=== PATIENT | female | born 1955 | race Caucasian/White ===

== ENCOUNTER → 2017-11-09 16:27 | Outpatient (CLI) | payer OTHER, SELFPAY ==
--- NOTE | 2017-11-09 16:27 | HPBI_ITS ---
MAMMOGRAPHY - BILATERAL SCREENING REASON FOR EXAM: Female, 62 years old. Routine annual screening examination. PERTINENT HISTORY: Mother with breast cancer. TECHNIQUE: Digital bilateral breast gina (3D mammographic acquisition) in the CC and MLO projections. 2-D mediolateral oblique (MLO) and craniocaudad (CC) views of both breasts were obtained. CAD: Full Field Digital Mammography with Computer Added Detection was performed. COMPARISON: Comparison is made with prior study dated October 21, 2016 and October 05, 2015. FINDINGS: Breast Composition: There are scattered areas of fibroglandular density. There are no dominant masses or suspicious calcifications. Once again, there are subcentimeters benign-appearing nodular densities in the retroareolar region of both breasts. Prior ultrasound of the breasts demonstrated them to be cysts and small calcified fibroadenomas. No other significant abnormalities are identified. There has been no significant change since the prior study. HPBI/SCREENING MAMM (CAD), BILAT IMPRESSION: Stable bilateral screening mammogram. Yearly follow-up mammogram recommended. (A) ASSESSMENT CATEGORY: BIRADS Category 2: Benign. A letter regarding these results will be sent to the patient by the facility within 30 days. Approximately 10% of breast cancers are not detected by mammography. A normal mammogram should not delay biopsy of a clinically suspicious abnormality. [id number] Electronically Signed: Fili Stone MD at 8:26 EST Tel [phone], Service support ,
== END ==
PROVIDERS: Family Provider Family Medicine; PCP Family Medicine
DX: Z12.31 Encounter for screening mammogram for malignant neoplasm of breast (principal)
CPT/HCPCS: 77063; 77067

== ENCOUNTER → 2018-03-23 15:31 | Outpatient (CLI) | payer OTHER, SELFPAY ==
--- NOTE | 2018-03-23 08:00 | COLBX_PTH ---
PATIENT: JONO GARCIA LOC: [facility] U#:[id number] AGE/SX: 70/F ROOM: RE03/23/[address]: Dr. Gera Sal MD : 1955 BED: DIS: SPEC #: [id number] RECD: 03/23/18 15:28 STATUS: ALE REBEKAH #: [id number] LEVON: 03/23/18 08:[address]: Gera Sal DEPT: SURGICAL PATHOLOGY RECD BY: Osmin Miller ENTERED: 03/26/18 07:46 SP TYPE: COLON BX MEJIA DR: Dr. Demarco Epstein, [facility] Tissues: COLON BIOPSY Procedures: Surgery Specimen Level IV HEADER OPERATION: Colonoscopy PRE-OP DIAGNOSIS: Screening / colitis TISSUE SUBMITTED: Right and left colon; rule out microscopic colitis MICROSCOPIC DIAGNOSIS Right and left colon, biopsy: Fragments of colonic mucosa, no pathologic diagnosis. DANILO:tay 03/27/18 MICROSCOPIC DESCRIPTION Slides are reviewed. GROSS DESCRIPTION Received in fixative is one container labeled with the patient's name and designated right and left colon. The specimen consists of multiple irregular fragments of light harrington soft tissue that in aggregate measure 1.5 x 0.5 x 0.1 cm. The specimen is totally submitted in one cassette. / SJ:rg 03/26/18 TC:4 CPT: 69004
== END ==
PROVIDERS: Visit Provider Internal Medicine Gastroenterology
DX: Z12.11 Encounter for screening for malignant neoplasm of colon (principal); K52.9 Noninfective gastroenteritis and colitis, unspecified
CPT/HCPCS: 88305

== ENCOUNTER → 2018-12-06 15:18 | Outpatient (CLI) | payer OTHER, SELFPAY ==
[2018-10-16 15:32] VITALS: BMI 21.8
--- NOTE | 2018-12-06 15:23 | BI_ITS ---
MAMMOGRAPHY - BILATERAL SCREENING REASON FOR EXAM: Female, 63 years old. Routine annual screening examination. PERTINENT HISTORY: Mother with breast cancer. TECHNIQUE: Digital bilateral breast gina (3D mammographic acquisition) in the CC and MLO projections. 2-D mediolateral oblique (MLO) and craniocaudad (CC) views of both breasts were obtained. CAD: Full Field Digital Mammography with Computer Added Detection was performed. COMPARISON: Comparison is made with prior examination dated November 09, 2017 and October 21, 2016. FINDINGS: Breast Composition: There are scattered areas of fibroglandular density. There are no dominant masses or suspicious calcifications. Once again, there are several small subcentimeter benign-appearing nodular densities in the retroareolar region of both breasts. Prior ultrasound of the breasts demonstrated these to be cysts and small calcified fibroadenomas. There has been no change. No other significant abnormalities are identified. There has been no significant change since the prior study. BI/SCREENING MAMM (CAD), BILAT IMPRESSION: Stable bilateral screening mammogram. Yearly follow-up mammogram recommended. (A) ASSESSMENT CATEGORY: BIRADS Category 2: Benign. A letter regarding these results will be sent to the patient by the facility within 30 days. Approximately 10% of breast cancers are not detected by mammography. A normal mammogram should not delay biopsy of a clinically suspicious abnormality. [id number] Electronically Signed: Fili Stone, at 9:40 EST , Service support ,
--- NOTE | 2018-12-06 15:27 | BD_ITS ---
STUDY: DUAL ENERGY X-RAY ABSORPTIOMETRY / DXA REASON FOR EXAM: Female, 63 years old. The patient is postmenopausal. Loss of height. TECHNIQUE: Bone Mineral Density (BMD) measurements of lumbar spine and bilateral hips were obtained. COMPARISON: None. FINDINGS: Lumbar Spine (L1-L4): g/cm2 (0.863) / T-score (-2.5) / Z-score (-1.0) Findings are suggestive of osteopenia with a high fracture risk. Left Femur Total: g/cm2 (0.774) / T-score (-1.9) / Z-score (-0.7) Left Femoral Neck: g/cm2 (0.729) / T-score (-2.2) / Z-score (-0.8) Right Femur Total: g/cm2 (0.724) / T-score (-2.3) / Z-score (-1.1) Right Femoral Neck: g/cm2 (0.700) / T-score (-2.4) / Z-score (-1.0) BD/Dexa Bone Density Study IMPRESSION: The patient is considered osteopenic as outlined below according to World Alexander Organization (WHO) criteria with a high fracture risk. Reference Information: The T-score is the number of standard deviations above or below the standard which is normal for young adults at their peak bone mineral density. The World Health Organization (WHO) interprets the T-scores as follows: Above -1 Normal bone density Between -1 and -2.5 Osteopenia Equal to / or below -2.5 Osteoporosis As a practical clinical guideline, osteopenia may be graded as follows: Mild -1 through -1.5 Moderate -1.6 through -2.0 Severe -2.1 through -2.4 The Z-score is the number of standard deviations above or below age-matched controls. A Z-score of less than -1.5 would be considered abnormal. References: 1. NIH Osteoporosis and Related Bone Diseases http://www.osteo.org 2. International Society for Clinical Densitometry http://www.iscd.org 3. National Osteoporosis Foundation http://www.nof.org Electronically Signed: Fili Stone, at 16:02 EST , Service support ,
[2018-12-06 17:14] LABS: Anion Gap 9 (5-15); BUN 12 mg/dL (7-18); BUN/Creat Ratio 17.8 RATIO (10-20); Calcium,Total 9.3 mg/dL (8.5-10.1); Chloride 105 mmol/L (98-107); Creatinine, Serum 0.68 mg/dL (0.55-1.02); EST Glomerular Filtration Rate 94 mL/min (>60); Est Glom Filt Rate - Afr Amer 113 mL/min (>60); Glucose 88 mg/dL (74-106); Potassium 4.3 mmol/L (3.5-5.1); Sodium Level 142 mmol/L (136-145)
== END ==
PROVIDERS: Family Provider Family Medicine; PCP Family Medicine; Referring Provider Family Medicine; Visit Provider Family Medicine
DX: Z12.31 Encounter for screening mammogram for malignant neoplasm of breast (principal); Z80.3 Family history of malignant neoplasm of breast; Z78.0 Asymptomatic menopausal state; K58.9 Irritable bowel syndrome, unspecified
CPT/HCPCS: 36415; 77067; 77080; 80048

== ENCOUNTER → 2019-12-09 07:29 | Outpatient (CLI) | payer OTHER, SELFPAY ==
[2019-10-16 15:33] VITALS: BMI 21.8
--- NOTE | 2019-12-09 07:30 | BI_ITS ---
MAMMOGRAPHY - BILATERAL SCREENING REASON FOR EXAM: Female, 64 years old. Routine annual screening examination. PERTINENT HISTORY: Mother with breast cancer. TECHNIQUE: Digital bilateral breast lisa (3D mammographic acquisition) in the CC and MLO projections. 2-D mediolateral oblique (MLO) and craniocaudad (CC) views of both breasts were obtained. CAD: Full Field Digital Mammography with Computer Added Detection was performed. COMPARISON: Comparison is made with prior study dated December 06, 2018 and November 09, 2017. FINDINGS: Breast Composition: There are scattered areas of fibroglandular density. There are no dominant masses or suspicious calcifications. Stable small well-defined bilateral breast nodules. Prior ultrasound demonstrated to be multiple small cysts as well as a calcified fibroadenoma in the retroareolar region of the right breast. No other significant abnormalities are identified. There has been no significant change since the prior study. BI/SCREEN MAMM (CAD) W/LISA BILAT IMPRESSION: Stable bilateral screening mammogram. Yearly follow-up mammogram recommended. (A) ASSESSMENT CATEGORY: BIRADS Category 2: Benign. A letter regarding these results will be sent to the patient by the facility within 30 days. Approximately 10% of breast cancers are not detected by mammography. A normal mammogram should not delay biopsy of a clinically suspicious abnormality. [id number] Electronically Signed: Fili Stone, at 9:30 EST , Service support ,
== END ==
PROVIDERS: Family Provider Family Medicine; PCP Family Medicine; Referring Provider Family Medicine; Visit Provider Family Medicine
DX: Z12.31 Encounter for screening mammogram for malignant neoplasm of breast (principal)
CPT/HCPCS: 77063; 77067

== ENCOUNTER → 2020-10-20 13:35 | Outpatient (CLI) | payer MEDICARE, SELFPAY ==
[2020-10-20 13:11] VITALS: BMI 20.4
[2020-10-20 15:39] LABS: Absolute Lymphocyte Count 2.46 X10^3/uL (0.83-4.51); Absolute Neutrophil Count 3.5 X10^3/uL (2.0-7.7); Basophil# 0.05 X10^3/uL; Basophil% 0.7 % (0-1); Eosinophils% 1.5 % (0-5); Hematocrit 44.7 % (37-47); Hemoglobin 14.2 g/dL (12.0-15.0); Lymphocyte # 2.46 X10^3/ul (4.0); Lymphocyte % 36.7 % (19-41); Mean Corp Hgb Conc 31.8 g/dL (32-36); Mean Corpuscular Hgb 30.3 pg (27.0-32.0); Mean Corpuscular Volume 95.3 fL (81-99); Mean Platelet Vol. 9.7 fl (6.2-12.0); Monocyte# 0.59 X10^3/uL; Monocyte% 8.8 % (0-10); NRBC Flagged by Analyzer 0 % (0-5); Neutrophil # 3.47 X10^3/uL (2.7-7.7); Neutrophil % 51.9 % (47-70); Platelet Count 222 K/mm3 (150-450); RBC Distribution Width CV 13.6 % (11.6-14.6); RBC Distribution Width SD 48.2 fl (35.1-43.9); Red Blood Count 4.69 M/mm3 (4.2-5.4); White Blood Count 6.7 K/mm3 (4.4-11.0)
[2020-10-20 16:46] LABS: Anion Gap 5 (5-15); BUN 12 mg/dL (7-18); BUN/Creat Ratio 17.1 RATIO (10-20); Calcium,Total 9.3 mg/dL (8.5-10.1); Chloride 105 mmol/L (98-107); EST Glomerular Filtration Rate 89 mL/min (>60); Est Glom Filt Rate - Afr Amer 107 mL/min (>60); Glucose 127 mg/dL (74-106); Potassium 3.8 mmol/L (3.5-5.1); Sodium Level 139 mmol/L (136-145)
== END ==
PROVIDERS: PCP Family Medicine; Referring Provider Family Medicine; Visit Provider Family Medicine
DX: R63.4 Abnormal weight loss (principal); E73.9 Lactose intolerance, unspecified
CPT/HCPCS: 36415; 80048; 85025

== ENCOUNTER → 2020-12-09 07:46 | Outpatient (CLI) | payer MEDICARE, SELFPAY ==
[2020-10-20 13:11] VITALS: BMI 20.4
--- NOTE | 2020-12-09 07:48 | BI_ITS ---
MAMMOGRAPHY - BILATERAL SCREENING REASON FOR EXAM: Female, 65 years old. Routine annual screening examination. PERTINENT HISTORY: Non-contributory. TECHNIQUE: Digital bilateral breast lisa (3D mammographic acquisition) in the CC and MLO projections. 2-D mediolateral oblique (MLO) and craniocaudad (CC) views of both breasts were obtained. CAD: Full Field Digital Mammography with Computer Added Detection was performed. COMPARISON: Comparison is made with prior study dated 12/09/2019 and 07/06/2019. FINDINGS: Breast Composition: There are scattered areas of fibroglandular density. There are no dominant masses or suspicious calcifications. Stable small well-defined lateral rest nodules. Prior sonograms demonstrated these to be small cysts. Stable calcified fibroadenoma in the retroareolar region of the right breast. No other significant abnormalities are identified. There has been no significant change since the prior study. BI/SCRN MAMM (CAD)W/LISA BILAT IMPRESSION: Stable bilateral screening mammogram. Yearly follow-up mammogram recommended. (A) ASSESSMENT CATEGORY: BIRADS Category 2: Benign. A letter regarding these results will be sent to the patient by the facility within 30 days. Approximately 10% of breast cancers are not detected by mammography. A normal mammogram should not delay biopsy of a clinically suspicious abnormality. [id number] Electronically Signed: Fili Stone MD at 8:48 EST , Service support ,
== END ==
PROVIDERS: PCP Family Medicine; Referring Provider Family Medicine; Visit Provider Family Medicine
DX: Z12.31 Encounter for screening mammogram for malignant neoplasm of breast (principal)
CPT/HCPCS: 77063; 77067

== ENCOUNTER 2020-12-17 07:29 | Outpatient (RCR) | payer MEDICARE, SELFPAY ==
[2020-10-20 13:11] VITALS: BMI 20.4
[2020-12-17] MEDS: COVID-19 VACC, MRNA(PFIZER)/PF 30 MCG/0.3 ML SYRINGE IM (12:41)
[2021-01-07] MEDS: COVID-19 VACC, MRNA(PFIZER)/PF 30 MCG/0.3 ML SYRINGE IM (12:38)
== END 2021-03-16 23:59 ==
LOC: IMMUN 07:29
PROVIDERS: PCP Family Medicine; Referring Provider Family Medicine; Visit Provider Family Medicine
DX: Z23 Encounter for immunization (principal)
CPT/HCPCS: 0001A; 0002A; 91300

== ENCOUNTER → 2021-04-20 14:30 | Outpatient (CLI) | payer MEDICARE, SELFPAY ==
[2021-04-20 14:07] VITALS: BMI 20.4
[2021-04-20 15:48] LABS: Amylase 61 U/L (25-115); Anion Gap 3 (5-15); BUN 14 mg/dL (7-18); BUN/Creat Ratio 19.6 RATIO (10-20); Calcium,Total 9.2 mg/dL (8.5-10.1); Chloride 104 mmol/L (98-107); Creatinine, Serum 0.71 mg/dL (0.55-1.02); EST Glomerular Filtration Rate 87 mL/min (>60); Est Glom Filt Rate - Afr Amer 105 mL/min (>60); Glucose 87 mg/dL (74-106); Lipase 216 U/L (73-393); Sodium Level 140 mmol/L (136-145)
== END ==
PROVIDERS: PCP Family Medicine; Referring Provider Family Medicine; Visit Provider Family Medicine
DX: R63.4 Abnormal weight loss (principal)
CPT/HCPCS: 36415; 80048; 82150; 83690

== ENCOUNTER 2021-04-21 14:55 | Inpatient (IN) | payer MEDICARE, SELFPAY ==
[2021-04-20 14:07] VITALS: BMI 20.4
[2021-04-21] VITALS (12 sets, daily range): BP systolic 155–213; BP diastolic 86–110; PULSE 74–94; RESP 14–18; TEMP 36.5–37.2; O2SAT 92–100; BMI 19.2; BMI 19.1
--- NOTE | 2021-04-21 | IMM_PTH ---
PATIENT: JONO GACRIA LOC: [facility] U#:[id number] AGE/SX: 66/F ROOM: [facility] RE04/22/[address]: Dr. Aidan Parr DO : 1955 BED: 1 DIS: 04/24/2021 SPEC #: [id number] RECD: 04/27/21 07:35 STATUS: ALE REQ #: [id number] LEVON: 04/21/21 00:[address]: Gilberto Matt DEPT: IMMUNOHISTOCHEMISTRY RECD BY: Sydney Cm ENTERED: 04/27/21 07:36 SP TYPE: IMMUNO OTHR DR: DO Dr. Aidan Lozano DO Dr. Nana Yaa Koram, MD Tissues: C - Small intestine biopsy Procedures: Synapto (add) CD56 (add) CHROMO (add) CK20 (add) CK7 (add) CK8 (add) KI-67 (add) Pankeratin (initial) PHYSICIAN & [address] [address] SPECIMEN INFORMATION: Tissue Source: C ? Small bowel segment Clinical Info: Abnormal right colon Specimen Number: [id number] C2 CPT code: 43881, 11382 x7 METHODOLOGY: Deparaffinized sections of prefer/formalin-fixed tissue or PAP/DQ stained slides are incubated with monoclonal/polyclonal antibodies/oligonucleotide probes. Localization is made via biotin free immunoperoxidase method. Appropriate controls are performed and reacted as expected. Results on target cell population are indicated in the following table: RESULTS: ANTIBODY / CLONE RESULT Block C2 AE1-3 (AE1/AE3/PCK26) positive CK7 (OV-TL12/30) negative CK8 (67ctgvR96) positive CK20 (KS20.8) negative CD56 (123C3.D5) positive, weak and focal Chromo (LK2H10) positive Synapto (polyclonal) positive Ki-67 (30-9) <1% These tests were developed and their performance characteristics determined by [facility]. They may not have been cleared or approved by the U.S. Food and Drug Administration. The FDA has determined that such clearance or approval is not necessary. The above immunohistochemical/dualISH markers are ordered and reviewed by the Pathologist. INTERPRETATION: C. Small bowel, segmental resection: Well-differentiated neuroendocrine tumor, G1 (carcinoid tumor). DANILO:tay 04/27/2021 Case has been reviewed in consultation with Dr. Barrett who concurs with the above diagnosis. IDC:AM
--- NOTE | 2021-04-21 15:37 | EDS_ITS ---
HPI <Dr. Nato Arroyo MD - Last Filed: 04/21/21 17:05> HPI - GI History of Present Illness Chief Complaint: Abd Pain Informant: patient and spouse/S.O. Abdominal Pain/Flank Pain Onset: Yesterday Context: Gradual Onset Timing: Continuous Quality: Aching Location: Diffuse Current Severity: Severe Maximum Severity: Severe Worsened by: Nothing Relieved by: Nothing (Tried Tylenol) Nausea/Vomiting/Emesis GI Symptom: Positive for Nausea and Vomiting Quality: Positive for Nonbilious; Negative for Blood streaks, Coffee ground and Hematemesis Severity: Mild Diarrhea/Melena/Hematochezia GI Symptom: Positive for - (No bowel movement today or yesterday. Normal prior to that.); Negative for Diarrhea, Melena and Hematochezia Associated Symptoms Associated Symptoms: Negative for Dysuria, Frequency, Hematuria and Urgency Narrative Narrative: Patient states she has been having intermittent episodes of this abdominal pain for over 2 years. She states episodes typically last about 5 hours. She started getting it yesterday and happened to have a routine appointment scheduled with her PCP, and had it while she was there. He ordered some blood work and the patient states he was ordering a CT scan. The pain has been persistent and unrelenting which is unusual, and the severity has increased. Given that she presents to the emergency department under her doctor's advice prior to approval of the outpatient CT. [facility] <Dr. Nato Arroyo MD - Last Filed: 04/21/21 17:05> [facility] Medical History (Updated 04/21/21 @ 19:[address] Junito Rajput, DO) Anxiety Arthritis Depression IBS (irritable bowel syndrome) Osteopenia Home Medications alprazolam 0.25 mg tablet 0.25 mg PO TID PRN #90 tab 01/19/21 [Rx Last Taken 04/21/21] acetaminophen [Tylenol Extra Strength] 1,000 mg PO Q6H PRN 04/21/21 [History Last Taken 04/21/21 11:00] hydrocodone 10 mg-acetaminophen 325 mg tablet 1 tab PO Q6H PRN 4 Days #20 tab 04/21/21 [Rx Last Taken Unknown] paroxetine HCl [Paxil] 20 mg PO DAILY 04/21/21 [History Last Taken 04/21/21] Allergy/AdvReac Type Severity Reaction Status Date / Time ibuprofen [From Advil] Allergy Intermediate stomach Verified 04/21/21 14:56 problems Family History Mother Breast cancer Father Cancer Surgical History History of colonoscopy History of partial hysterectomy Social History Smoking Status: Current every day smoker tobacco type: cigarettes alcohol intake: current alcohol intake frequency: holidays/special occasions only Alcohol type: wine substance use type: does not use what type of physical activity do you participate in: walking and bicycling ROS <Dr. Nato Arroyo MD - Last Filed: 04/21/21 17:05> ROS ED Constitutional Constitutional ED: Reports weight loss and other Details: Has unintentionally lost about 20 pounds in the past 6-12 months ; Denies chills or fever(s) Eyes Eyes: Denies change in vision or diplopia ENT ENT ED: Denies rhinorrhea or sore throat Cardiovascular Cardiovascular: Denies chest pain or palpitations Respiratory/Chest Respiratory/Chest: Denies cough or dyspnea Gastrointestinal Gastrointestinal: Reports abdominal pain, nausea and vomiting; Denies diarrhea Genitourinary Genitourinary ED: Denies dysuria or hematuria Musculoskeletal Musculoskeletal: Denies back pain or neck pain Integumentary Denies abscess or rash Neurologic Neurologic: Denies headache(s), paresthesias or weakness Psychiatric Psychiatric: Denies anxiety or suicidal thoughts EXAM <Dr. Nato Arroyo MD - Last Filed: 04/21/21 17:05> Physical Exam Const Vital Signs: 04/21/21 14:56 04/21/21 17:18 04/21/21 17:42 Temperature 97.8 F Temperature Source Temporal Pulse Rate 94 74 77 Respiratory Rate 17 18 18 Blood Pressure 155/101 H 190/110 H 207/102 H Blood Pressure Mean 119 136 137 Blood Pressure Source Blood Pressure Position Blood Pressure Location Pulse Ox 96 98 95 Oxygen Delivery Method Room Air Room Air Room Air 04/21/21 18:11 04/21/21 18:46 04/21/21 19:01 Temperature 98.9 F 98.9 F Temperature Source Temporal Temporal Pulse Rate 77 77 77 Respiratory Rate 16 16 16 Blood Pressure 213/103 H 187/99 H 187/99 H Blood Pressure Mean 139 128 128 Blood Pressure Source Monitor Blood Pressure Position Semi-Fowlers Blood Pressure Location Right Arm Pulse Ox 93 96 96 Oxygen Delivery Method Room Air Room Air Room Air Positive well nourished and well developed Constitutional Narrative: Thin General Appearance ED: well developed and NAD HEENT Reports moist mucous membranes normocephalic and atraumatic Eyes PERRL and EOMs intact bilaterally Neck full ROM and supple Resp normal respiratory effort and clear to auscultation bilaterally Cardio regular rate, regular rhythm and no murmurs GI GI Narrative: Distended, soft, diffusely tender but mostly in the epigastrium and left upper quadrant, and even more so in the right lower quadrant with voluntary guarding, no rebound tenderness Auscultation: normoactive bowel sounds Palpation: soft Back/Spine no CVA tenderness General Back: other FROM Extremity normal to inspection General Extremety ED: Negative for edema, pulses abnormal or tenderness General Extremity: Negative for edema or pulses abnormal Neuro oriented x3, CN's II-XII intact bilaterally and no sensory deficits noted Sensorium / Orientation: awake and alert Motor Exam: strength 5/5 throughout Skin no rashes or lesions noted and no wounds <Dr. Junito Rajput DO - Last Filed: 04/21/21 19:11> Physical Exam Const Vital Signs: 04/21/21 14:56 04/21/21 17:18 04/21/21 17:42 Temperature 97.8 F Temperature Source Temporal Pulse Rate 94 74 77 Respiratory Rate 17 18 18 Blood Pressure 155/101 H 190/110 H 207/102 H Blood Pressure Mean 119 136 137 Blood Pressure Source Blood Pressure Position Blood Pressure Location Pulse Ox 96 98 95 Oxygen Delivery Method Room Air Room Air Room Air 04/21/21 18:11 04/21/21 18:46 04/21/21 19:01 Temperature 98.9 F 98.9 F Temperature Source Temporal Temporal Pulse Rate 77 77 77 Respiratory Rate 16 16 16 Blood Pressure 213/103 H 187/99 H 187/99 H Blood Pressure Mean 139 128 128 Blood Pressure Source Monitor Blood Pressure Position Semi-Fowlers Blood Pressure Location Right Arm Pulse Ox 93 96 96 Oxygen Delivery Method Room Air Room Air Room Air MDM <Dr. Nato Arroyo MD - Last Filed: 04/21/21 17:05> [facility] MDM Narrative Medical decision making narrative: Labs were obtained and noted. She does have a leukocytosis that is relatively mild. CT ordered. Patient treated with IV fluids, Zofran, morphine. Checked out to oncoming emergency physician at shift change. Lab Data Attestation: I reviewed the patient's lab results. Labs: Laboratory Results - last 24 hr 04/21/21 04/21/21 04/21/21 16:20 16:20 17:12 WBC 13.9 H RBC 5.46 H Hgb 16.8 H Hct 50.6 H MCV 92.7 MCH 30.8 MCHC 33.2 RDW Std Deviation 44.9 H RDW Coeff of Reece 13.2 Plt Count 228 MPV 9.2 Immature Gran % (Auto) 0.300 Neut % (Auto) 76.9 H Lymph % (Auto) 15.0 L [place] % (Auto) 7.2 Eos % (Auto) 0.2 Baso % (Auto) 0.4 Absolute Neuts (auto) 10.7 H Absolute Lymphs (auto) 2.09 Nucleated RBC % 0 Sodium 134 L Potassium 3.8 Chloride 101 Carbon Dioxide 25.0 Anion Gap 8 BUN 13 Creatinine 0.69 Estim Creat Clear Calc 43.07 Est GFR (MDRD) Af Amer 109 Est GFR (MDRD) Non-Af 90 BUN/Creatinine Ratio 18.7 Glucose 135 H Calcium 9.3 Total Bilirubin 0.60 AST 16 ALT 26 Alkaline Phosphatase 104 Total Protein 8.1 Albumin 4.2 Globulin 3.9 Albumin/Globulin Ratio 1.1 Urine Color Yellow Urine Clarity Clear Urine pH 6.0 Ur Specific Spray 1.020 Urine Protein 100 H Urine Glucose (UA) Normal Urine Ketones 50 H Urine Occult Blood 150 H Urine Nitrite Negative Urine Bilirubin Negative Urine Urobilinogen Normal Ur Leukocyte Esterase Negative Urine RBC 10-25 SEEN Urine WBC 0 SEEN Ur Squamous Epith Cells 0 SEEN Urine Bacteria 1+ Urine Mucus 1+ Radiography Diagnostic Testing: Radiology Impression Abdomen/Pelvis CT 04/21/21 17:20 IMPRESSION: 1. 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 2. Secondary mild to moderate free fluid. Electronically Signed: Nicholas Cardenas MD at 17:48 EDT , Service support , <Dr. Junito Rajput, DO - Last Filed: 04/21/21 19:11> [facility] Narrative Medical decision making narrative: Patient signed out to me due to end of shift. I did follow-up on the patient's CT scan. This was read as a mesenteric volvulus with at least a partial bowel obstruction. I did speak with the on- call general surgeon, Dr. Matt who came to bedside to evaluate the patient. He is planning on taking patient to the operating room now. Patient otherwise has remained stable throughout ED stay. She is in no acute distress on my reexamination. Patient explained all findings and she is agreeable with this plan. Lab Data Labs: Laboratory Results - last 24 hr 04/21/21 04/21/21 04/21/21 16:20 16:20 17:12 WBC 13.9 H RBC 5.46 H Hgb 16.8 H Hct 50.6 H MCV 92.7 MCH 30.8 MCHC 33.2 RDW Std Deviation 44.9 H RDW Coeff of Reece 13.2 Plt Count 228 MPV 9.2 Immature Gran % (Auto) 0.300 Neut % (Auto) 76.9 H Lymph % (Auto) 15.0 L [place] % (Auto) 7.2 Eos % (Auto) 0.2 Baso % (Auto) 0.4 Absolute Neuts (auto) 10.7 H Absolute Lymphs (auto) 2.09 Nucleated RBC % 0 Sodium 134 L Potassium 3.8 Chloride 101 Carbon Dioxide 25.0 Anion Gap 8 BUN 13 Creatinine 0.69 Estim Creat Clear Calc 43.07 Est GFR (MDRD) Af Amer 109 Est GFR (MDRD) Non-Af 90 BUN/Creatinine Ratio 18.7 Glucose 135 H Calcium 9.3 Total Bilirubin 0.60 AST 16 ALT 26 Alkaline Phosphatase 104 Total Protein 8.1 Albumin 4.2 Globulin 3.9 Albumin/Globulin Ratio 1.1 Urine Color Yellow Urine Clarity Clear Urine pH 6.0 Ur Specific Spray 1.020 Urine Protein 100 H Urine Glucose (UA) Normal Urine Ketones 50 H Urine Occult Blood 150 H Urine Nitrite Negative Urine Bilirubin Negative Urine Urobilinogen Normal Ur Leukocyte Esterase Negative Urine RBC 10-25 SEEN Urine WBC 0 SEEN Ur Squamous Epith Cells 0 SEEN Urine Bacteria 1+ Urine Mucus 1+ Radiography Diagnostic Testing: Radiology Impression Abdomen/Pelvis CT 04/21/21 17:20 IMPRESSION: 1. 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 2. Secondary mild to moderate free fluid. Electronically Signed: Nicholas Cardenas MD at 17:48 EDT , Service support , Discharge Plan Dx/Rx/DC Orders Clinical Impression: Volvulus, Bowel obstruction, Abdominal pain Disposition Disposition: Acute Care Hospital [facility] Discharge Date/Time: 04/21/21 19:10
[2021-04-21] MEDS: 0.9% Normal Saline 1,000 ML 1000 ML IV (16:12)
[2021-04-21] MEDS: Ondansetron 4 MG/2 ML Vial IV ×2 (16:12→17:36)
[2021-04-21] MEDS: Morphine 4 MG/ML Syringe IV (16:12)
[2021-04-21 16:36] LABS: Absolute Lymphocyte Count 2.09 X10^3/uL (0.83-4.51); Absolute Neutrophil Count 10.7 X10^3/uL (2.0-7.7); Basophil# 0.05 X10^3/uL; Basophil% 0.4 % (0-1); Eosinophil# 0.03 X10^3/uL; Eosinophils% 0.2 % (0-5); Hematocrit 50.6 % (37-47); Hemoglobin 16.8 g/dL (12.0-15.0); Lymphocyte # 2.09 X10^3/ul (0.83-4.51); Mean Corp Hgb Conc 33.2 g/dL (32-36); Mean Corpuscular Hgb 30.8 pg (27.0-32.0); Mean Corpuscular Volume 92.7 fL (81-99); Mean Platelet Vol. 9.2 fl (6.2-12.0); Monocyte% 7.2 % (0-10); NRBC Flagged by Analyzer 0 % (0-5); Neutrophil % 76.9 % (47-70); Platelet Count 228 K/mm3 (150-450); RBC Distribution Width CV 13.2 % (11.6-14.6); RBC Distribution Width SD 44.9 fl (35.1-43.9); Red Blood Count 5.46 M/mm3 (4.2-5.4); White Blood Count 13.9 K/mm3 (4.4-11.0)
[2021-04-21 17:01] LABS: ALB/GLOB Ratio 1.1 RATIO (0.9-2.4); AST(SGOT) 16 U/L (15-37); Alanine Aminotransfer ALT/SGPT 26 U/L (13-56); Albumin, Serum 4.2 g/dL (3.2-5.0); Alkaline Phosphatase 104 U/L (45-117); Anion Gap 8 (5-15); BUN 13 mg/dL (7-18); BUN/Creat Ratio 18.7 RATIO (10-20); Calcium,Total 9.3 mg/dL (8.5-10.1); Chloride 101 mmol/L (98-107); Creatinine, Serum 0.69 mg/dL (0.55-1.02); EST Glomerular Filtration Rate 90 mL/min (>60); Est Glom Filt Rate - Afr Amer 109 mL/min (>60); Estimated Creatinine Clearance 43.07 ml/min; Globulin 3.9 g/dL (2.2-4.2); Glucose 135 mg/dL (74-106); Potassium 3.8 mmol/L (3.5-5.1); Protein, Total 8.1 g/dL (6.4-8.2); Sodium Level 134 mmol/L (136-145)
--- NOTE | 2021-04-21 17:20 | CT_ITS ---
EXAM: CT ABDOMEN AND PELVIS WITH INTRAVENOUS CONTRAST CLINICAL INDICATION: diffuse abd pain, n/v TECHNIQUE: Helically acquired images were obtained of the abdomen and pelvis with intravenous contrast. This CT exam was performed using one or more of the following dose reduction techniques: automated exposure control, adjustment of the mA and/or kV according to patient size, and/or use of iterative reconstruction technique. [employer] report generation technology utilized. CONTRAST: IV 75mL [id number] COMPARISON: None. FINDINGS: LOWER THORAX: Unremarkable. Lung bases are clear. No cardiomegaly. No significant pericardial effusion. ABDOMEN: LIVER: Unremarkable. Homogeneous. No focal mass. GALLBLADDER AND BILE DUCTS: Unremarkable. No calcified gallstones. Distended gallbladder. No intra- or extrahepatic biliary ductal dilation. PANCREAS: Unremarkable. No focal cystic or solid mass. SPLEEN: Unremarkable. Normal size without focal cystic or solid mass. ADRENALS: Unremarkable. No nodules. KIDNEYS AND URETERS: Unremarkable. Normal renal size and position. No hydronephrosis. STOMACH AND BOWEL: Evaluation of the GI tract is limited by absence of oral contrast. Grossly normal appearance of the stomach and small bowel. Markedly distended right colon with a thickened wall and prominent adjacent edema. Findings appear to be related to cecal volvulus which can be seen on axial images 58-68 and coronal images 29-47. PELVIS: APPENDIX: No evidence of acute appendicitis. BLADDER: Unremarkable. REPRODUCTIVE: Absent uterus. ABDOMEN and PELVIS: INTRAPERITONEAL SPACE: Small to moderate free fluid especially in the pelvis. No free air. BONES/JOINTS: Degenerative changes of the skeletal structures. No suspicious lytic or blastic abnormality. SOFT TISSUES: Unremarkable. No discrete abdominal or pelvic wall hernia. VASCULATURE: Prominently calcified plaque of the aorta. Abdominal aorta is non-dilated. LYMPH NODES: Unremarkable. No enlarged lymph nodes. CT/Abdomen/Pelvis W IV Cont ONLY IMPRESSION: 1. 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 2. Secondary mild to moderate free fluid. Electronically Signed: Nicholas Cardenas MD at 17:48 EDT , Service support ,
[2021-04-21 17:21] LABS: Color, Urine Yellow (Yellow); Glucose, Dipstick Normal (Normal); Ketone-Dipstick 50 mg/dl (Negative); Leukocyte Esterase-Dipstick Negative /ul (Negative); Nitrite-Dipstick Negative (Negative); Occult Blood-Urine 150 /ul (Negative); Protein-Dipstick 100 mg/dl (Negative); Squamous Epithelial Cells - UA 0 SEEN /hpf (5-10); Urine Bilirubin Dipstick Negative (Negative); Urine Clarity Clear (Clear); Urine Urobilinogen Normal (Normal); White Blood Cells 0 SEEN /hpf (0-5)
[2021-04-21] MEDS: HYDROmorphone 0.5 MG/0.5 ML SYRINGE IV (17:37)
[2021-04-21 17:53] LABS: Bacteria 1+ /hpf (None Seen); Mucous, Urine 1+ /hpf (<or=2+); Red Blood Cells-Urine 10-25 SEEN /hpf (0-5)
--- NOTE | 2021-04-21 18:23 | EKG12_ITS ---
Test Reason : PRE-OP Blood Pressure : / mmHG Vent. Rate : 073 BPM Atrial Rate : 073 BPM P-R Int : 172 ms QRS Dur : 074 ms QT Int : 420 ms P-R-T Axes : 060 -44 056 degrees QTc Int : 462 ms Normal sinus rhythm Left axis deviation Low voltage QRS Abnormal ECG Confirmed by LESLIE CORNELL, BLANE ([id number]), brands editor ZACHERY RODRIGUEZ ([id number]) on 04/23/2021 9:24:44 AM Referred By: Gilberto Matt Confirmed By:KYLAH NELSON MD
--- NOTE | 2021-04-21 18:53 | HP.PCM.SX_ITS ---
HPI - General HPI Narrative JEFFERY GARCIA, is a 66 F who presents with abdominal pain. Patient been having on and off abdominal pain for last few months but yesterday she started having pain that did not go away. She does not have any nausea vomiting. Pain is in the right side of her abdomen. Patient denies any fevers or chills. [facility] Medical History (Updated 04/21/21 @ 18:[address] Gilberto Matt MD) Anxiety Arthritis Depression IBS (irritable bowel syndrome) Osteopenia Home Medications alprazolam 0.25 mg tablet 0.25 mg PO TID PRN #90 tab 01/19/21 [Rx Last Taken 04/21/21] acetaminophen [Tylenol Extra Strength] 1,000 mg PO Q6H PRN 04/21/21 [History Last Taken 04/21/21 11:00] hydrocodone 10 mg-acetaminophen 325 mg tablet 1 tab PO Q6H PRN 4 Days #20 tab 04/21/21 [Rx Last Taken Unknown] paroxetine HCl [Paxil] 20 mg PO DAILY 04/21/21 [History Last Taken 04/21/21] Allergy/AdvReac Type Severity Reaction Status Date / Time ibuprofen [From Advil] Allergy Intermediate stomach Verified 04/21/21 14:56 problems Family History Mother Breast cancer Father Cancer Surgical History History of colonoscopy History of partial hysterectomy Social History Smoking Status: Current every day smoker tobacco type: cigarettes alcohol intake: current alcohol intake frequency: holidays/special occasions only Alcohol type: wine substance use type: does not use what type of physical activity do you participate in: walking and bicycling ROS Constitutional Constitutional: Denies anorexia or fatigue ENT HEENT: Denies abnormal hearing Cardiovascular Cardiovascular: Denies chest pain Respiratory/Chest Respiratory/Chest: Denies cough Gastrointestinal Gastrointestinal: Reports abdominal pain and nausea; Denies diarrhea, dysphagia, hematemesis or vomiting Genitourinary Genitourinary: Denies difficulty urinating Musculoskeletal Musculoskeletal: Denies abnormal gait Integumentary Integumentary: Denies jaundice Neurologic Neurologic: Denies dizziness Psychiatric Psychiatric: Denies anxiety Endocrine Endocrinology: Denies flushing Hematologic/Lymphatic Hematologic/Lymphatic: Denies easy bleeding Vital Signs Vital Signs Vital Signs: 04/21/21 14:56 04/21/21 17:18 04/21/21 17:42 Temperature 97.8 F Temperature Source Temporal Pulse Rate 94 74 77 Respiratory Rate 17 18 18 Blood Pressure 155/101 H 190/110 H 207/102 H Blood Pressure Mean 119 136 137 Pulse Ox 96 98 95 Oxygen Delivery Method Room Air Room Air Room Air 04/21/21 18:11 Temperature Temperature Source Pulse Rate 77 Respiratory Rate 16 Blood Pressure 213/103 H Blood Pressure Mean 139 Pulse Ox 93 Oxygen Delivery Method Room Air Weight Weight: 108 lb 11.006 oz Body Mass Index (BMI) 19.2 Physical Exam Const oriented x3 and no apparent distress Resp normal respiratory effort Cardio regular rate and regular rhythm GI soft to palpation Palpation: tender RLQ and RUQ Extremity full ROM Results Lab / Micro Data Result Diagrams: 04/21/21 16:20 04/21/21 16:20 Labs: Laboratory Results - last 24 hr 04/21/21 16:20: WBC 13.9 H, RBC 5.46 H, Hgb 16.8 H, Hct 50.6 H, MCV 92.7, MCH 30.8, MCHC 33.2, RDW Std Deviation 44.9 H, RDW Coeff of Reece 13.2, Plt Count 228, MPV 9.2, Immature Gran % (Auto) 0.300, Neut % (Auto) 76.9 H, Lymph % (Auto) 15.0 L, [place] % (Auto) 7.2, Eos % (Auto) 0.2, Baso % (Auto) 0.4, Absolute Neuts (auto) 10.7 H, Absolute Lymphs (auto) 2.09, Nucleated RBC % 0 04/21/21 16:20: Sodium 134 L, Potassium 3.8, Chloride 101, Carbon Dioxide 25.0, Anion Gap 8, BUN 13, Creatinine 0.69, Estim Creat Clear Calc 43.07, Est GFR (MD LOMELI) Af Amer 109, Est GFR (MDRD) Non-Af 90, BUN/Creatinine Ratio 18.7, Glucose 135 H, Calcium 9.3, Total Bilirubin 0.60, AST 16, ALT 26, Alkaline Phosphatase 104, Total Protein 8.1, Albumin 4.2, Globulin 3.9, Albumin/Globulin Ratio 1.1 04/21/21 17:12: Urine Color Yellow, Urine Clarity Clear, Urine pH 6.0, Ur Specific [place] 1.020, Urine Protein 100 H, Urine Glucose (UA) Normal, Urine Ketones 50 H, Urine Occult Blood 150 H, Urine Nitrite Negative, Urine Bilirubin Negative, Urine Urobilinogen Normal, Ur Leukocyte Esterase Negative, Urine RBC 10-25 SEEN, Urine WBC 0 SEEN, Ur Squamous Epith Cells 0 SEEN, Urine Bacteria 1+, Urine Mucus 1+ Radiology Impression Abdomen/Pelvis CT 04/21/21 17:20 IMPRESSION: 1. 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 2. Secondary mild to moderate free fluid. Electronically Signed: Nicholas Cardenas MD at 17:48 EDT , Service support , Assessment & Plan Assessment/Plan (1) Cecal volvulus: PLAN: The patient has significant abdominal pain. I reviewed her CT scan which shows a significant amount of free fluid as well as enlarged cecum and mesenteric swirling suggestive of cecal volvulus. Patient also has elevated white count. I discussed all these findings with the patient and her . I recommended exploratory laparotomy with right hemicolectomy. I discussed the procedure in detail including the risks including but not limited to bleeding, infection, injury to underlying organs such as the small bowel bladder or kidney, anastomotic leak. Patient understands risks and is willing proceed with surgery. Gilberto Matt MD Pager: [facility] [address] [place] [address], [address] [place] [address] Office:
--- NOTE | 2021-04-21 19:00 | COL_PTH ---
PATIENT: JONO GARCIA LOC: [facility] U#:[id number] AGE/SX: 66/F ROOM: [facility] RE04/22/[address]: Dr. Aidan Parr DO : 1955 BED: 1 DIS: 04/24/2021 SPEC #: [id number] RECD: 04/22/21 06:33 STATUS: ALE REMaximilian #: [id number] LEVON: 04/21/21 19:[address]: Gilberto Matt DEPT: SURGICAL PATHOLOGY RECD BY: Jane Kim ENTERED: 04/22/21 08:31 SP TYPE: COLON OTHR DR: MD Dr. Demarco Rios DO Dr. Mark Tereletsky, DO Dr. 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 Right colon, B ? Mesenteric lymph node, C ? Small bowel segment MICROSCOPIC DIAGNOSIS A. Right colon, hemicolectomy: Transmural hemorrhage involving large bowel, small bowel and ileocecal valve, consistent with volvulus. Appendix, focal endometriosis involving the tip of the appendix. One pericolonic lymph node positive for metastatic well-differentiated neuroendocrine tumor (carcinoid tumor). Small bowel donuts x2, no pathologic diagnosis. See comment. B. Mesenteric lymph node, biopsy: One lymph node positive for metastatic well-differentiated neuroendocrine tumor (carcinoid tumor). See comment. C. Small bowel, segmental resection: Well-differentiated neuroendocrine tumor, G1 (carcinoid tumor) x2 foci. Small tumor deposits x3. Please see cancer summary in the comment section. SJ:tay 04/27/2021 COMMENT A. The metastatic focus measures 0.5 cm in greatest dimension. Extranodal extension is not seen. B. The metastatic focus measures 0.9 cm in greatest dimension. The metastatic tumor almost completely involves the lymph node. Evaluation of extranodal extension is not possible as complete capsule is not seen around the lymph node. C. The largest tumor deposits measures 0.5 cm in greatest dimension. Immunohistochemistry ([id number]) supports the diagnosis of well differentiated neuroendocrine tumor (carcinoid tumor). NEUROENDOCRINE TUMOR CANCER SUMMARY Procedure ? segmental resection, small intestine Tumor site ? ileum Histologic type ? G1, well-differentiated neuroendocrine tumor (carcinoid tumor) Histologic grade determination: Mitotic rate ? less than 1 mitosis per high power field. Ki-67 labeling index ? less than 1% Tumor size ? larger tumor - 2 x 1.5 x 1 cm Smaller tumor ? 0.5 cm in diameter Tumor focality ? multifocal Number of tumors ? 2 Tumor extent ? tumor invades through muscularis propria into the subserosal tissue without penetration of overlying serosa. Lymphovascular invasion - present Perineural invasion ? not identified Large mesenteric masses (greater than 2 cm) ? not identified Margins ? the tumor is present at the one axial resection margin. Regional lymph nodes: Number of lymph nodes with tumor ? 2 Number of lymph nodes examined ? 2 The metastatic focus measures 0.9 cm in greatest dimension (specimen B) and 0.5 cm in greatest dimension (specimen A). Distant metastasis ? not applicable Additional pathologic findings ? focal tumor calcifications. - Mesenteric tumor deposit ? x3 (largest measures 0.5 cm in greatest dimension) PATHOLOGIC STAGE ? pT3(m) pN1 pMx The above summary is in compliance with [employer] [place] [employer] (CAP) Cancer Protocols Checklist and [place] [employer] Committee on Cancer (AJCC), Staging Manual, 8th Ed. The results are reported to Dr. Matt?s office on 04/27/21. Case has been reviewed in consultation with Dr. Barrett who concurs with the above diagnosis. IDC:AM MICROSCOPIC DESCRIPTION Slides are reviewed. GROSS DESCRIPTION A - Received in fixative is one container labeled with the patient's name and designated right colon. The specimen consists of a right hemicolectomy specimen consisting of cecum with ascending colon, segment of small bowel with attached pericolonic adipose tissue and appendix. The portion of ascending colon is markedly dilated. The cecum with ascending colon measures 39 cm in length and 3-10 cm in diameter. Segment of small bowel measures 15 cm in length and appendix measures 3.5 cm in length and 0.2-0.7 cm in diameter. The appendix is at the tip measures 0.7 cm in diameter. Both resection margins are stapled. The lumen is filled with liquefied fecal material. Most of the large intestine mucosa is congested and dusky. No mucosal lesion is noted in the small and large bowel. Sections of the appendix reveal an ill-defined harrington, solid area at the tip of the appendix. The pericolonic adipose tissue is fixed in lymph node-revealing solution. Also present in container are two donut-shaped pieces of bowel tissue measuring 3.5 x 3 x 1 cm and 3.5 x 2 x 1 cm. More sections will be submitted after fixation. / : 04/22/21 Sections of pericolonic adipose tissue reveal one lymph node measuring 1 cm in greatest dimension. Paintings Conservator sections are submitted as follows: 1 & 2 - donut shape pieces of bowel 3 - proximal and distal resection margins, 4 - appendix, entirely submitted, 5 & 6 large bowel, congested and dusky mucosa, 7 - small bowel, 8 - ileocecal valve, 9 - large bowel, 10??one serially sectioned lymph node, 11?& 12 - multiple possible lymph nodes. / : 04/23/21 More sections are submitted in one more cassette, 13 - possible lymph node tissue. / : 04/26/21 B - Received in fixative is one container labeled with the patient's name and designated mesenteric lymph node. The specimen consists of a piece of harrington nodule measuring 1 x 1 x 0.5 cm. The specimen is bisected and submitted entirely in one cassette. / : 04/22/21 C - Received in fixative is one container labeled with the patient's name and designated small bowel segment. The specimen consists of a segment of small bowel measuring 5.5 cm in length and up to 2.5 cm in diameter. Mesenteric tissue measures up to 1.5 cm in width. Both resection margins are stapled. Focal serosal adhesions are noted in the central portion of the bowel. A harrington-yellow solid nodular mass is noted underneath the serosal adhesion area measuring 2 x 1.5 x 1 cm. This lesion is 1 cm away from one resection margin and 3 cm away from the opposite resection margin The serosal surface at the area of adhesion is inked black. More dictation will follow after fixation. / SJ:tay 04/22/21 The tumor is completely obstructing the lumen. No obviously enlarged lymph nodes are identified in the mesenteric tissue. Paintings Conserv[employer] sections are submitted in ten cassettes as follows: 1 - resection margins, 2-7 - entire tumor, 8 - uninvolved portion of the bowel wall, 9?& 10 - mesenteric tissue. / SJ:tay 04/23/21 More sections are submitted in two more cassettes, 11 & 12 - mesenteric tissue. / SJ:tay 04/26/21 TC:0 CPT: 25450 x2, [id number]
--- NOTE | 2021-04-21 21:22 | OP.PCM_ITS ---
Problems Associated Problem List Diagnoses (1) Cecal volvulus: Report of Operation Date of Procedure: 04/21/21 Pre-Operative Diagnosis: Cecal volvulus Post-Operative Diagnosis: Volvulus with mass of the mesentery and small bowel mass Surgery/Procedure Performed:: 1. Exploratory laparotomy with right hemicolectomy and primary anastomosis 2. Small bowel resection with anastomosis 3. Biopsy of mesenteric lymph node Specimen's removed: 1. Right hemicolon 2. Small bowel segment 3. Small bowel mesenteric lymph node Description of Procedure: Patient was brought to the operating room and general anesthesia was induced. The abdomen was prepped and draped in usual sterile fashion. A midline incision was made and deepened to the fascia which was kurt vated and incised into the peritoneum was reached. The fluid was suctioned from the abdomen and a finger was placed into the abdomen and following this finger the fascia was opened inferiorly and superiorly the length of the incision. Wound protector was placed in the abdomen. There was a necrotic colon on the right side which was delivered through the incision. The terminal ileum proximal to this was divided using a KYLE stapler. The impact LigaSure was used to take down the mesentery until the twist in the mesentery was reached. A clamp was placed across this and then the bowel was untwisted and LigaSure was used to take this down. Once the transverse colon was reached a 75 KYLE stapler was used to divide the transverse colon. The specimen was then sent and the pedicle for the right colon was suture-ligated using 0 silk suture. There is good hemostasis. There appeared to be a mass in the mesentery of the distal small bowel that extended along the SMA to the aorta. This was firm and appeared malignant. It was also noted that there was a small bowel segment with a mass that was nearly obstructed. The small bowel segment was resected using KYLE staplers and impact LigaSure. This was also sent for pathology. There was enlarged lymph nodes in the small bowel mesentery and 1 of these was selected and removed using electrocautery and sent for pathology. I was unable to remove the large mass as it had pulsatile flow to the small bowel running through it and it extended all the way to the SMA. This would not be able to be resected and keep the small bowel. The small bowel was anastomosed to itself at the area of the small bowel resection. KYLE staplers were used to make the small bowel anastomosis and a TX 60 was used to close the enterostomy after checking the staple line. A crotch suture was placed. Hemostasis was good. The mesenteric defect was closed with 3-0 Vicryl suture. Next the ileal colic anastomosis was fashioned in the same way. A KYLE stapler was used to anastomose the distal ileum to the transverse colon at the tenia located inferiorly. The staple line was inspected and then a TX 60 was used to close the enterostomy. 3-0 Vicryl was used to close this mesenteric defect. The abdomen was inspected for metastatic disease. The liver appeared normal and was palpated and felt normal. There was no peritoneal studding or signs of metastatic disease in the other parts of the abdomen. The bowel was returned to the abdomen and the omentum was draped over the small bowel and it was left in anatomic position. The abdomen was irrigated and suctioned dry. Gown and gloves were changed and the wound protector was removed. The fascia was closed from superiorly and inferiorly meeting in the middle using #1 PDS suture in a running fashion. The subcutaneous tissue was irrigated and suctioned dry and local anesthetic was used of the incision. The skin was closed with interrupted 4-0 Monocryl sutures and Steri-Strips. A bandage was applied the patient was awoken and taken to PACU in stable condition. Admit VTE Documentation VTE Mechan Device Prophylaxis: SCD's
--- NOTE | 2021-04-21 21:40 | CON.PCM.HO_ITS ---
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 * management as per general surgery * pain management as per general surgery * #Hypertensive urgency * BP was up in the 200s systolic, and was down to 193/110 at time of review * has no history of high blood pressure and says her BP is usually normal * elevation in BP may also be due to patient's significant pain from volvulus * will give PO clonidine 0.3mg x1 * start patient on amlodipine 10mg daily. * order 2D echo * trend BP and adjust meds as needed * IV hydralazine 10mg every 6 hours as needed for BP>160/110 * #History of anxiety: on xanax 0.25mg tid prn DVT prophylaxis: as per primary Thank you for the courtesy of the consult. Please do not hesitate to contact the hospitalist team with any questions or concerns. HPI Consult Data Date of Consult: 04/21/21 HPI Narrative HPI Narrative: JEFFERY GARCIA, is a 66 F with a PMH as outlined who was admitted via the ED on 04/21/2021 with a complaint of abdominal pain which have been on and off for the last few months. However abdominal pain became more persistent the day before admission and was not getting any better. It was mainly in the right side of her abdomen. Review of systems otherwise negative. 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 General surgery was consulted and patient had emergent surgery on 04/21/2021. Hospitalist service was consulted for medical management on account of markedly elevated blo od pressure. Patient blood pressure had been in the 200s systolic at the time that were consulted and at the time of my review, blood pressure was 193/103. Patient denied any headache, blurred vision, chest pain, shortness of breath or any swelling in her lower extremities. He does complain of abdominal pain due to the surgery but review of systems otherwise negative. She denies any history of high blood pressure and denies any family history of high blood pressure. She denies ever taking medication for high blood pressure and states that her blood pressure is usually normal. She could however not give me any figures to clarify what she meant by normal. EKG done on admission showed no acute ST changes and showed no evidence of LVH. She was given a dose of p.o. clonidine 0.3x1 and hospitalist service will monitor for poorly controlled hypertension. [facility] Medical History (Updated 04/21/21 @ 21:[address] Annette Shaffer MD) Anxiety Arthritis Depression IBS (irritable bowel syndrome) Osteopenia Home Medications alprazolam 0.25 mg tablet 0.25 mg PO TID PRN #90 tab 01/19/21 [Rx Last Taken 04/21/21] acetaminophen [Tylenol Extra Strength] 1,000 mg PO Q6H PRN 04/21/21 [History Last Taken 04/21/21 11:00] hydrocodone 10 mg-acetaminophen 325 mg tablet 1 tab PO Q6H PRN 4 Days #20 tab 04/21/21 [Rx Last Taken Unknown] paroxetine HCl [Paxil] 20 mg PO DAILY 04/21/21 [History Last Taken 04/21/21] Allergy/AdvReac Type Severity Reaction Status Date / Time ibuprofen [From Advil] Allergy Intermediate stomach Verified 04/21/21 14:56 problems Family History Mother Breast cancer Father Cancer Surgical History History of colonoscopy History of partial hysterectomy Social History Smoking Status: Current every day smoker tobacco type: cigarettes alcohol intake: current alcohol intake frequency: holidays/special occasions only Alcohol type: wine substance use type: does not use what type of physical activity do you participate in: walking and bicycling ROS Constitutional Constitutional: Reports malaise and weakness; Denies anorexia, chills, fatigue, fever(s) or night sweats Eyes Eyes: Denies blurry vision or double vision ENT HEENT: Denies dysphagia, headache(s) or nasal congestion Cardiovascular Cardiovascular: Denies chest pain, dyspnea on exertion, edema, lightheadedness, palpitations, paroxysmal nocturnal dyspnea or rapid heart rate Respiratory/Chest Respiratory/Chest: Reports hemoptysis; Denies cough, shortness of breath at rest or shortness of breath with exertion Gastrointestinal Gastrointestinal: Reports abdominal pain; Denies constipation, diarrhea, hemat emesis, hematochezia, nausea or vomiting Genitourinary Genitourinary: Denies burning urination or dysuria Musculoskeletal Musculoskeletal: Denies arthralgias or back pain Neurologic Neurologic: Denies confusion, dizziness, focal weakness, seizures or syncope Psychiatric Psychiatric: Denies anxiety Endocrine Endocrinology: Denies change in body appearance Hematologic/Lymphatic Hematologic/Lymphatic: Denies anemia Physical Exam Const alert and oriented x3 Constitutional Narrative: restless HEENT normocephalic, head/scalp atraumatic and hearing grossly normal bilaterally Mouth: dry mucous membranes Eyes PERRL, EOMs intact bilaterally and conjunctivae normal Neck no lymphadenopathy Resp normal respiratory effort, no retractions, no use of accessory muscles and clear to auscultation bilaterally Cardio regular rate, regular rhythm, S1 normal heart sound, S2 normal heart sound and no murmurs GI normal to inspection, nondistended, normoactive bowel sounds, soft to palpation, non-tender and non-distended GI Narrative: has intact surgical dressing in place Extremity normal to inspection, full ROM and no clubbing, cyanosis or edema Skin no rashes or lesions noted and no wounds Neuro oriented x3 Sensorium / Orientation: awake and alert Psych Psych Narrative: anxious Lab / Micro Data Result Diagrams: 04/21/21 16:20 04/21/21 16:20 Labs: Laboratory Results - last 24 hr 04/21/21 16:20: WBC 13.9 H, RBC 5.46 H, Hgb 16.8 H, Hct 50.6 H, MCV 92.7, MCH 30.8, MCHC 33.2, RDW Std Deviation 44.9 H, RDW Coeff of [place]ece 13.2, Plt Count 228, MPV 9.2, Immature Gran % (Auto) 0.300, Neut % (Auto) 76.9 H, Lymph % (Auto) 15.0 L, [place] % (Auto) 7.2, Eos % (Auto) 0.2, Baso % (Auto) 0.4, Absolute Neuts (auto) 10.7 H, Absolute Lymphs (auto) 2.09, Nucleated RBC % 0 04/21/21 16:20: Sodium 134 L, Potassium 3.8, Chloride 101, Carbon Dioxide 25.0, Anion Gap 8, BUN 13, Creatinine 0.69, Estim Creat Clear Calc 43.07, Est GFR (MDRD) Af Amer 109, Est GFR (MDRD) Non-Af 90, BUN/Creatinine Ratio 18.7, Glucose 135 H, Calcium 9.3, Total Bilirubin 0.60, AST 16, ALT 26, Alkaline Phosphatase 104, Total Protein 8.1, Albumin 4.2, Globulin 3.9, Albumin/Globulin Ratio 1.1 04/21/21 17:12: Urine Color Yellow, Urine Clarity Clear, Urine pH 6.0, Ur Specific [place] 1.020, Urine Protein 100 H, Urine Glucose (UA) Normal, Urine Ketones 50 H, Urine Occult Blood 150 H, Urine Nitrite Negative, Urine Bilirubin Negative, Urine Urobilinogen Normal, Ur Leukocyte Esterase Negative, Urine RBC 10-25 SEEN, Urine WBC 0 SEEN, Ur Squamous Epith Cells 0 SEEN, Urine Bacteria 1+, Urine Mucus 1+ Micro: Microbiology 04/21/21 18:30 Interface Orders SARS-CoV-2 Antigen (Rapid) - Final Radiology Impression Abdomen/Pelvis CT 04/21/21 17:20 IMPRESSION: 1. 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 2. Secondary mild to moderate free fluid. Electronically Signed: Nicholas Cardenas MD at 17:48 EDT , Service support , Charges/Coding Visit Charges Office Visits / Consults: [id number] IP Consult L5
[2021-04-21] MEDS: 0.9% Normal Saline 1,000 ML 100 ML IV (22:51)
[2021-04-21] MEDS: Clonidine HCl 0.1 MG, Clonidine HCl 0.2 MG 0.3 MG PO (22:52)
[2021-04-21] MEDS: 0.9% Saline Lock 10 ML Syringe IV ×2 (22:52→23:11)
[2021-04-21] MEDS: amLODIPine 10 MG Tablet PO (22:52)
[2021-04-21] MEDS: Ketorolac 15 MG/ML Vial IV (23:11)
[2021-04-22] VITALS (16 sets, daily range): BP systolic 85–149; BP diastolic 57–90; PULSE 57–82; RESP 16–18; TEMP 36.5–37.3; O2SAT 92–97
[2021-04-22 05:34] LABS: Absolute Lymphocyte Count 1.91 X10^3/uL (0.83-4.51); Absolute Neutrophil Count 6.1 X10^3/uL (2.0-7.7); Basophil# 0.03 X10^3/uL; Basophil% 0.3 % (0-1); Eosinophil# 0.02 X10^3/uL; Eosinophils% 0.2 % (0-5); Hematocrit 41.1 % (37-47); Hemoglobin 13.2 g/dL (12.0-15.0); Lymphocyte # 1.91 X10^3/ul (0.83-4.51); Lymphocyte % 21.3 % (19-41); Mean Corp Hgb Conc 32.1 g/dL (32-36); Mean Corpuscular Hgb 30.6 pg (27.0-32.0); Mean Corpuscular Volume 95.4 fL (81-99); Mean Platelet Vol. 8.9 fl (6.2-12.0); Monocyte# 0.88 X10^3/uL; Monocyte% 9.8 % (0-10); NRBC Flagged by Analyzer 0 % (0-5); Neutrophil # 6.07 X10^3/uL (2.7-7.7); Platelet Count 164 K/mm3 (150-450); RBC Distribution Width CV 13.3 % (11.6-14.6); RBC Distribution Width SD 47.3 fl (35.1-43.9); Red Blood Count 4.31 M/mm3 (4.2-5.4)
[2021-04-22 06:30] LABS: Anion Gap 4 (5-15); BUN 13 mg/dL (7-18); BUN/Creat Ratio 20.3 RATIO (10-20); Calcium,Total 7.9 mg/dL (8.5-10.1); Chloride 107 mmol/L (98-107); Creatinine, Serum 0.64 mg/dL (0.55-1.02); EST Glomerular Filtration Rate 99 mL/min (>60); Est Glom Filt Rate - Afr Amer 120 mL/min (>60); Estimated Creatinine Clearance 42.89 ml/min; Glucose 92 mg/dL (74-106); Sodium Level 138 mmol/L (136-145)
--- NOTE | 2021-04-22 08:01 | PCM.PN.SRG ---
Subjective Subjective The patient is not passing any flatus yet. No nausea or vomiting. Abdominal pain is well controlled. Objective Data Objective Data Vital Signs: Vital Signs Temp Pulse Resp BP Pulse Ox 98.2 F 82 16 119/75 97 04/22/21 05:31 04/22/21 07:28 04/22/21 05:31 04/22/21 05:31 04/22/21 05:31 Oxygen Flow Rate (L/min) 2 Oxygen Delivery Method Room Air Weight: 108 lb 3.951 oz Body Mass Index (BMI) 19.1 Intake & Output: Intake and Output for Last 24 Hours 04/20/21 04/21/21 04/22/21 23:59 23:59 23:59 Intake Total 1200 / 1200 100 / 100 Output Total 100 / 100 Balance 1200 / 1200 0 / 0 Lab / Micro Data Result Diagrams: 04/22/21 05:12 04/22/21 05:12 Labs: Laboratory Results - last 24 hr 04/21/21 16:20: WBC 13.9 H, RBC 5.46 H, Hgb 16.8 H, Hct 50.6 H, MCV 92.7, MCH 30.8, MCHC 33.2, RDW Std Deviation 44.9 H, RDW Coeff of [place] 13.2, Plt Count 228, MPV 9.2, Immature Gran % (Auto) 0.300, Neut % (Auto) 76.9 H, Lymph % (Auto) 15.0 L, [place] % (Auto) 7.2, Eos % (Auto) 0.2, Baso % (Auto) 0.4, Absolute Neuts (auto) 10.7 H, Absolute Lymphs (auto) 2.09, Nucleated RBC % 0 04/21/21 16:20: Sodium 134 L, Potassium 3.8, Chloride 101, Carbon Dioxide 25.0, Anion Gap 8, BUN 13, Creatinine 0.69, Estim Creat Clear Calc 43.07, Est GFR (MDRD) Af Amer 109, Est GFR (MDRD) Non-Af 90, BUN/Creatinine Ratio 18.7, Glucose 135 H, Calcium 9.3, Total Bilirubin 0.60, AST 16, ALT 26, Alkaline Phosphatase 104, Total Protein 8.1, Albumin 4.2, Globulin 3.9, Albumin/Globulin Ratio 1.1 04/21/21 17:12: Urine Color Yellow, Urine Clarity Clear, Urine pH 6.0, Ur Specific [place] 1.020, Urine Protein 100 H, Urine Glucose (UA) Normal, Urine Ketones 50 H, Urine Occult Blood 150 H, Urine Nitrite Negative, Urine Bilirubin Negative, Urine Urobilinogen Normal, Ur Leukocyte Esterase Negative, Urine RBC 10-25 SEEN, Urine WBC 0 SEEN, Ur Squamous Epith Cells 0 SEEN, Urine Bacteria 1+, Urine Mucus 1+ 04/22/21 05:12: WBC 9.0, RBC 4.31, Hgb 13.2, Hct 41.1, MCV 95.4, MCH 30.6, MCHC 32.1, RDW Std Deviation 47.3 H, RDW Coeff of [place]ece 13.3, Plt Count 164, MPV 8.9, Immature Gran % (Auto) 0.400, Neut % (Auto) 68.0, Lymph % (Auto) 21.3, [place] % (Auto) 9.8, Eos % (Auto) 0.2, Baso % (Auto) 0.3, Absolute Neuts (auto) 6.1, Absolute Lymphs (auto) 1.91, Nucleated RBC % 0 04/22/21 05:12: Sodium 138, Potassium 4.0, Chloride 107, Carbon Dioxide 27.0, Anion Gap 4 L, BUN 13, Creatinine 0.64, Estim Creat Clear Calc 42.89, Est GFR (MDRD) Af Amer 120, Est GFR (MDRD) Non-Af 99, BUN/Creatinine Ratio 20.3 H, Glucose 92, Calcium 7.9 L Micro: Microbiology 04/21/21 18:30 Interface Orders SARS-CoV-2 Antigen (Rapid) - Final Radiography Diagnostic Testing: Radiology Impression Abdomen/Pelvis CT 04/21/21 17:20 IMPRESSION: 1. 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 2. Secondary mild to moderate free fluid. Electronically Signed: Nicholas Cardenas MD at 17:48 EDT , Service support , Physical Exam Const oriented x3 and no apparent distress Resp normal respiratory effort Cardio regular rate GI soft to palpation Palpation: tender Extremity normal to inspection Assessment & Plan Assessment/Plan (1) Bowel obstruction: QUALIFIERS: Intestinal obstruction type: volvulus Qualified Code(s): K56.2 - Volvulus (2) Cecal volvulus: PLAN: The patient had a mass in the proximal mesentery and this was the point of torsion for the cecal volvulus. The right colon was resected but the mass was unresectable as it did extend all the way to the aorta. There was another small bowel segment that was resected that had a mass and a mesenteric lymph node biopsy was performed. Currently the patient has not passed any flatus yet. I will reassess this afternoon or possibly start clear liquid diet. I have ordered a PPI and Lovenox. Hospitalist group is on board for medical management especially of her hypertension. Gilberto Matt MD Pager: [facility] [address] [place] [address], [address] [place] [address] Office:
[2021-04-22] MEDS: Enoxaparin 40 MG/0.4 ML Syringe SC (09:04)
[2021-04-22] MEDS: Ketorolac 15 MG/ML Vial IV ×2 (09:04→19:56)
[2021-04-22] MEDS: Pantoprazole Sodium 40 MG Tablet PO (09:04)
[2021-04-22] MEDS: 0.9% Normal Saline 1,000 ML 100 ML IV ×2 (09:10→18:08)
[2021-04-22] MEDS: Paroxetine 20 MG Tablet PO (09:17)
[2021-04-22] MEDS: ALPRAZolam 0.25 MG Tablet PO (10:33)
[2021-04-22] MEDS: BENZOCAINE/MENTHOL 1 LOZENGE MUCOUS MEM ×2 (10:33→16:50)
--- NOTE | 2021-04-22 11:20 | CASEMGMT ---
RN CM Face to Face with patient for initial transition planning/care coordination assessment. RN CM introduced self and role at [facility]. Patient lying in bed, alert and oriented. Patient willing to participate in assessment and is able to answer all questions appropriately. Care providers, pharmacy, and demographics verified. Patient wishes to discharge home, denies need for home health at this time. Patient states she has no further needs or concerns at this time. CM to follow for discharge planning needs that may arise. PCP: Demarco Epstein Specialists: none Preferred Pharmacy: [facility] Insurance: [facility] Prescription Benefit: yes, Express Living Will/HPOA: none LNOK: , daughter Living Arrangements: Patient lives with in a single story home with no steps to enter the home. Patient states she is independent at home. Transportation: self/ DME/HHC: Patient denies DME or previous HHC. Patient smokes 1/2 PPD of cigarettes and has information regarding Tobacco Cessation Program at [facility] Disposition Plan: Patient to discharge home with family support and follow-up plans in place. Qian WYNN, RN, CM
--- NOTE | 2021-04-22 13:02 | PN.HOSP_ITS ---
Documented by User: Fe Oliva LICENSED VOCATIONAL NURSE, LICENSED VOCATIONAL NURSE-C 04/22/21 13:19 Subjective Subjective Patient seen and examined. Reports increased abdominal discomfort following ambulation this morning. No bowel movement, not passing flatus. Denies nausea, vomiting. Complains of scratchy/sore throat following surgery. Objective Data Objective Data Vital Signs: Vital Signs Temp Pulse Resp BP Pulse Ox 98.4 F 82 18 149/90 H 94 04/22/21 09:15 04/22/21 07:28 04/22/21 09:15 04/22/21 09:15 04/22/21 09:15 Oxygen Flow Rate (L/min) 2 Oxygen Delivery Method Room Air Weight: 108 lb 3.951 oz Body Mass Index (BMI) 19.1 Intake & Output: Intake and Output for Last 24 Hours 04/20/21 04/21/21 04/22/21 23:59 23:59 23:59 Intake Total 1200 / 1200 1300 / 1300 Output Total 400 / 400 Balance 1200 / 1200 900 / 900 Lab / Micro Data Result Diagrams: 04/22/21 05:12 04/22/21 05:12 Labs: Laboratory Results - last 24 hr 04/21/21 16:20: WBC 13.9 H, RBC 5.46 H, Hgb 16.8 H, Hct 50.6 H, MCV 92.7, MCH 30.8, MCHC 33.2, RDW Std Deviation 44.9 H, RDW Coeff of Reece 13.2, Plt Count 228, MPV 9.2, Immature Gran % (Auto) 0.300, Neut % (Auto) 76.9 H, Lymph % (Auto) 15.0 L, [place] % (Auto) 7.2, Eos % (Auto) 0.2, Baso % (Auto) 0.4, Absolute Neuts (auto) 10.7 H, Absolute Lymphs (auto) 2.09, Nucleated RBC % 0 04/21/21 16:20: Sodium 134 L, Potassium 3.8, Chloride 101, Carbon Dioxide 25.0, Anion Gap 8, BUN 13, Creatinine 0.69, Estim Creat Clear Calc 43.07, Est GFR (MDRD) Af Amer 109, Est GFR (MDRD) Non-Af 90, BUN/Creatinine Ratio 18.7, Glucose 135 H, Calcium 9.3, Total Bilirubin 0.60, AST 16, ALT 26, Alkaline Phosphatase 104, Total Protein 8.1, Albumin 4.2, Globulin 3.9, Albumin/Globulin Ratio 1.1 04/21/21 17:12: Urine Color Yellow, Urine Clarity Clear, Urine pH 6.0, Ur Specific [place] 1.020, Urine Protein 100 H, Urine Glucose (UA) Normal, Urine Ketones 50 H, Urine Occult Blood 150 H, Urine Nitrite Negative, Urine Bilirubin Negative, Urine Urobilinogen Normal, Ur Leukocyte Esterase Negative, Urine RBC 10-25 SEEN, Urine WBC 0 SEEN, Ur Squamous Epith Cells 0 SEEN, Urine Bacteria 1+, Urine Mucus 1+ 04/22/21 05:12: WBC 9.0, RBC 4.31, Hgb 13.2, Hct 41.1, MCV 95.4, MCH 30.6, MCHC 32.1, RDW Std Deviation 47.3 H, RDW Coeff of Reece 13.3, Plt Count 164, MPV 8.9, Immature Gran % (Auto) 0.400, Neut % (Auto) 68.0, Lymph % (Auto) 21.3, [place] % (Auto) 9.8, Eos % (Auto) 0.2, Baso % (Auto) 0.3, Absolute Neuts (auto) 6.1, Absolute Lymphs (auto) 1.91, Nucleated RBC % 0 04/22/21 05:12: Sodium 138, Potassium 4.0, Chloride 107, Carbon Dioxide 27.0, Anion Gap 4 L, BUN 13, Creatinine 0.64, Estim Creat Clear Calc 42.89, Est GFR (MDRD) Af Amer 120, Est GFR (MDRD) Non-Af 99, BUN/Creatinine Ratio 20.3 H, Glucose 92, Calcium 7.9 L Micro: Microbiology 04/21/21 18:30 Interface Orders SARS-CoV-2 Antigen (Rapid) - Final Radiography Diagnostic Testing: Radiology Impression Abdomen/Pelvis CT 04/21/21 17:20 IMPRESSION: 1. 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 2. Secondary mild to moderate free fluid. Electronically Signed: Nicholas Cardenas MD at 17:48 EDT , Service support , Physical Exam Const alert, oriented x3 and no apparent distress Orientation / Consciousness: awake, oriented to person, oriented to place and oriented to time HEENT normocephalic and moist oral mucous membranes Eyes PERRL, EOMs intact bilaterally and conjunctivae normal Neck no lymphadenopathy Resp normal respiratory effort and clear to auscultation bilaterally Cardio regular rate, regular rhythm and no murmurs Peripheral Pulses: pulses 2+ throughout GI normal to inspection, nondistended, normoactive bowel sounds and non-distended Auscultation: hypoactive bowel sounds Palpation: tender Extremity normal to inspection Skin no rashes or lesions noted Lesions: no lesions Rashes: no rashes Trauma: no lacerations or abrasions Neuro CN's II-XII intact bilaterally, no focal motor deficits, no sensory deficits noted and deep tendon reflexes 2+ bilaterally Psych mental status grossly normal and affect normal Assessment & Plan Assessment/Plan (1) Bowel obstruction: QUALIFIERS: Intestinal obstruction type: volvulus Qualified Code(s): K56.2 - Volvulus PLAN: 1. Cecal volvulus/bowel obstruction- general surgery primary. Patient found to have mass in the proximal mesentery. Underwent exploratory laparotomy with right hemicolectomy and primary anastomosis with small bowel resection and biopsy of mesenteric lymph node. Mass was not able to be resected and it extended all the way to the aorta. Management per surgery. Remains n.p.o. pending return of bowel function. On PPI. 2. Hypertensive urgency-now stable. Continue amlodipine 10 mg daily. As needed hydralazine. Echo ordered. Suspect acutely elevated blood pressure secondary to #1. 3. Anxiety/Depression-continue as needed Xanax regimen. On paroxetine. DVT prophylaxis- Lovenox ma This patient was seen by ALIN Mccarty under the supervision of Dr. Parr. Documented by User: Dr. Aidan Parr DO 04/22/21 19:38 Objective Data Lab / Micro Data Result Diagrams: 04/22/21 05:12 04/22/21 05:12 Charges/Coding Addendum Addendum: Patient was seen and examined today independently of Fe Oliva, she has no complaints of any shortness of breath, fevers, or chills. She is not nauseated, abdomen does not appear distended. On examination she appeared older than her stated age, she does not appear to be in any distress. Vital signs as documented. Skin warm and dry and without overt rashes. Neck without JVD, thyroid appears normal, trachea is midline, neck is supple. Lungs clear, normal air movement was noted. Heart exam notable for regular rhythm, normal sounds and absence of murmurs, rubs or gallops. Abdomen unremarkable and without evidence of organomegaly, masses, or abdominal aortic enlargement, bowel sounds are decreased in all 4 quadrants, no abdominal tenderness was noted. Extremities nonedematous, no cyanosis was noted, no clubbing was noted. Neuro: Cranial nerves II through XII are grossly intact, no focal motor deficits were noted, sensation to light touch and pinprick is intact, motor exam 5/5 throughout. Psych: Patient is alert and oriented x3, she does not appear anxious or depressed, she does not appear agitated. I have reviewed Fe Oliva's progress note including her medical assessment and plan of care and endorse it. Visit Charges Inpatient E&M: 15553 Subs Hosp L2
--- NOTE | 2021-04-22 13:18 | ECHOD_ITS ---
Version 2 Reason For Study: HTN Procedure This was a 2D Doppler, Color Flow transthoracic echocardiogram. Exam performed portable in patient room. Left Ventricle Normal LV size. Left ventricular systolic function is normal. The estimated ejection fraction is 70 %. No regional wall motion abnormalities noted. Right Ventricle Normal RV size. Normal systolic function. Atria Normal left atrium. Normal right atrium. Mitral Valve Mild mitral valve prolapse. Mild (1+) eccentric mitral valve insufficiency. Tricuspid Valve Normal tricuspid valve. Mild (1+) tricuspid valve insufficiency. Pulmonary artery systolic pressure is 30 mmHg. Aortic Valve Normal aortic valve. Trisinus/trileaflet aortic valve. Pulmonic Valve Normal pulmonic valve. Great Vessels Normal aortic root. The pulmonary artery is normal size. Normal inferior vena cava. Pericardium/Pleural No pericardial effusion. MMode/2D Measurements & Calculations LVIDd: 3.7 cm IVSd: 0.84 cm Ao root diam: 3.4 cm LVIDs: 2.4 cm LVPWd: 0.81 cm RVDd: 3.4 cm FS: 33.8 % LAV(MOD-bp): 57.5 ml LA A4 area: 18.5 cm2 LA dimension(2D): 3.2 cm LAV(MOD-bp) Indexed: 38.7 ml/m2 LAV(MOD-sp2): 56.8 ml LAV(MOD-sp4): 50.8 ml RA A4 area: 13.2 cm2 Time Measurements MV dec time: 0.22 sec Doppler Measurements & Calculations MV E max reginald: 88.8 cm/sec Lat Peak E' Reginald: 9.9 cm/sec Med Peak E' Reginald: 6.5 cm/sec MV A max reginald: 55.9 cm/sec E/E' lat: 9.0 E/E' med: 13.6 MV E/A: 1.6 Ao V2 max: 210.3 cm/sec LV V1 max: 173.9 cm/sec PA V2 max: 84.3 cm/sec Ao max P.7 mmHg LV V1 max P.1 mmHg Ao V2 mean: 146.8 cm/sec LV V1 mean P.4 mmHg Ao mean P.5 mmHg LV V1 mean: 120.5 cm/sec Ao V2 VTI: 48.4 cm LV V1 VTI: 37.0 cm TR max reginald: 258.9 cm/sec TR max P.8 mmHg ECHO/Echo Complete Interpretation Summary Normal LV size. Left ventricular systolic function is normal. The estimated ejection fraction is 70 %. Mild mitral valve prolapse. Mild (1+) eccentric mitral valve insufficiency. Mild (1+) tricuspid valve insufficiency. The global longitudinal strain is normal. The global longitudinal strain = -23. 7 % (normal). Ordering Physician: Fe Oliva Referring Physician: JAYJAY BAE Performed By: Saige Collado, YANICS, RVT
[2021-04-23] VITALS (7 sets, daily range): BP systolic 135–157; BP diastolic 74–84; PULSE 64–87; RESP 16–18; TEMP 36.8–37.1; O2SAT 93–98
[2021-04-23] MEDS: 0.9% Normal Saline 1,000 ML 100 ML IV (04:07)
[2021-04-23] MEDS: Ketorolac 15 MG/ML Vial IV ×2 (05:27→21:36)
--- NOTE | 2021-04-23 07:55 | PN.SURG_ITS ---
Subjective Subjective Patient reports that she has passed flatus. She is not having any nausea or vomiting and her abdominal pain feels more crampy like she has flatus moving along. Objective Data Objective Data Vital Signs: Vital Signs Temp Pulse Resp BP Pulse Ox 98.3 F 64 18 135/74 H 93 04/23/21 02:20 04/23/21 03:00 04/23/21 02:20 04/23/21 02:20 04/23/21 02:20 Oxygen Flow Rate (L/min) 2 Oxygen Delivery Method Room Air Weight: 108 lb 3.951 oz Body Mass Index (BMI) 19.1 Intake & Output: Intake and Output for Last 24 Hours 04/21/21 04/22/21 04/23/21 23:59 23:59 23:59 Intake Total 1200 / 1200 2346.67 / 2346.67 1048.33 / 1048.33 Output Total 925 / 925 600 / 600 Balance 1200 / 1200 1421.67 / 1421.67 448.33 / 448.33 Lab / Micro Data Result Diagrams: 04/22/21 05:12 04/22/21 05:12 Micro: Microbiology 04/21/21 18:30 Interface Orders SARS-CoV-2 Antigen (Rapid) - Final Physical Exam Const oriented x3 and no apparent distress Resp normal respiratory effort Cardio regular rate and regular rhythm GI soft to palpation and non-tender Assessment & Plan Assessment/Plan (1) Cecal volvulus: (2) Small bowel mass: PLAN: Patient is passing some flatus this morning. Her abdominal pain is only crampy like she has gas moving along. Her incision is clean dry and intact and her pain is well controlled. I will start her on a clear liquid diet. The patient had a mass in the small bowel necessitating a small bowel resection and she had a mass in the base of the mesentery causing the cecal volvulus. 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 Her diet may be advanced tomorrow if she tolerates clears today and she may be ready for discharge by tomorrow. Gilberto Matt MD Pager: [facility] [address] [place] [address], [address] [place] [address] Office:
[2021-04-23] MEDS: Paroxetine 20 MG Tablet PO (09:24)
[2021-04-23] MEDS: Pantoprazole Sodium 40 MG Tablet PO (09:24)
[2021-04-23] MEDS: Enoxaparin 40 MG/0.4 ML Syringe SC (09:24)
--- NOTE | 2021-04-23 11:32 | PN.HOSP_ITS ---
Documented by User: Fe Oliva NP, OPERATIONS SYSTEMS SPECIALIST-C 04/23/21 11:41 Subjective Subjective Patient seen and examined. Abdominal pain improved, passing flatus. Tolerating clear liquids thus far. Denies other symptoms or complaints. Objective Data Objective Data Vital Signs: Vital Signs Temp Pulse Resp BP Pulse Ox 98.7 F 70 18 152/80 H 97 04/23/21 08:50 04/23/21 08:50 04/23/21 08:50 04/23/21 08:50 04/23/21 08:50 Oxygen Flow Rate (L/min) 2 Oxygen Delivery Method Room Air Weight: 108 lb 3.951 oz Body Mass Index (BMI) 19.1 Intake & Output: Intake and Output for Last 24 Hours 04/21/21 04/22/21 04/23/21 23:59 23:59 23:59 Intake Total 1200 / 1200 2346.67 / 2346.67 1048.33 / 1048.33 Output Total 925 / 925 600 / 600 Balance 1200 / 1200 1421.67 / 1421.67 448.33 / 448.33 Lab / Micro Data Result Diagrams: 04/22/21 05:12 04/22/21 05:12 Micro: Microbiology 04/21/21 18:30 Interface Orders SARS-CoV-2 Antigen (Rapid) - Final Physical Exam Const alert, oriented x3 and no apparent distress Orientation / Consciousness: awake, oriented to person, oriented to place and oriented to time HEENT normocephalic and moist oral mucous membranes Eyes PERRL, EOMs intact bilaterally and conjunctivae normal Neck no lymphadenopathy Resp normal respiratory effort and clear to auscultation bilaterally Cardio regular rate, regular rhythm and no murmurs Peripheral Pulses: pulses 2+ throughout GI normal to inspection, nondistended, normoactive bowel sounds and non-distended Palpation: tender other (Generalized postoperative tenderness) Extremity normal to inspection Skin no rashes or lesions noted Lesions: no lesions Rashes: no rashes Trauma: no lacerations or abrasions Neuro CN's II-XII intact bilaterally, no focal motor deficits, no sensory deficits noted and deep tendon reflexes 2+ bilaterally Psych mental status grossly normal and affect normal Assessment & Plan Assessment/Plan (1) Bowel obstruction: QUALIFIERS: Intestinal obstruction type: volvulus Qualified Code(s): K56.2 - Volvulus PLAN: 1. Cecal volvulus/bowel obstruction- general surgery primary. Patient found to have mass in the proximal mesentery. Underwent exploratory laparotomy with right hemicolectomy and primary anastomosis with small bowel resection and biopsy of mesenteric lymph node. Mass was not able to be resected and it extended all the way to the aorta. Management per surgery. On PPI. Initi ated on clear liquid diet which she is currently tolerating. Possible discharge 04/24/2021 if continued improvement. 2. Hypertensive urgency-now stable. Initially placed on scheduled amlodipine however subsequent blood pressures had been borderline low. Blood pressure continues to fluctuate mildly. As needed hydralazine. Suspect elevated blood pressure readings secondary to #1, pain and anxiety. Patient is hesitant to begin antihypertensive regimen. Echocardiogram demonstrates an EF of 70%, otherwise unremarkable. 3. Anxiety/Depression-continue as needed Xanax regimen. On paroxetine. DVT prophylaxis- Lovenox sc This patient was seen by ALIN Mccarty under the supervision of Dr. Parr. Documented by User: Dr. Aidan Parr DO 04/23/21 18:54 Objective Data Lab / Micro Data Result Diagrams: 04/22/21 05:12 04/22/21 05:12 Charges/Coding Addendum Addendum: Patient was seen and examined today independently of Fe Oliva, she has no complaints of any abdominal pain, shortness of breath, or chest pain. On examination she appeared in good health and spirits, she does not appear to be in any distress. Vital signs as documented. Skin warm and dry and without overt rashes. Neck without JVD, thyroid appears normal, trachea is midline, neck is supple. Lungs clear, normal air movement was noted. Heart exam notable for regular rhythm, normal sounds and absence of murmurs, rubs or gallops. Abdomen unremarkable and without evidence of organomegaly, masses, or abdominal aortic enlargement, bowel sounds are present in all 4 quadrants, no abdominal tenderness was noted. Extremities nonedematous, no cyanosis was noted, no clubbing was noted. Neuro: Cranial nerves II through XII are grossly intact, no focal motor deficits were noted, sensation to light touch and pinprick is intact, motor exam 5/5 throughout. Psych: Patient is alert and oriented x3, she does not appear anxious or depressed, she does not appear agitated. I have reviewed Fe Oliva's progress note including her medical assessment and plan of care and endorse it. Visit Charges Inpatient E&M: 58173 Subs Hosp L2
[2021-04-23] MEDS: Acetaminophen 325 MG Tablet 650 MG PO (18:10)
[2021-04-23] MEDS: 0.9% Saline Lock 10 ML Syringe IV (21:36)
[2021-04-24 02:50] VITALS: BP 169/93; PULSE 73; RESP 14; TEMP 36.7; O2SAT 96
--- NOTE | 2021-04-24 02:58 | NURSING ---
Patient had a moderate amount of sanguineous in top part of attends. Patient had small amount of drainage on dayshift patient has been walking more since surgery 3 days ago. Patient does has a clot that has formed at the proximal end of the incision. Denies any discomfort or pain and no hematoma noted at this time. Steri strips still intact to surgical incision area. Cleaned area applied a new 4x4 gauze dressing on incision with tape. Gave patient a pillow to use when getting out of bed pt demonstrate how to get out of bed using pillow for stomach protection. Pt stated, I can tell the different and it felt a lot better. Vital are documented. Call light within each.
[2021-04-24 03:00] VITALS: O2SAT 96
[2021-04-24 09:24] VITALS: BP 146/92; PULSE 87; RESP 18; TEMP 36.8; O2SAT 97
[2021-04-24] MEDS: Paroxetine 20 MG Tablet PO (09:26)
[2021-04-24] MEDS: Pantoprazole Sodium 40 MG Tablet PO (09:27)
[2021-04-24] MEDS: Enoxaparin 40 MG/0.4 ML Syringe SC (09:27)
[2021-04-24] MEDS: Acetaminophen 325 MG Tablet 650 MG PO (09:27)
--- NOTE | 2021-04-24 11:02 | PN.HOSP_ITS ---
Documented by User: Fe Oliva PERFUME COMPOUNDER, PERFUME COMPOUNDER-C 04/24/21 11:04 Subjective Subjective Patient seen and examined. Plan for discharge home per surgery. Discussed blood pressure monitoring at home. Objective Data Objective Data Vital Signs: Vital Signs Temp Pulse Resp BP Pulse Ox 98.3 F 87 18 146/92 H 97 04/24/21 09:24 04/24/21 09:24 04/24/21 09:24 04/24/21 09:24 04/24/21 09:24 Oxygen Flow Rate (L/min) 2 Oxygen Delivery Method Room Air Weight: 108 lb 3.951 oz Body Mass Index (BMI) 19.1 Intake & Output: Intake and Output for Last 24 Hours 04/22/21 04/23/21 04/24/21 23:59 23:59 23:59 Intake Total 2346.67 / 2346.67 3128.33 / 3128.33 120 / 120 Output Total 925 / 925 600 / 600 Balance 1421.67 / 1421.67 2528.33 / 2528.33 120 / 120 Lab / Micro Data Result Diagrams: 04/22/21 05:12 04/22/21 05:12 Micro: Microbiology 04/21/21 18:30 Interface Orders SARS-CoV-2 Antigen (Rapid) - Final Radiography Diagnostic Testing: Radiology Impression Echocardiogram 04/22/21 13:18 Interpretation Summary Normal LV size. Left ventricular systolic function is normal. The estimated ejection fraction is 70 %. Mild mitral valve prolapse. Mild (1+) eccentric mitral valve insufficiency. Mild (1+) tricuspid valve insufficiency. The global longitudinal strain is normal. The global longitudinal strain = -23.7 % (normal). Ordering Physician: Fe Oliva Referring Physician: JAYJAY BAE Performed By: Saige Collado, SNOW, RVT Physical Exam Const alert, oriented x3 and no apparent distress Orientation / Consciousness: awake, oriented to person, oriented to place and oriented to time HEENT normocephalic and moist oral mucous membranes Eyes PERRL, EOMs intact bilaterally and conjunctivae normal Neck no lymphadenopathy Resp normal respiratory effort and clear to auscultation bilaterally Cardio regular rate, regular rhythm and no murmurs Peripheral Pulses: pulses 2+ throughout GI normal to inspection, nondistended, normoactive bowel sounds, non-tender and non-distended GI Narrative: Postop site intact. Extremity normal to inspection Skin no rashes or lesions noted Lesions: no lesions Rashes: no rashes Trauma: no lacerations or abrasions Neuro CN's II-XII intact bilaterally, no focal motor deficits, no sensory deficits noted and deep tendon reflexes 2+ bilaterally Psych mental status grossly normal and affect normal Assessment & Plan Assessment/Plan (1) Bowel obstruction: QUALIFIERS: Intestinal obstruction type: volvulus Qualified Code(s): K56.2 - Volvulus PLAN: 1. Cecal volvulus/bowel obstruction- general surgery primary. Patient found to have mass in the proximal mesentery. Underwent exploratory laparotomy with right hemicolectomy and primary anastomosis with small bowel resection and biopsy of mesenteric lymph node. Mass was not able to be resected and it extended all the way to the aorta. Management per surgery. On PPI. Plan for discharge per surgery with outpatient follow-up. 2. Hypertensive urgency-now stable. Initially placed on scheduled amlodipine however subsequent blood pressures had been borderline low. Blood pressure con tinues to fluctuate mildly. Suspect elevated blood pressure readings secondary to #1, pain and anxiety. Patient is hesitant to begin antihypertensive regimen. Echocardiogram demonstrates an EF of 70%, otherwise unremarkable. Recommend daily blood pressure monitoring at home and record findings for further follow- up with PCP. If blood pressure remains above goal, will need initiation of blood pressure regimen. 3. Anxiety/Depression-continue as needed Xanax regimen. On paroxetine. DVT prophylaxis- Lovenox sc This patient was seen by ALIN Mccarty under the supervision of Dr. Holguin. Documented by User: Dr. Aidan Parr DO 04/24/21 13:03 Objective Data Lab / Micro Data Result Diagrams: 04/22/21 05:12 04/22/21 05:12 Charges/Coding Addendum Addendum: Patient was seen and examined independently of Fe Oliva today, she was released by general surgery to go home. Patient would rather not take any blood pressure medications until she talks with her outpatient family physician. On examination she appeared in good health and spirits, she does not appear to be in any distress. Vital signs as documented. Skin warm and dry and without overt rashes. Neck without JVD, thyroid appears normal, trachea is midline, neck is supple. Lungs clear, normal air movement was noted. Heart exam notable for regular rhythm, normal sounds and absence of murmurs, rubs or gallops. Abdomen unremarkable and without evidence of organomegaly, masses, or abdominal aortic enlargement, bowel sounds are present in all 4 quadrants, no abdominal tenderness was noted. Extremities nonedematous, no cyanosis was noted, no clubbing was noted. Neuro: Cranial nerves II through XII are grossly intact, no focal motor deficits were noted, sensation to light touch and pinprick is intact, motor exam 5/5 throughout. Psych: Patient is alert and oriented x3, she does not appear anxious or depressed, she does not appear agitated. Patient appears stable for discharge at this time, I have reviewed Fe Oliva's progress note including her medical assessment and plan of care and endorse it. Visit Charges Inpatient E&M: 22866 Subs Hosp L2
--- NOTE | 2021-04-24 11:09 | PCM.PN.BLA ---
Progress Note Patient doing well after surgery Tolerating liquids Passing flatus. abdomen is soft and benign - inferior incision with slight oozing, dressing changed and patient instructed to change dressing once a day and as per needed. Discharge to home
--- NOTE | 2021-04-24 11:10 | DCINST_ITS ---
Discharge Instructions Follow Up Care Test Results: Test results from this visit will be discussed in further detail at your follow-up appointment, if applicable. Discharge Plan Admission Admit Date/Time: 04/22/21 06:19 Attending Provider: Aidan Parr Primary Care Provider: Demarco Epstein Consulting Providers: Annette Shaffer Instructions Additional Instructions / Restrictions: Recommended pain control regimen - May take 600 mg ibuprofen (Motrin) and then in 3-4 hours, may take 650 mg acetaminophen (Tylenol), then in 3-4 hours may take 600 mg ibuprofen, then in 3- 4 hours may take 650 mg acetaminophen and so on for 2-3 days May take narcotic pain medication for pain that is not controlled by above and at night for comfort through the night Leave steristrips in place - may change lower incision site dressing once a day and more often if needed May shower, cover area of incision with towel to prevent area from getting wet. Do not soak - no tub baths/swimming No lifting/pushing/pulling greater than 10 pounds for at least a month (follow up with your surgeon for additional time period as needed). Follow up with Dr. Matt. Discharge Orders/Prescriptions Prescriptions: No Action acetaminophen [Tylenol Extra Strength] 500 mg Tablet 1,000 mg PO Q6H PRN (Reason: Pain) RF: 0 paroxetine HCl [Paxil] 20 mg tablet 20 mg PO DAILY RF: 0 alprazolam [Xanax] 0.25 mg tablet 0.25 mg PO TID PRN (Reason: anxiety) Qty: 90 RF: 1 hydrocodone-acetaminophen 10-325 mg tablet 1 tab PO Q6H PRN (Reason: pain) 4 Days Qty: 20 RF: 0 Referrals / Follow Up: Demarco Epstein DO [Primary Care Provider] - Disposition Discharge Orders: Discharge Patient (Routine); Ordered 04/24/21 Ordered By: Dr. Zeny Diallo
--- NOTE | 2021-04-30 06:43 | DS.PCM_ITS ---
Providers Date of Admission: 04/22/21 Primary Care Physician: Dr. Demarco Epstein, Consultations 04/21/21 21:42 Consult: Hospitalist Routine Consulting Provider: Annette Shaffer Reason for Consult: Medical managment, HTN EMERGENT Consult: No MD Notified: Yes Date Notified: 04/21/21 Time Notified: 21:42 Method of Notification: Verbal Reason For Visit: RIGHT HEMICOLECTOMY Diagnosis Discharge Diagnosis (1) Bowel obstruction: Status: Acute Code(s): K56.609 - Unspecified intestinal obstruction, unspecified as to partial versus complete obstruction Qualifiers: Intestinal obstruction type: volvulus Qualified Code(s): K56.2 - Volvulus Medications at Discharge Home Medications alprazolam 0.25 mg tablet 0.25 mg PO TID PRN #90 tab 01/19/21 acetaminophen [Tylenol Extra Strength] 1,000 mg PO Q6H PRN 04/21/21 paroxetine HCl [Paxil] 20 mg PO DAILY 04/21/21 Hospital Course Operations colectomy Procedures None Summary of Care Provided Hospital Course: Pt was admitted with severe abdominal pain. CT suggested cecal volvulus. She was taken to surgery and found to have cecal volvulus but also a mass in the mesentery and a small bowel mass. Small bowel mass was resected and mesenteric mass was biopsied as it was unresectable due to proximity to SMA. Pt was taken to floor postoperatively and once tolerating a diet she was discharged home. Weight / BMI Weight Weight: 108 lb 3.951 oz Body Mass Index (BMI) 19.1 ABG / Lab / Microbiology Data Result Diagrams: 04/22/21 05:12 04/22/21 05:12 Microbiology: Microbiology 04/21/21 18:30 Interface Orders SARS-CoV-2 Antigen (Rapid) - Final Meaningful Use Info Meaningful Use Diagnoses (Choose all that apply): None applicable Discharge Plan Admission Admit Date/Time: 04/22/21 06:19 Attending Provider: Aidan Parr Primary Care Provider: Demarco Epstein Consulting Providers: Annette Shaffer Instructions Additional Instructions / Restrictions: Patient Problems: Altered Health Status related to Hospitalization Patient Goals: *Optimal Level of Health *Keep Appointments *Medication Compliance *Remain SafeRecommended pain control regimen - May take 600 mg ibuprofen (Motrin) and then in 3-4 hours, may take 650 mg acetaminophen (Tylenol), then in 3-4 hours may take 600 mg ibuprofen, then in 3- 4 hours may take 650 mg acetaminophen and so on for 2-3 days May take narcotic pain medication for pain that is not controlled by above and at night for comfort through the night Leave steristrips in place - may change lower incision site dressing once a day and more often if needed May shower, cover area of incision with towel to prevent area from getting wet. Do not soak - no tub baths/swimming No lifting/pushing/pulling greater than 10 pounds for at least a month (follow u p with your surgeon for additional time period as needed). Follow up with Dr. Matt. Discharge Orders/Prescriptions Prescriptions: No Action acetaminophen [Tylenol Extra Strength] 500 mg Tablet 1,000 mg PO Q6H PRN (Reason: Pain) RF: 0 paroxetine HCl [Paxil] 20 mg tablet 20 mg PO DAILY RF: 0 alprazolam [Xanax] 0.25 mg tablet 0.25 mg PO TID PRN (Reason: anxiety) Qty: 90 RF: 1 Referrals / Follow Up: Demarco Epstein DO [Primary Care Provider] - Disposition Disposition (needs filled in before D/C Order can be placed): Home, Self Care
== END 2021-04-24 11:42 | disposition home or self-care (01) | DRG 329 ==
LOC: ED 17:32 → SDC 18:38 → AC 18:38 → SDC 19:04 → PCU 04-22 01:00
PROVIDERS: Emergency Medicine; Admitting Provider Surgery; Emergency Provider Emergency Medicine; PCP Family Medicine; Referring Provider Surgery; Visit Provider Internal Medicine
PROC: 0DTF0ZZ Resection of Right Large Intestine, Open Approach (ICD-10-PCS; principal; 2021-04-21 19:00)
DX: K56.2 Volvulus (principal); K55.049 Acute infarction of large intestine, extent unspecified; Z68.1 Body mass index [BMI] 19.9 or less, adult; C7B.8 Other secondary neuroendocrine tumors; C18.6 Malignant neoplasm of descending colon; R63.4 Abnormal weight loss; F41.9 Anxiety disorder, unspecified; F32.9 Major depressive disorder, single episode, unspecified; M19.90 Unspecified osteoarthritis, unspecified site; K58.9 Irritable bowel syndrome, unspecified; F17.210 Nicotine dependence, cigarettes, uncomplicated; I16.0 Hypertensive urgency; Z79.899 Other long term (current) drug therapy
CPT/HCPCS: 36415; 74177; 80048; 80053; 81001; 82150; 83690; 85025; 87426; 88305; 88307; 88309; 88341; 88342; 93005; 93306; 97802; 99251; 99284; J7030; Q9967; A4216; G0463; J2405

== ENCOUNTER → 2021-05-04 08:20 | Outpatient (CLI) | payer MEDICARE, SELFPAY ==
[2021-04-29 11:55] VITALS: BMI 18.4
--- NOTE | 2021-05-04 08:20 | CT_ITS ---
STUDY: CT CHEST WITH CONTRAST REASON FOR EXAM: Female, 66 years old. CARCINOID TUMOR OF ILEUM RADIATION DOSAGE (If Supplied By Facility): CTDIvol = ( 8.75 ) mGy, DLP = ( 154.73 ) mGycm TECHNIQUE: Transaxial imaging was performed following intravenous administration of IV 100mL Isovue-300. Multiplanar coronal and sagittal images were reformatted. Individualized dose optimization techniques were used for this CT. COMPARISON: None. FINDINGS: There is a 1 cm x 1 cm well-defined nodule in the anterior aspect of the right upper lobe. A metastatic deposit should be ruled out. Mild scarring at both lung apices. There is no demonstrated pleural abnormality. There are calcifications of the coronary arteries. Normal mediastinum. Normal hilar regions. Normal enhanced pulmonary arteries. Normal aorta arch and descending thoracic aorta. There is demineralization of the thoracic spine. There is no demonstrated abnormality of the visualized upper abdomen. CT/Chest WITH Contrast IMPRESSION: 1 cm x 1 cm well-defined nodule in the anterior aspect of the right upper lobe. A metastatic deposit should be ruled out. Electronically Signed: Fili Stone MD at 11:13 EDT , Service support ,
== END ==
PROVIDERS: PCP Family Medicine; Referring Provider Internal Medicine Medical Oncology; Visit Provider Internal Medicine Medical Oncology
DX: D3A.019 Benign carcinoid tumor of the small intestine, unspecified portion (principal)
CPT/HCPCS: 71260; Q9967

== ENCOUNTER → 2021-05-17 08:53 | Outpatient (CLI) | payer MEDICARE, SELFPAY ==
[2021-05-06 13:10] VITALS: BMI 17.8
--- NOTE | 2021-05-17 09:00 | NM_ITS ---
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 OCTREOTIDE-SOMATOSTATIN RECEPTOR PLANAR, SPECT-CT SCINTIGRAPHY COMPARISON: CT of the abdomen-pelvis report 04/21/2021 FINDINGS: Following the intravenous administration of In 111 Octreotide, whole body projections obtained at 4, 24 and 48 hours and SPECT-CT reconstructions of the chest, abdomen and pelvis obtained at 48 hours post radiopharmaceutical administration reveal: 1. There is an increase in radiopharmaceutical concentration identified in the right paramedian mid-lower abdomen and left supraclavicular region on the 4, 24 and 48 hour image acquisitions. 2. Physiologic radiopharmaceutical concentration is demonstrated in the hepatic, splenic parenchyma, right and left renal units, intestinal tract and urinary bladder. There is subtle visualization of the right and left adrenal glands. Facilitated uptake noted in the midline cranial vault is most consistent with normal pituitary tracer distribution. NM/Tumor Localization Limited IMPRESSION: 1. 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 Histopathologic analysis may be indicated if not previously obtained. 2. No other definitive scintigraphic abnormalities are encountered. Electronically Signed: Osmin Serrano DO at 22:15 EDT Tel , Service support ,
== END ==
PROVIDERS: PCP Family Medicine; Referring Provider Internal Medicine Medical Oncology; Visit Provider Internal Medicine Medical Oncology
DX: D3A.019 Benign carcinoid tumor of the small intestine, unspecified portion (principal)
CPT/HCPCS: 78800; 78801; 78803; A9572

== ENCOUNTER 2021-09-01 16:11 | Observation (INO) | payer MEDICARE, SELFPAY ==
[2021-09-01 16:12] VITALS: BP 172/85; PULSE 73; RESP 16; TEMP 36; O2SAT 98; BMI 19.1
--- NOTE | 2021-09-01 16:20 | RAD_ITS ---
STUDY: X-RAY - LEFT KNEE REASON FOR EXAM: Female, 66 years old. Acute pain after fall TECHNIQUE: 3 view(s) of the knee. COMPARISON: None. FINDINGS: Normal visualized distal femur and patella There is an acute, impacted, multi fragmented and likely osteochondral fracture of the proximal tibia with diffuse soft tissue swelling and joint effusion. There is approximately 1.06 cm of impaction. And there also appears to be slight depression of the lateral aspect of the lateral tibial plateau. There is also an acute, slightly impacted and angulated proximal fibular fracture with soft tissue swelling. RAD/Knee 1 or 2 Views IMPRESSION: Acute tibia and fibular fractures as described above with soft tissue swelling and joint effusion. Orthopedic surgery consultation recommended. Tricompartmental arthrosis with chondrocalcinosis Electronically Signed: Denver Benito MD at 17:00 EST , Service support ,
--- NOTE | 2021-09-01 16:32 | RAD_ITS ---
STUDY: X-RAY - LEFT TIBIA AND FIBULA REASON FOR EXAM: Female, 66 years old. Acute pain and swelling TECHNIQUE: 4 view(s) of the tibia and fibula were obtained. COMPARISON: None. FINDINGS: Acute, impacted multifragmented fracture in the proximal tibia with suspected extension into the articular surface as well. There is an acute, slightly impacted and angulated fracture of the proximal fibula as well. There is no demonstrated fracture in the distal tibia or fibula. Ankle mortise is well preserved. Mild tricompartmental knee joint arthrosis with chondrocalcinosis. RAD/Tibia & Fibula 2 Views IMPRESSION: Acute slightly impacted multifragmented fracture of the proximal tibia, I suspect there is an osteochondral component as well. CT scan may be of benefit for further evaluation. There is associated soft tissue swelling Acute slightly impacted and angulated fracture in the proximal shaft of the fibula with soft tissue swelling Tricompartmental knee joint arthrosis with chondrocalcinosis No demonstrated fracture elsewhere in the tibia and fibula Electronically Signed: Denver Benito MD at 16:58 EST , Service support ,
--- NOTE | 2021-09-01 16:33 | EDS_ITS ---
HPI History of Present Illness Chief Complaint: Lower Extremity Injury Informant: patient and spouse/S.O. Occured/Mechanism Mechanism/Context: Yes injury and Yes blunt trauma Onset/Context/Timing Onset: Today and Hours Context: Sudden Onset Timing: Continuous Quality of Pain: Sharp Current Severity: Moderate Maximum Severity: Severe Associated Symptoms Associated Symptoms: Negative for Parasthesia and Weakness Narrative Narrative: 66-year-old female was playing with her large dog outside when the dog sideswiped her and when she went down she injured her left lower leg just below the knee. Unable to walk on that leg due to pain. Denies any hip or left ankle or foot pain. The other extremities are uninjured. She denies any other complaints. She is never had surgery to her left knee or lower leg. Prior similar symptoms: No Recent Illness/Hospitalization: No PFSH PFSH Medical History Anxiety Arthritis Cecal volvulus Depression IBS (irritable bowel syndrome) Osteopenia Home Medications acetaminophen [Tylenol Extra Strength] 1,000 mg PO Q6H PRN 04/21/21 [History Last Taken 04/21/21 11:00] multivitamin 1 tab PO DAILY 05/26/21 [History Last Taken Unknown] alprazolam 0.25 mg tablet 0.25 mg PO TID PRN #90 tab 06/29/21 [Rx Last Taken Unknown] paroxetine HCl 20 mg tablet 20 mg PO DAILY #90 tab 06/29/21 [Rx Last Taken Unknown] Allergy/AdvReac Type Severity Reaction Status Date / Time ibuprofen [From Advil] AdvReac Intermediate stomach Verified 09/01/21 16:14 problems Family History Mother Breast cancer Father Cancer Surgical History History of colonoscopy History of partial hysterectomy History of right hemicolectomy (~04/21/21) Social History Smoking Status: Current every day smoker tobacco type: cigarettes alcohol intake: current alcohol intake frequency: holidays/special occasions only Alcohol type: wine substance use type: does not use what type of physical activity do you participate in: walking and bicycling ROS ROS ED ROS Narrative Denies recent illness Review of Systems ROS Unobtainable: Denies due to encephalopathy Constitutional Constitutional ED: Denies fever(s) Eyes Eyes: Denies change in vision ENT ENT ED: Denies ear pain Cardiovascular Cardiovascular: Denies chest pain Respiratory/Chest Respiratory/Chest: Denies dyspnea Gastrointestinal Gastrointestinal: Denies abdominal pain Genitourinary Genitourinary ED: Denies dysuria Musculoskeletal Musculoskeletal: Denies myalgias Integumentary Denies rash Neurologic Neurologic: Denies headache(s) Psychiatric Psychiatric: Denies depression Endocrine Endocrinology: Denies polyuria Hematologic/Lymphatic Hematologic/Lymphatic: Denies easy bruising Allergic/Immunologic Allergic/Immunologic ED: Denies urticaria EXAM Physical Exam Narrative Exam Narrative: This is a 6-year-old female vital signs stable afebrile. H EENT exam unremarkable atraumatic. C-spine nontender. Trachea midline. Lungs clear to auscultation bilaterally. Heart regular rate and rhythm rate about 75 no murmur. Chest were nontender. Abdomen soft nontender. Back and spine nontender. Pelvic girdle intact. Both upper extremities and right lower extremity nontender full range of motion no deformity. Left hip and knee are nontender left proximal lower leg on the lateral side of the proximal fibula is tenderness and swollen. She is able to wiggle her toes has normal DP pulse in her left foot. The foot and ankle are nontender nonswollen. Normal sensation. Neurologically she is awake and alert. Const Vital Signs: 09/01/21 16:12 Temperature 96.8 F L Temperature Source Temporal Pulse Rate 73 Respiratory Rate 16 Blood Pressure 172/85 H Blood Pressure Mean 114 Pulse Ox 98 Oxygen Delivery Method Room Air Positive well nourished and well developed; Negative for obese, cachectic, contractures or unkempt General Appearance ED: well developed and NAD; Negative for unkempt, cachectic or contractures Nutritional Appearance: Negative for cachectic or obese HEENT Reports moist mucous membranes normocephalic and atraumatic; Negative for trauma or tenderness Eyes PERRL Neck full ROM and supple Thyroid: Negative for tender Chest Wall inspection of chest normal and palpation of chest normal Resp normal respiratory effort, no retractions and clear to auscultation bilaterally Auscultation: Negative for rales, rhonchi or wheezes Cardio regular rate, regular rhythm, S1 normal heart sound, S2 normal heart sound and no murmurs GI non-tender, non-distended and no masses Auscultation: normoactive bowel sounds Palpation: soft; Negative for tender, guarding or rebound tenderness present Back/Spine no CVA tenderness General Back: Negative for CVA tenderness Cervical Spine: Negative for cervical spine tenderness Thoracic Spine / Upper Back: Negative for thoracic spinal tenderness Lumbar Spine / Lower Back: Negative for lumbar spinal tenderness Extremity normal to inspection Extremity Narrative: Except tenderness mild swelling left lower leg just below the knee laterally. Neuro oriented x3 and moves all extremities Sensorium / Orientation: alert, oriented to person, oriented to place and oriented to time; Negative for orientation impaired, lethargic or stuporous Motor Exam: strength 5/5 throughout Psych mental status grossly normal Appearance: Negative for unkempt Skin no wounds Lesions: no lesions Rashes: no rashes Trauma: Negative for abrasion or laceration MDM MDM MDM Narrative Medical decision making narrative: 66-year-old female was playing with her dog when it accidentally knocked her over. She injured her left lower leg just below the knee. She will be given IM morphine for pain Zofran to prevent nausea. X-rays of the left knee and tib-fib are being obtained. I am concerned for fracture. On her plain films of the knee and left tib-fib shows a left tibial plateau fracture and proximal fibular fracture. On repeat exam she still having considerable pain IV will be placed she will receive IV morphine and I am obtaining a CAT scan. I have already discussed this with the orthopedic physician supervisor cap and hat production Dr. Mcgowan. He will evaluate the CAT scan and will discuss the plan after that. Patient will be admitted to the hospitalist with orthopedic surgeon planning on doing surgery on her in the morning. Radiography Diagnostic Testing: Clinical Impression(s) from Imaging Studies Knee X-Ray 09/01/21 16:20 IMPRESSION: Acute tibia and fibular fractures as described above with soft tissue swelling and joint effusion. Orthopedic surgery consultation recommended. Tricompartmental arthrosis with chondrocalcinosis Electronically Signed: Denver Benito MD at 17:00 EST , Service support , Tibia/Fibula X-Ray 09/01/21 16:32 IMPRESSION: Acute slightly impacted multifragmented fracture of the proximal tibia, I suspect there is an osteochondral component as well. CT scan may be of benefit for further evaluation. There is associated soft tissue swelling Acute slightly impacted and angulated fracture in the proximal shaft of the fibula with soft tissue swelling Tricompartmental knee joint arthrosis with chondrocalcinosis No demonstrated fracture elsewhere in the tibia and fibula Electronically Signed: Denver Benito MD at 16:58 EST , Service support , Left knee x-ray 4 views interpreted by myself and the radiologist shows a tibial plateau fracture and proximal fibula fracture. Left tib-fib x-rays 2 views interpreted by myself and the radiologist also shows the tibial plateau fracture and proximal fibula fracture. Discharge Plan Triage Chief Complaint: Lower Extremity Injury ED Provider: Ilia Nguyen Dx/Rx/DC Orders Clinical Impression: Closed fracture of tibial plateau, Fracture of fibula, proximal Prescriptions: No Action multivitamin Tablet 1 tab PO DAILY RF: 0 acetaminophen [Tylenol Extra Strength] 500 mg Tablet 1,000 mg PO Q6H PRN (Reason: Pain) RF: 0 paroxetine HCl [Paxil] 20 mg tablet 20 mg PO DAILY Qty: 90 RF: 1 alprazolam [Xanax] 0.25 mg tablet 0.25 mg PO TID PRN (Reason: anxiety) Qty: 90 RF: 1 Primary Care Provider: Demarco Epstein Referrals: Demarco Epstein, DO [Primary Care Provider] - Disposition Disposition: Acute Care Hospital [facility]
[2021-09-01] MEDS: Ondansetron 8 MG Tablet 4 MG PO (16:52)
[2021-09-01] MEDS: morphine 10 MG/ML Syringe IM (16:52)
--- NOTE | 2021-09-01 17:06 | CT_ITS ---
STUDY: CT LEFT KNEE WITHOUT CONTRAST REASON FOR EXAM: Female, 66 years old. Left knee tibial plateau fracture acute pain after a fall RADIATION DOSAGE (If Supplied By Facility): CTDIvol = ( 15.35 ) mGy, DLP = ( 411.33 ) mGycm TECHNIQUE: Transaxial CT imaging of the knee was performed, as well as coronal and sagittal reformations. Individualized dose optimization techniques were used for this CT. COMPARISON: Left knee x-ray dated September 01, 2021 FINDINGS: Acute comminuted fracture of the lateral tibial plateau with mild articular depression of 2 to 3 mm PD and mild displacement of the major fracture fragments is reidentified. A oblique component of the fracture extends across the central aspect of the proximal tibia and through the medial side of the proximal tibial metaphysis exiting through the cortex and there is mild cortical offset. A large lipohemarthrosis is present within the joint space. A mildly impacted and comminuted fracture of the fibular head neck junction is also present with mild displacement. No fractures are seen in the distal femur. The bony structures are demineralized. Mild soft tissue swelling is present. The patella is unremarkable. Chondrocalcinosis noted throughout the menisci. The muscles of the calf are unremarkable. Normal proximal tibiofibular articulation. The quadriceps tendon is grossly normal. The patellar tendon is grossly normal. Normal Hoffa''s fat pad. CT/Extremity Lower without Contra IMPRESSION: 1. Comminuted minimally depressed fracture of the lateral tibial plateau and proximal tibial metaphysis as described above Electronically Signed: Reece De La Garza MD at 19:08 EST , Service support ,
[2021-09-01] MEDS: morphine 8 MG/ML Syringe 6 MG IV (17:28)
--- NOTE | 2021-09-01 17:38 | NURSING ---
MED SURG WHITE LT TIB PLATEAU FX, SURGICAL REPAIR IN AM
--- NOTE | 2021-09-01 17:59 | HP.PCM.HOS_ITS ---
Documented by User: Rich ASHBY 09/01/21 18:24 HPI - General General Date of Admission: 09/01/21 Date of Service: 09/01/21 Chief Complaint: Fall with proximal tibula and fibular fracture. HPI Narrative JONO GARCIA is a [id number]-year-old female who presents to the ED [facility] on 09/01/2021 due knee injury secondary to fall. Patient reports that when she was playing outside with her large dog throwing the ball when the dog bumped her and she fell down and injured her left leg just below the knee. Patient reports that she is unable to move her left leg now due to excruciating pain. Patient denies any pain below the knee or at the ankle. Patient denies any hip pain. Patient denies hitting her head or upper extremities on the fall. Patient denies any other complaints or recent illness. Past medical history is significant for carcinoid tumor of the small intestine, for which he follows with Dr. Mata and who receives octreotide. Vital signs in the ED are temperature 98.6 ?F, BP of 132/85, HR of 73, RR 16 and patient is currently satting 98% on room air. CBC and BMP are unremarkable. X-ray of the left tibia and fibula demonstrate acute slightly impacted multifamily fracture of the proximal tibia with impacted and angulated fracture in the proximal shaft of the fibula with soft tissue swelling. Lower extremity CT is pending. Dr. Mcgowan was consulted and agreed to perform surgery on 09/01/2021. 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 Depression IBS (irritable bowel syndrome) Osteopenia Home Medications acetaminophen [Tylenol Extra Strength] 500 - 1,000 mg PO Q6H PRN 04/21/21 [History Last Taken 08/31/21] multivitamin 1 tab PO DAILY 05/26/21 [History Last Taken 08/31/21] alprazolam 0.25 mg tablet 0.25 mg PO TID PRN #90 tab 06/29/21 [Rx Last Taken 09/01/21] paroxetine HCl 20 mg tablet 20 mg PO DAILY #90 tab 06/29/21 [Rx Last Taken 09/01/21] Allergy/AdvReac Type Severity Reaction Status Date / Time ibuprofen [From Advil] AdvReac Intermediate stomach Verified 09/01/21 16:14 problems Family History Mother Breast cancer Father Cancer Surgical History History of colonoscopy History of partial hysterectomy History of right hemicolectomy (~04/21/21) Social History Smoking Status: Current every day smoker tobacco type: cigarettes alcohol intake: current alcohol intake frequency: holidays/special occasions only Alcohol type: wine substance use type: does not use what type of physical activity do you participate in: walking and bicycling ROS Review of Systems ROS Unobtainable: Denies due to encephalopathy, due to endotracheal tube, due to mental condition, due to mental status or other Constitutional Constitutional: Denies anorexia, change in weight, chills, fatigue, fever(s), malaise, night sweats, weakness or other Eyes Eyes: Denies blurry vision, change in eye color, change in vision, discharge from eye(s), double vision, erythema, eye pain, loss of vision or other ENT HEENT: Denies abnormal hearing, dysphagia, ear pain, epistaxis, headache(s), hearing loss, nasal congestion, nasal discharge, post nasal drip, sinus pressure, sore throat or other Cardiovascular Cardiovascular: Denies chest pain, claudication, dyspnea on exertion, edema, lightheadedness, orthopnea, palpitations, paroxysmal nocturnal dyspnea, rapid heart rate, syncope or other Respiratory/Chest Respiratory/Chest: Denies cough, dyspnea, excessive phlegm production, hemoptysis, productive cough, shortness of breath at rest, shortness of breath with exertion, wheezing or other Gastrointestinal Gastrointestinal: Denies abdominal pain, coffee ground emesis, constipation, diarrhea, dyspepsia, hematemesis, hematochezia, loose stools, melena, nausea, vomiting or other Genitourinary Genitourinary: Denies burning urination, difficulty urinating, dysuria, hematuria, nocturia, urinary frequency, urinary hesitancy, urinary incontinence, urinary urgency or other Musculoskeletal Musculoskeletal: Reports joint pain; Denies arthralgias, back pain, joint stiffness, joint swelling, myalgias, neck pain or other Neurologic Neurologic: Denies abnormal gait, abnormal speech, confusion, disequilibrium, dizziness, focal weakness, headache(s), numbness, paresthesias, seizure-like activity, seizures, syncope, tingling, tremor(s) or other Psychiatric Psychiatric: Denies anxiety, depression, homicidal ideation, suicidal ideation or other Endocrine Endocrinology: Denies change in body appearance, cold intolerance, excessive sweating, heat intolerance, polydipsia, polyuria or other Hematologic/Lymphatic Hematologic/Lymphatic: Denies anemia, easy bleeding, easy bruising, lymphadenopathy or other Allergic/Immunologic Allergic/Immunologic: Denies rhinitis, hives, eczemia, asthma or other Vital Signs Vital Signs Vital Signs: 09/01/21 16:12 Temperature 96.8 F L Temperature Source Temporal Pulse Rate 73 Respiratory Rate 16 Blood Pressure 172/85 H Blood Pressure Mean 114 Pulse Ox 98 Oxygen Delivery Method Room Air Weight Weight: 108 lb 2 oz Body Mass Index (BMI) 19.1 Physical Exam Const alert and oriented x3 General Appearance: cooperative HEENT normocephalic, head/scalp atraumatic, hearing grossly normal bilaterally and moist oral mucous membranes Eyes PERRL, EOMs intact bilaterally and conjunctivae normal Neck no lymphadenopathy, supple and no JVD Resp normal respiratory effort, no retractions, no use of accessory muscles and clear to auscultation bilaterally Cardio regular rate, regular rhythm, no murmurs and no JVD GI normal to inspection, nondistended, normoactive bowel sounds, soft to palpation, non-tender and non-distended Extremity Extremity Narrative: Significant effusion about the left knee with significant guarding and inability to move left knee. Right lower extremity unremarkable. Skin no rashes or lesions noted, no wounds, skin turgor normal and no jaundice Neuro CN's II-XII intact bilaterally Psych affect normal Results Radiology Impression Knee X-Ray 09/01/21 16:20 IMPRESSION: Acute tibia and fibular fractures as described above with soft tissue swelling and joint effusion. Orthopedic surgery consultation recommended. Tricompartmental arthrosis with chondrocalcinosis Electronically Signed: Denver Benito MD at 17:00 EST , Service support , Tibia/Fibula X-Ray 09/01/21 16:32 IMPRESSION: Acute slightly impacted multifragmented fracture of the proximal tibia, I suspect there is an osteochondral component as well. CT scan may be of benefit for further evaluation. There is associated soft tissue swelling Acute slightly impacted and angulated fracture in the proximal shaft of the fibula with soft tissue swelling Tricompartmental knee joint arthrosis with chondrocalcinosis No demonstrated fracture elsewhere in the tibia and fibula Electronically Signed: Denver Benito MD at 16:58 EST , Service support , Assessment & Plan Assessment/Plan (1) Closed fracture of tibial plateau: (2) Fracture of fibula, proximal: (3) Carcinoid tumor of small intestine: QUALIFIERS: Carcinoid tumor malignancy status: benign Carcinoid tumor small intestine location: ileum Qualified Code(s): D3A.012 - Benign carcinoid tumor of the ileum PLAN: Patient is a 66-year-old female who presents to the ED at [facility] on 09/01/2021 after suffering a fall with proximal tibial and fibular fracture. Patient will be admitted for surgery. 1) fall with proximal tubular and angulated proximal fibular fracture Patient reports that while she was throwing the ball with her dog, her dog bumped her, and she fell onto her left knee and now reports significant pain with left leg swelling. X-ray obtained in the ED demonstrated acute slightly i mpacted multisegmental fracture of the proximal tibia with acute slightly impacted angulated fracture in the proximal shaft of the fibula with soft tissue swelling. Lower extremity CT obtained in the ED and is pending. Patient is low risk for complications from surgery. Plan; admit to [facility], Dr. Mcgowan consulted and plan is for surgery in a.m., as needed medications ordered, SCDs ordered, CBC and BMP in a.m., PT/OT eval ordered, case management consulted, regular diet with n.p.o. at midnight. 2) history of carcinoid tumor Pathology results from hemicolectomy demonstrated carcinoid tumor of the small bowel in April 2021. Patient has followed with Dr. Mata and receives injections of octreotide which was last completed on 06/13/2021 to acute, stable. Recommend continued outpatient follow-up. 3) depression/anxiety Continue Paxil, Xanax as needed. 4) COPD Not in acute exacerbation, currently satting 90% on room air. As needed albuterol ordered. DVT prophylaxis - SCDs CODE STATUS: Full code Patient seen by Rich Davila PA-C, under the supervision of Dr. Daily. Documented by User: Dr. 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 Depression IBS (irritable bowel syndrome) Osteopenia Home Medications acetaminophen [Tylenol Extra Strength] 500 - 1,000 mg PO Q6H PRN 04/21/21 [History Last Taken 08/31/21] multivitamin 1 tab PO DAILY 05/26/21 [History Last Taken 08/31/21] alprazolam 0.25 mg tablet 0.25 mg PO TID PRN #90 tab 06/29/21 [Rx Last Taken 09/01/21] paroxetine HCl 20 mg tablet 20 mg PO DAILY #90 tab 06/29/21 [Rx Last Taken 09/01/21] Allergy/AdvReac Type Severity Reaction Status Date / Time ibuprofen [From Advil] AdvReac Intermediate stomach Verified 09/01/21 16:14 problems Family History Mother Breast cancer Father Cancer Surgical History History of colonoscopy History of partial hysterectomy History of right hemicolectomy (~04/21/21) Social History Smoking Status: Current every day smoker tobacco type: cigarettes alcohol intake: current alcohol intake frequency: holidays/special occasions only Alcohol type: wine substance use type: does not use what type of physical activity do you participate in: walking and bicycling
[2021-09-01 18:00] VITALS: BP 160/81; PULSE 73; RESP 17; TEMP 36.7; O2SAT 96
--- NOTE | 2021-09-01 18:19 | CONS.ORTHO ---
HPI Consult Data Date of Consult: 09/01/21 HPI Narrative HPI Narrative: JONO GARCIA, is a 66 F who presents To [facility] emergency department 09/01/2021 after an injury where her dog contacted her lateral left knee around 1400 today. Patient was unable to bear weight. X-rays in the emergency department revealed a left tibial plateau fracture, bicolumnar. I was called from nurse department for recommendations. Due to the unstable nature, I recommend admission to the hospital for monitoring for compartment syndrome. Also recommended spanning external fixator. I saw the patient emergency department. She states at rest her pain was relatively well controlled during my examination. She denies any numbness or tingling. Denies any fevers, chills, chest pain or shortness of breath. Denies any antecedent left knee pain except for the weather changing. Has not sought care for any arthritis of her knee. Denies any significant past injury or surgery to her left knee. She states she is quite active walking her dog daily and denies any use of assistive device. [facility] Medical History (Updated 09/01/21 @ 18:[address] 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 Depression IBS (irritable bowel syndrome) Osteopenia Home Medications acetaminophen [Tylenol Extra Strength] 500 - 1,000 mg PO Q6H PRN 04/21/21 [History Last Taken 08/31/21] multivitamin 1 tab PO DAILY 05/26/21 [History Last Taken 08/31/21] alprazolam 0.25 mg tablet 0.25 mg PO TID PRN #90 tab 06/29/21 [Rx Last Taken 09/01/21] paroxetine HCl 20 mg tablet 20 mg PO DAILY #90 tab 06/29/21 [Rx Last Taken 09/01/21] Allergy/AdvReac Type Severity Reaction Status Date / Time ibuprofen [From Advil] AdvReac Intermediate stomach Verified 09/01/21 16:14 problems Family History Mother Breast cancer Father Cancer Surgical History History of colonoscopy History of partial hysterectomy History of right hemicolectomy (~04/21/21) Social History Smoking Status: Current every day smoker tobacco type: cigarettes alcohol intake: current alcohol intake frequency: holidays/special occasions only Alcohol type: wine substance use type: does not use what type of physical activity do you participate in: walking and bicycling ROS ROS Narrative 10 point review of systems obtained, negative unless otherwise noted in HPI. Vital Signs Vital Signs Vital Signs: 09/01/21 16:12 09/01/21 18:00 Temperature 96.8 F L 98.0 F Temperature Source Temporal Oral Pulse Rate 73 73 Respiratory Rate 16 17 Blood Pressure 172/85 H 160/81 H Blood Pressure Mean 114 107 Pulse Ox 98 96 Oxygen Delivery Method Room Air Room Air Weight Weight: 108 lb 2 oz Body Mass Index (BMI) 19.1 Physical Exam Narrative General -A&Ox3, NAD, appears stated age. Vital signs stable, afebrile. Respiratory -normal work of breathing, no intercostal retractions. CV -pulses regular, brisk capillary refill ?4 limbs. Abdomen-soft, nontender, nondistended. No guarding, rigidity, rebound tenderness. Musculoskeletal/neurologic -full range of motion nontender throughout bilateral upper extremities, right lower extremity with full sensation and strength in all dermatomes and myotomes. No midline cervical tenderness.[] Left lower extremity-nontender about the left femur. 3+ left knee effusion with blottable patella. Skin intact circumferentially. Tender to palpation about the left proximal tibia. Compartments are soft and compressible. No pain with passive stretch of the toes. Brisk capillary refill. Sensation intact light touch L3-S1 dermatomes. DF, PF, EHL intact. DP, PT 2+. Pelvis is stable, nontender. Skin is intact without lacerations, abrasions. No ecchymosis noted. Radiology Impression Knee X-Ray 09/01/21 16:20 IMPRESSION: Acute tibia and fibular fractures as described above with soft tissue swelling and joint effusion. Orthopedic surgery consultation recommended. Tricompartmental arthrosis with chondrocalcinosis Electronically Signed: Denver Benito MD at 17:00 EST , Service support , Tibia/Fibula X-Ray 09/01/21 16:32 IMPRESSION: Acute slightly impacted multifragmented fracture of the proximal tibia, I suspect there is an osteochondral component as well. CT scan may be of benefit for further evaluation. There is associated soft tissue swelling Acute slightly impacted and angulated fracture in the proximal shaft of the fibula with soft tissue swelling Tricompartmental knee joint arthrosis with chondrocalcinosis No demonstrated fracture elsewhere in the tibia and fibula Electronically Signed: Denver Benito MD at 16:58 EST , Service support , Assessment & Plan Assessment/Plan (1) Closed fracture of tibial plateau: QUALIFIERS: Encounter type: initial encounter Laterality: left Qualified Code(s): S82.142A - Displaced bicondylar fracture of left tibia, initial encounter for closed fracture PLAN: Patient sustained a closed fracture of the left tibial plateau, Schatzker 6 Neurovascular intact, no evidence of compartment syndrome at this time. Recommending surgical intervention in the form of application of left knee spanning external fixator I discussed the risk, benefits, alternatives to procedure with the patient at length. She agreed to proceed. She was educated about signs symptoms of compartment syndrome. Ice and elevation recommended. N.p.o. after midnight 1 g Ancef on-call to the OR Type and screen Nonweightbearing left lower extremity, patient placed in knee immobilizer
--- NOTE | 2021-09-01 18:30 | EKG12_ITS ---
Test Reason : PRE-OP Blood Pressure : / mmHG Vent. Rate : 067 BPM Atrial Rate : 067 BPM P-R Int : 186 ms QRS Dur : 072 ms QT Int : 400 ms P-R-T Axes : 071 -76 052 degrees QTc Int : 422 ms Normal sinus rhythm Left anterior fascicular block Abnormal ECG When compared with ECG of 21-APR-2021 18:38, No significant change was found Confirmed by SALVADOR CORNELL, NIMESH ([id number]), newspaper clipper ZACHERY RODRIGUEZ ([id number]) on 09/03/2021 11:52:57 AM Referred By: SENG Confirmed By:NIMESH FRANCO MD
[2021-09-01 18:38] VITALS: BMI 18.1
[2021-09-01 18:55] VITALS: BP 155/84; PULSE 73; RESP 16; TEMP 36.8; O2SAT 99
--- NOTE | 2021-09-01 19:35 | RAD_ITS ---
STUDY: X-RAY CHEST REASON FOR EXAM: Female, 66 years old. pre-op screening TECHNIQUE: Single AP portable view of the chest. COMPARISON: CT of the chest dated May 04, 2021 FINDINGS: There is hyperinflation of the lungs consistent with chronic obstructive lung disease (COPD). There is no demonstrated pleural abnormality. Normal size heart. Normal mediastinum and debibe. Normal visualized pulmonary arteries. There is atherosclerotic tortuosity of the aortic arch and descending thoracic aorta. There are diffuse degenerative changes of the visualized thoracic spine. Normal visualized ribs, clavicles, and shoulders. There is no demonstrated abnormality of the visualized soft tissue structures of the upper abdomen. RAD/Chest 1 View (Portable) IMPRESSION: 1. COPD Electronically Signed: Reece De La Garza MD at 19:51 EST , Service support ,
[2021-09-01 20:16] VITALS: BP 122/68; PULSE 76; RESP 14; TEMP 36.6; O2SAT 96
[2021-09-01 20:20] LABS: Absolute Lymphocyte Count 1.65 X10^3/uL (0.83-4.51); Absolute Neutrophil Count 8.7 X10^3/uL (2.0-7.7); Basophil# 0.05 X10^3/uL; Basophil% 0.4 % (0-1); Eosinophil# 0.03 X10^3/uL; Eosinophils% 0.3 % (0-5); Hematocrit 41.3 % (37-47); Hemoglobin 13.2 g/dL (12.0-15.0); Lymphocyte # 1.65 X10^3/ul (0.83-4.51); Lymphocyte % 14.7 % (19-41); Mean Corpuscular Hgb 30.3 pg (27.0-32.0); Mean Corpuscular Volume 94.9 fL (81-99); Mean Platelet Vol. 9.4 fl (6.2-12.0); Monocyte# 0.79 X10^3/uL; NRBC Flagged by Analyzer 0 % (0-5); Neutrophil # 8.65 X10^3/uL (2.7-7.7); Neutrophil % 77.2 % (47-70); Platelet Count 174 K/mm3 (150-450); RBC Distribution Width CV 13.8 % (11.6-14.6); RBC Distribution Width SD 48.5 fl (35.1-43.9); Red Blood Count 4.35 M/mm3 (4.2-5.4); White Blood Count 11.2 K/mm3 (4.4-11.0)
[2021-09-01 20:40] LABS: Anion Gap 7 (5-15); BUN 15 mg/dL (7-18); BUN/Creat Ratio 24.1 RATIO (10-20); Calcium,Total 9.2 mg/dL (8.5-10.1); Chloride 100 mmol/L (98-107); Creatinine, Serum 0.62 mg/dL (0.55-1.02); EST Glomerular Filtration Rate 102 mL/min (>60); Est Glom Filt Rate - Afr Amer 123 mL/min (>60); Estimated Creatinine Clearance 41.15 ml/min; Glucose 166 mg/dL (74-106); Potassium 4.1 mmol/L (3.5-5.1); Sodium Level 137 mmol/L (136-145)
[2021-09-01] MEDS: 0.9% Normal Saline 1,000 ML 125 ML IV (21:09)
[2021-09-01 23:28] LABS: Probe Check PASS; Specimen Processing Control PASS
[2021-09-02] VITALS (11 sets, daily range): BP systolic 122–164; BP diastolic 68–86; PULSE 75–92; RESP 16; TEMP 36.2–37.1; O2SAT 91–100; BMI 18.1
[2021-09-02] MEDS: Morphine 2 MG/ML Syringe IV ×3 (00:19→22:50)
[2021-09-02] MEDS: Acetaminophen 325 MG Tablet 650 MG PO ×2 (02:35→22:50)
[2021-09-02] MEDS: oxyCODONE 5 MG Tablet PO ×2 (02:35→22:48)
[2021-09-02] MEDS: 0.9% Normal Saline 1,000 ML 125 ML IV ×3 (04:10→23:39)
--- NOTE | 2021-09-02 06:03 | RAD_ITS ---
STUDY: X-RAY - LEFT KNEE REASON FOR EXAM: Female, 66 years old. FX TECHNIQUE: AP and lateral fluoroscopic view(s) of the knee. 5 fluoroscopic images. 1.65 mgy cumulative dose. 26.2 seconds of fluoroscopy time. COMPARISON: None. FINDINGS: Fluoroscopic images show placement of external fixation device of the distal tibia with tibial plateau and proximal fibular fractures partially visualized. RAD/Knee 1 or 2 Views IMPRESSION: Fluoroscopic guidance for external fixation device placement. Electronically Signed: Sunday Hsu MD (Brooks) at 14:36 EST , Service support ,
--- NOTE | 2021-09-02 06:07 | OP.PCM_ITS ---
Problems Associated Problem List Diagnoses (1) Closed fracture of tibial plateau: Report of Operation Date of Procedure: 09/02/21 Description of Surgical Findings:: Preoperative diagnosis: Left bicolumnar closed tibial plateau fracture Postoperative diagnosis: Left bicolumnar closed tibial plateau fracture Procedure: 1. Closed reduction left tibial plateau fracture 2. Application of left knee spanning external fixator Surgeon: Alex Mcgowan DO Pit Slagman: Ilia Pratt. ELECTROPLATER HELPER Anesthesia: General LMA Anesthesiologist: Dr. Cannon Complications: None Drains: None Estimated blood loss: 5 cc Urinary output: None IV fluids: Per anesthesia record Specimens: None Surgical implants: Sheeba Bird external fixator system with 5 mm x 150 mm pins x4, 10 hole clamp, 5 hole clamp, 450 mm rods x2, 30 degree angle post x4, miguel to miguel connector x4 Indications: This is a 66-year-old female who sustained a left knee injury after she was walking her dog. Sustained a valgus force across her left knee as a dog contacted her lateral knee. She was unable to bear weight. She was brought to [facility] emergency department 09/01/2021. I was contacted from the emergency department. X-rays and CT scan revealed a bicolumnar tibial plateau fracture. I reviewed the imaging. Given the unstable nature and risk of compartment syndrome, I recommended we admit the patient to the hospital for application of knee spanning external fixator left side. I reviewed the procedure with the patient. We discussed the risks, benefits, alternatives to procedure. Risks include but were not limited to bleeding, infection, loss of life or limb, risk of anesthesia, persistent pain, compartment syndrome, need for additional surgery, pin site infection, persistent limp or disability after surgery, failure mechanical orthopedic device. Informed consent was obtained she agreed to proceed. She had no findings of compartment syndrome last evening, I felt it safe to wait until the following morning to apply the external fixator. She was reexamined in the preoperative holding area, without significant swelling of the anterior compartment and no other findings of compartment syndrome. Description of procedure: Prior to his procedure, she was brought to the preoperative holding area. Identified the patient by his name, medical record number, and date of . The operative extremity was marked. Informed consent was again confirmed with the patient and all questions answered were to the patient satisfaction. Patient was also seen by the anesthesia staff prior to the procedure. At time of her procedure he was brought to the operative suite. General anesthesia was induced and laryngeal mask airway placed in patient's hospital bed. After adequate anesthesia and securing the tube, patient was then transferred and positioned supine a standard operating table. Bath blankets were used to elevate the left lower extremity in a ramped type fashion and secured with tape. The knee immobilizer was then removed. We then prepped the left lower extremity in a normal, sterile orthopedic fashion with ChloraPrep. We then performed a timeout with all parties in attendance in agreement with the side, site, operation to be performed. 1 g of Ancef was administered prior to incision by the anesthesia staff. No concerns are voiced and we elected to proceed at this time. I first used fluoroscopy to identify the level of the fracture. I marked my level tibial pins approximately 4 fingerbreadths distal to the planned surgical fixation. I then, utilizing a 5 hole clamp as a guide, selected planned pin sites. I incised the skin sharply with a 15 blade scalpel. Bluntly dissected down the level of the periosteum. I drilled bicortically for 2 5 mm pins in the tibia. Pins were placed to appropriate depth, as confirmed on fluoroscopy. We then turned attention to the femur. I placed two 5 mm bicortical pins in similar fashion through the anterior compartment of the thigh bluntly dissecting through subcutaneous and muscular burrell. I utilized a 10 hole clamp for the femur. I then constructed my knee spanning fixator frame with angled bars, clamps, and 450 mm rods on the medial and lateral sides of the pins. I then provisionally tightened the frame. I performed a closed reduction maneuver with a valgus stress and traction. I had my trust administrative assistant tightened the frame after an appropriate close reduction was confirmed on orthogonal fluoroscopy. We then cleansed the leg. ANNETTE stasis was excellent. We dressed the pin sites with Xeroform, Kerlix gauze. We then applied a Filipe wrap from the foot to the proximal thigh to alleviate swelling. Patient tolerated the procedure well without complication. She was able to be safely extubated in the operative suite. Post Operative Plan: Weightbearing: Nonweightbearing left lower extremity Antibiotics: 1 g Ancef intraoperatively, x2 doses postoperatively DVT Prophylaxis: Lovenox 40 mg to start tomorrow Ariza: None Dressing: Maintain x1 day, then begin pin care with 50: 50 sodium peroxide: Normal saline and dry sterile dressing changes daily. Follow-up: Follow-up with me in approximately 1 week in the office for evaluation and discussion regarding definitive fixation likely in the coming week or 2, which will be removal of external fixator left leg and open reduction internal fixation left tibial plateau.
[2021-09-02 06:08] LABS: Absolute Lymphocyte Count 1.69 X10^3/uL (0.83-4.51); Absolute Neutrophil Count 7.2 X10^3/uL (2.0-7.7); Basophil# 0.05 X10^3/uL; Basophil% 0.5 % (0-1); Eosinophil# 0.06 X10^3/uL; Eosinophils% 0.6 % (0-5); Hematocrit 40.3 % (37-47); Hemoglobin 12.7 g/dL (12.0-15.0); Lymphocyte # 1.69 X10^3/ul (0.83-4.51); Lymphocyte % 16.8 % (19-41); Mean Corp Hgb Conc 31.5 g/dL (32-36); Mean Corpuscular Hgb 30.5 pg (27.0-32.0); Mean Corpuscular Volume 96.9 fL (81-99); Mean Platelet Vol. 9.3 fl (6.2-12.0); Monocyte# 1.04 X10^3/uL; Monocyte% 10.3 % (0-10); NRBC Flagged by Analyzer 0 % (0-5); Neutrophil # 7.19 X10^3/uL (2.7-7.7); Neutrophil % 71.5 % (47-70); Platelet Count 147 K/mm3 (150-450); RBC Distribution Width SD 50.4 fl (35.1-43.9); Red Blood Count 4.16 M/mm3 (4.2-5.4); White Blood Count 10.1 K/mm3 (4.4-11.0)
[2021-09-02 06:44] LABS: ALB/GLOB Ratio 0.9 RATIO (0.9-2.4); AST(SGOT) 21 U/L (15-37); Alanine Aminotransfer ALT/SGPT 24 U/L (13-56); Albumin, Serum 3.5 g/dL (3.2-5.0); Alkaline Phosphatase 83 U/L (45-117); Anion Gap 5 (5-15); BUN 13 mg/dL (7-18); Calcium,Total 8.5 mg/dL (8.5-10.1); Chloride 104 mmol/L (98-107); Creatinine, Serum 0.62 mg/dL (0.55-1.02); EST Glomerular Filtration Rate 102 mL/min (>60); Est Glom Filt Rate - Afr Amer 124 mL/min (>60); Estimated Creatinine Clearance 41.15 ml/min; Globulin 3.7 g/dL (2.2-4.2); Glucose 131 mg/dL (74-106); Magnesium 2.1 mg/dL (1.6-2.6); Phosphorus 3.5 mg/dL (2.5-4.9); Potassium 3.9 mmol/L (3.5-5.1); Protein, Total 7.2 g/dL (6.4-8.2); Sodium Level 139 mmol/L (136-145)
--- NOTE | 2021-09-02 06:56 | PN.HOSP_ITS ---
Subjective Subjective Patient with no acute events overnight aside from ongoing significant pain but transition to OR this morning early with closed reduction of the left tibial plateau fracture and application of left knee spanning external fixator by Dr. Mcgowan with recommendation for postop day 1 initiation of pin care with sodium peroxide and then normal saline with dry sterile dressing changes daily with requested follow-up 1 week in the office to review possibility for definitive fixation likely in 1 to 2 weeks with removal of external fixator at that time and open reduction internal fixation of the left tibial plateau. Patient has yet to even have any crutch training. Patient denies fevers, chills, nausea, emesis, abdominal pain, chest pain or dyspnea. Objective Data Objective Data Vital Signs: Vital Signs Temp Pulse Resp BP Pulse Ox 97.1 F L 78 16 164/79 H 92 09/02/21 02:31 09/02/21 02:31 09/02/21 02:31 09/02/21 02:31 09/02/21 02:31 Oxygen Delivery Method Room Air Weight: 103 lb 13.404 oz Body Mass Index (BMI) 18.1 Intake & Output: Intake and Output for Last 24 Hours 08/31/21 09/01/21 09/02/21 23:59 23:59 23:59 Intake Total 877.08 / 877.08 Output Total 300 / 300 Balance 577.08 / 577.08 Lab / Micro Data Result Diagrams: 09/02/21 04:50 09/02/21 04:50 Labs: Laboratory Results - last 24 hr 09/01/21 19:30: WBC 11.2 H, RBC 4.35, Hgb 13.2, Hct 41.3, MCV 94.9, MCH 30.3, MCHC 32.0, RDW Std Deviation 48.5 H, RDW Coeff of Reece 13.8, Plt Count 174, MPV 9.4, Immature Gran % (Auto) 0.400, Neut % (Auto) 77.2 H, Lymph % (Auto) 14.7 L, Dolores % (Auto) 7.0, Eos % (Auto) 0.3, Baso % (Auto) 0.4, Absolute Neuts (auto) 8.7 H, Absolute Lymphs (auto) 1.65, Nucleated RBC % 0 09/01/21 19:30: Sodium 137, Potassium 4.1, Chloride 100, Carbon Dioxide 30.0, Anion Gap 7, BUN 15, Creatinine 0.62, Estim Creat Clear Calc 41.15, Est GFR (MDRD) Af Amer 123, Est GFR (MDRD) Non-Af 102, BUN/Creatinine Ratio 24.1 H, Glucose 166 H, Calcium 9.2 09/01/21 19:30: Blood Type AB POSITIVE, Antibody Screen NEGATIVE 09/01/21 22:02: COVID-19 (RASHMI) Negative 09/02/21 04:50: WBC 10.1, RBC 4.16 L, Hgb 12.7, Hct 40.3, MCV 96.9, MCH 30.5, MCHC 31.5 L, RDW Std Deviation 50.4 H, RDW Coeff of Reece 14.0, Plt Count 147 L, MPV 9.3, Immature Gran % (Auto) 0.300, Neut % (Auto) 71.5 H, Lymph % (Auto) 16.8 L, Dolores % (Auto) 10.3 H, Eos % (Auto) 0.6, Baso % (Auto) 0.5, Absolute Neuts (auto) 7.2, Absolute Lymphs (auto) 1.69, Nucleated RBC % 0 09/02/21 04:50: Sodium 139, Potassium 3.9, Chloride 104, Carbon Dioxide 30.0, Anion Gap 5, BUN 13, Creatinine 0.62, Estim Creat Clear Calc 41.15, Est GFR (MDRD) Af Amer 124, Est GFR (MDRD) Non-Af 102, BUN/Creatinine Ratio 21.0 H, Glucose 131 H, Calcium 8.5, Phosphorus 3.5, Magnesium 2.1, Total Bilirubin 0.70, AST 21, ALT 24, Alkaline Phosphatase 83, Total Protein 7.2, Albumin 3.5, Globulin 3.7, Albumin/Globulin Ratio 0.9 Radiography Diagnostic Testing: Radiology Impression Knee X-Ray 09/01/21 16:20 IMPRESSION: Acute tibia and fibular fractures as described above with soft tissue swelling and joint effusion. Orthopedic surgery consultation recommended. Tricompartmental arthrosis with chondrocalcinosis Electronically Signed: Denver Benito MD at 17:00 EST , Service support , Tibia/Fibula X-Ray 09/01/21 16:32 IMPRESSION: Acute slightly impacted multifragmented fracture of the proximal tibia, I suspect there is an osteochondral component as well. CT scan may be of benefit for further evaluation. There is associated soft tissue swelling Acute slightly impacted and angulated fracture in the proximal shaft of the fibula with soft tissue swelling Tricompartmental knee joint arthrosis with chondrocalcinosis No demonstrated fracture elsewhere in the tibia and fibula Electronically Signed: Denver Benito MD at 16:58 EST , Service support , Lower Extremity CT 09/01/21 17:06 IMPRESSION: 1. Comminuted minimally depressed fracture of the lateral tibial plateau and proximal tibial metaphysis as described above Electronically Signed: Reece De La Garza MD at 19:08 EST , Service support , Chest X-Ray 09/01/21 19:35 IMPRESSION: 1. COPD Electronically Signed: Reece De La Garza MD at 19:51 EST , Service support , Physical Exam Narrative Physical Examination: General: awake, alert, oriented x 3 and cooperative, seated upright in the PCU bed, uncomfortable but less so than day prior, status post OR with external fixator in place. Skin: normal color, normal turgor, no icterus, no cyanosis, status post ORIF fixator in place, dressing in place no drainage noted. HEENT: AT/NC, EOMI, PERRLA, mildly dry MM. Lungs: Diminished, greater bases, appropriate effort, no rales, ronchi or wheezing. Heart: Regular rate and rhythm; no gallop, rub audible. Abdomen: soft, thin habitus, NTTP, ND, mildly hyperactive bowel sounds. Extremities: no cyanosis, no clubbing, distal pulses intact, left knee status post OR with dressing in place in left fixator evident. Neurological: patient awake, alert, oriented x 3; cognitive function intact; pupils equally reactive to light and accommodation; cranial nerves II-XII grossly normal, moving extremities except specifically limited left lower extremity movement given tibial fracture w/ OR s/p ex fix placement, able to wiggle toes, sensation intact, strength accordingly severely global decreased. Psychiatric: affect appears uncomfortable, no acute evidence of depressive or anxiety feelings. Assessment & Plan Assessment/Plan (1) Closed fracture of tibial plateau: QUALIFIERS: Encounter type: initial encounter Laterality: left Qualified Code(s): S82.142A - Displaced bicondylar fracture of left tibia, initial encounter for closed fracture (2) Fracture of fibula, proximal: QUALIFIERS: Encounter type: initial encounter Fracture morphology: unspecified fracture morphology Fracture type: closed Laterality: left Qualified Code(s): S82.832A - Other fracture of upper and lower end of left fibula, initial encounter for closed fracture PLAN: The patient is a 66 y/o F w/ PMHx: Anxiety and Depression, IBS, OA, Tobacco use, 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 Mata who presents to the [facility] ED on 09/01/21 w/ history of unfortunate injury noting that her dog ran into her lateral left knee at about 2 PM on day of presentation with difficulty bearing weight since that time and ongoing intractable severe 10 out of 10 pain. #1. General debility, L knee pain s/p injury/trauma w/ left knee resulted with a comminuted minimally displaced fracture of the lateral tibial plateau and prox imal tibial metaphysis: Patient mid to medical surgical floor, orthopedic surgery consulted and evaluated patient in the ED with transition to OR 09/02/2020 1 AM with closed reduction left tibial plateau fracture with application of left knee spanning external fixator, transition to nonweightbearing to that extremity with crutch training, continue oral and IV as needed pain regimen, will DC catheter once able, plan starting postop day 1 pain care initiation with 50:50 sodium peroxide: Normal saline and dry sterile dressing changes daily with follow-up in the office in 1 week with orthopedic haley rgery for discussions regarding definitive fixation likely 1 to 2 weeks following with removal of external fixator at that time with open reduction internal fixation of left tibial plateau fracture. PT/OT/CM consultations for discharge planning 09/03/2021. #2. Elevated BP without hypertensive diagnosis: Patient with notably elevated blood pressure, likely pain related, will continue to monitor, as needed IV hydralazine in interim #3. History of small bowel carcinoid tumor: Diagnosed initially 04/21/2021 status post laparotomy with at that time necrotic right colon with mesenteric mass close to the SMA as well as a mass in the distal small intestine/ileum with right hemicolectomy and resection of the small bowel segment with anastomosis with pathology demonstrating carcinoid tumor. CT chest 05/04/2021 demonstrated right upper lobe nodule. Patient underwent octreotide scan 05/17/2021 which showed some activity in the abdomen and left supraclavicular area with follow-up PET/CT 06/08/2021 with no uptake in solitary lung nodule right upper lobe with patient initiated on Sandostatin LAR monthly with most recent visit 08/12/2021 with third cycle at that time. #4. Suspected underlying chronic COPD: Patient not on any routine regimen, encourage tobacco cessation, encourage I-S, head of bed and as needed albuterol if necessary. #5. Tobacco Abuse: Encouraged cessation, inpatient consultation per RT, NR if desired. #6. Anxiety and depression: We will continue patient home alprazolam and p aroxetine regimen. #7. DVT prophylaxis: SCDs, patient initiated on Lovenox per orthopedic surgery p ostoperatively. Charges/Coding Visit Charges Inpatient E&M: 86603 Subs Hosp L2
[2021-09-02] MEDS: Bacitracin 500 UNITS/GM PACKET (12:26)
[2021-09-02] MEDS: Cefazolin 1 GM/50 ML BAG IV ×2 (16:21→22:50)
[2021-09-02] MEDS: ALPRAZolam 0.25 MG Tablet PO (22:48)
[2021-09-03 01:44] VITALS: BMI 18.1
[2021-09-03] MEDS: Morphine 2 MG/ML Syringe IV (03:51)
[2021-09-03 04:55] VITALS: BP 137/80; PULSE 89; RESP 14; TEMP 37; O2SAT 96
[2021-09-03 05:44] VITALS: BMI 18.1
--- NOTE | 2021-09-03 06:45 | PN.HOSP_ITS ---
Subjective Subjective Patient overnight with no acute events per self and per nursing report. Patient is set to do crutch training this morning. She notes that she does have full sensation back and does have some discomfort but is yet to be up and moving with therapies. Patient is very eager for discharge. Patient denies fevers, chills, nausea, emesis, abdominal pain, chest pain or dyspnea. Objective Data Objective Data Vital Signs: Vital Signs Temp Pulse Resp BP Pulse Ox 98.6 F 89 14 137/80 H 96 09/03/21 04:55 09/03/21 04:55 09/03/21 04:55 09/03/21 04:55 09/03/21 04:55 Oxygen Flow Rate (L/min) 1 Oxygen Delivery Method Room Air Weight: 103 lb 13.404 oz Body Mass Index (BMI) 18.1 Intake & Output: Intake and Output for Last 24 Hours 09/01/21 09/02/21 09/03/21 23:59 23:59 23:59 Intake Total 2695.83 / 2695.83 Output Total 600 / 600 Balance 2095.83 / 2095.83 Lab / Micro Data Result Diagrams: 09/02/21 04:50 09/02/21 04:50 Radiography Diagnostic Testing: Radiology Impression Knee X-Ray 09/02/21 06:03 IMPRESSION: Fluoroscopic guidance for external fixation device placement. Electronically Signed: Sunday Hsu MD (Bro[place]) at 14:36 EST , Service support , Physical Exam Narrative Physical Examination: General: awake, alert, oriented x 3 and cooperative, seated upright in the PCU bed, no acute distress, eating. Skin: normal color, normal turgor, no icterus, no cyanosis, status post ORIF fixator in place, dressing in place no drainage noted. HEENT: AT/NC, EOMI, PERRLA, MMM. Lungs: Diminished, greater bases, appropriate effort, no rales, ronchi or wheezing. Heart: Regular rate and rhythm; no gallop, rub audible. Abdomen: soft, thin habitus, NTTP, ND, normalized bowel sounds. Extremities: no cyanosis, no clubbing, distal pulses intact, left knee status post OR with dressing in place in left fixator evident. Neurological: patient awake, alert, oriented x 3; cognitive function intact; pupils equally reactive to light and accommodation; cranial nerves II-XII grossly normal, moving extremities except specifically limited left lower extremity movement given tibial fracture w/ OR s/p ex fix placement, able to wiggle toes and move ankle, sensation intact, strength accordingly moderately to severely global decreased. Psychiatric: affect appears improved, normal, notes some pain to LLE, no acute evidence of depressive or anxiety feelings. Assessment & Plan Assessment/Plan (1) Closed fracture of tibial plateau: QUALIFIERS: Encounter type: initial encounter Laterality: left Qualified Code(s): S82.142A - Displaced bicondylar fracture of left tibia, initial encounter for closed fracture (2) Fracture of fibula, proximal: QUALIFIERS: Encounter type: initial encounter Fracture type: closed Fracture morphology: unspecified fracture morphology Laterality: left Qualified Code(s): S82.832A - Other fracture of upper and lower end of left fibula, initial encounter for closed fracture PLAN: The patient is a 66 y/o F w/ PMHx: Anxiety and Depression, IBS, OA, Tobacco use, 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 Mata who presents to the [facility] ED on 09/01/21 w/ history of unfortunate injury noting that her dog ran into her lateral left knee at about 2 PM on day of presentation with difficulty bearing weight since that time and ongoing intractable severe 10 out of 10 pain. #1. General debility, L knee pain s/p injury/trauma w/ left knee resulted with a comminuted minimally displaced fracture of the lateral tibial plateau and proximal tibial metaphysis: Patient mid to medical surgical floor, orthopedic surgery consulted, OR 09/02/2020 with closed reduction left tibial plateau fracture with application of left knee spanning external fixator, initiation with 50:50 sodium peroxide:normal saline and dry sterile dressing changes daily with bacitracin at the pin base applied with daily dressing changes with wrap overlay with plan follow-up 1 week with orthopedic surgery. We will continue at discharge subcu Lovenox regimen for approximately 10 days with intention that it would need to be held approximate 24 hours prior to return to OR at the discretion of orthopedic surgery. Patient amenable and eager for discharge to home 09/03/2021, will await crutch training and initiate home needs set-up. #2. Elevated BP without hypertensive diagnosis: Patient with notably elevated blood pressure upon ED presentation, likely pain related, improved, PRN IV hydralazine. #3. History of small bowel carcinoid tumor: Diagnosed initially 04/21/2021 status post laparotomy with at that time necrotic right colon with mesenteric mass close to the SMA as well as a mass in the distal small intestine/ileum with right hemicolectomy and resection of the small bowel segment with anastomosis with pathology demonstrating carcinoid tumor. CT chest 05/04/2021 demonstrated right upper lobe nodule. Patient underwent octreotide scan 05/17/2021 which showed some activity in the abdomen and left supraclavicular area with follow-up PET/CT 06/08/2021 with no uptake in solitary lung nodule right upper lobe with patient initiated on Sandostatin LAR monthly with most recent visit 08/12/2021 with third cycle at that time. #4. Suspected underlying chronic COPD: Patient not on any routine regimen, encourage tobacco cessation, encourage I-S, head of bed and as needed albuterol if necessary. Recommend outpatient PFTs with PCP. #5. Tobacco Abuse: Encouraged cessation, inpatient consultation per RT, NR if desired. #6. Anxiety and depression: We will continue patient home alprazolam and paroxetine regimen. #7. DVT prophylaxis: SCDs, Lovenox. Charges/Coding Visit Charges Inpatient E&M: 80709 Subs Hosp L2
[2021-09-03] MEDS: oxyCODONE 5 MG Tablet PO ×2 (06:56→12:50)
[2021-09-03] MEDS: Acetaminophen 325 MG Tablet 650 MG PO ×2 (06:57→12:51)
[2021-09-03] MEDS: Enoxaparin 40 MG/0.4 ML Syringe SC (06:59)
[2021-09-03] MEDS: 0.9% Normal Saline 1,000 ML 125 ML IV (07:01)
--- NOTE | 2021-09-03 08:27 | PN.ORTHO_ITS ---
Subjective Subjective Patient seen and examined at bedside this morning. Pain is controlled. Denies any numbness or tingling. States she would like to go home if possible. Denies fevers, chills, nausea vomiting, chest pain or shortness of breath. Objective Data Objective Data Vital Signs: Vital Signs Temp Pulse Resp BP Pulse Ox 98.6 F 89 14 137/80 H 96 09/03/21 04:55 09/03/21 04:55 09/03/21 04:55 09/03/21 04:55 09/03/21 04:55 Oxygen Flow Rate (L/min) 1 Oxygen Delivery Method Room Air Weight: 103 lb 13.404 oz Body Mass Index (BMI) 18.1 Intake & Output: Intake and Output for Last 24 Hours 09/01/21 09/02/21 09/03/21 23:59 23:59 23:59 Intake Total 2695.83 / 2795.83 1020.83 / 1020.83 Output Total 600 / 900 700 / 700 Balance 2095.83 / 1895.83 320.83 / 320.83 Lab / Micro Data Result Diagrams: 09/02/21 04:50 09/02/21 04:50 Radiography Diagnostic Testing: Radiology Impression Knee X-Ray 09/02/21 06:03 IMPRESSION: Fluoroscopic guidance for external fixation device placement. Electronically Signed: Sunday Hsu MD (Bro[place]) at 14:36 EST , Service support , Physical Exam Narrative General - A&Ox3, NAD. VSS/AF Left lower extremity -pin site dressings show minimal sanguinous drainage. SILT Sural, Saphenous, SPN, DPN, Tibial N. distributions. DP, PT 2+. BCR. DF, PF, EHL 5/5. No calf TTP. Assessment & Plan Assessment/Plan (1) Closed fracture of tibial plateau: QUALIFIERS: Encounter type: initial encounter Laterality: left Qualified Code(s): S82.142A - Displaced bicondylar fracture of left tibia, initial encounter for closed fracture PLAN: POD#1 s/p placement of left knee spanning external fixator - Pain control-prescription for oxycodone placed in the chart. Recommending Tylenol as well as needed for pain. - Medicine following for medical management - PT/OT-nonweightbearing left lower extremity. - DVT PPX -Lovenox 40 mg subcu daily. Plan to continue DVT prophylaxis until 24 hours prior to definitive surgery, likely in the next 2 weeks or so depending on her swelling. Plan of care discussed with primary. - Case management - D/C planning - Patient stable for discharge from my standpoint once cleared by therapy and proper arrangements are made at home. - Home pin care should include cleaning pins sites with 50: 50 sodium peroxide: Normal saline with a Q-tip. Apply copious bacitracin ointment to the base of th e pin. Cover with gauze roll dressing -Plan to follow-up with me in the office in the next 3-7 days. -Please do not hesitate to call if any questions or concerns arise.
[2021-09-03 09:00] VITALS: BMI 18.1
[2021-09-03] MEDS: Paroxetine 20 MG Tablet PO (09:02)
[2021-09-03] MEDS: Polyethylene Glycol 3350 17 GM PACKET PO (09:02)
[2021-09-03 09:30] VITALS: BP 150/74; PULSE 80; RESP 16; TEMP 37.1; O2SAT 95
--- NOTE | 2021-09-03 10:24 | PCM.DC.SUM ---
Providers Date of Admission: 09/01/21 Primary Care Physician: Dr. Demarco Epstein, DO Consultations 09/01/21 18:14 Consult: Orthopedics Routine Consulting Provider: Alex Mcgowan Reason for Consult: Left proximal tibia and fibular fracture EMERGENT Consult: Yes MD Notified: Yes Date Notified: 09/01/21 Time Notified: 18:18 Method of Notification: Answering Service Reason For Visit: LEFT PROXIMAL TIBIA & FIBULAR FRACTURE Diagnosis Discharge Diagnosis (1) Closed fracture of tibial plateau: Status: Acute Code(s): S82.143A - Displaced bicondylar fracture of unspecified tibia, initial encounter for closed fracture Qualifiers: Encounter type: initial encounter Laterality: left Qualified Code(s): S82.142A - Displaced bicondylar fracture of left tibia, initial encounter for closed fracture (2) Fracture of fibula, proximal: Status: Acute Code(s): S82.839A - Other fracture of upper and lower end of unspecified fibula, initial encounter for closed fracture Qualifiers: Encounter type: initial encounter Fracture type: closed Fracture morphology: unspecified fracture morphology Laterality: left Qualified Code(s): S82.832A - Other fracture of upper and lower end of left fibula, initial encounter for closed fracture Plan: DISCHARGE DIAGNOSES: #1. General debility, L knee pain s/p injury/trauma w/ left knee resulted with a comminuted minimally displaced fracture of the lateral tibial plateau and proximal tibial metaphysis #2. Elevated BP without hypertensive diagnosis, Pain related #3. History of small bowel carcinoid tumor #4. Suspected underlying chronic COPD #5. Tobacco Abuse #6. Anxiety and depression Medications at Discharge Home Medications acetaminophen [Tylenol Extra Strength] 500 - 1,000 mg PO Q6H PRN 04/21/21 multivitamin 1 tab PO DAILY 05/26/21 alprazolam 0.25 mg tablet 0.25 mg PO TID PRN #90 tab 06/29/21 paroxetine HCl 20 mg tablet 20 mg PO DAILY #90 tab 06/29/21 oxycodone 5 mg PO Q6H 7 Days #28 tab 09/02/21 bacitracin zinc 1 applic TOPICAL DAILY 14 Days #28 g 09/03/21 enoxaparin 40 mg SUBCUT DAILY@0600 10 Days #4 ml 09/03/21 polyethylene glycol 3350 17 g PO DAILY 14 Days #14 ea 09/03/21 Hospital Course Procedures None Summary of Care Provided Minutes Spent on Discharge: 35 Hospital Course: The patient is a 66 y/o F w/ PMHx: Anxiety and Depression, IBS, OA, Tobacco use, 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 Mata who presented to the [facility] ED on 09/01/21 w/ history of unfortunate injury noting that her dog ran into her lateral left knee at about 2 PM on day of presentation with difficulty bearing weight since that time and ongoing intractable severe 10 out of 10 pain. ED evaluation with films and imaging notable for left comminuted minimally displaced fracture of the lateral tibial plateau and proximal tibial metaphysis. Patient admitted to the medical surgical floor, orthopedic surgery consulted, OR 09/02/2020 with closed reduction left tibial plateau fracture with application of left knee spanning external fixator, initiation with 50:50 sodium peroxide:normal saline and dry sterile dressing changes daily with bacitracin at the pin base applied with daily dressing changes with wrap overlay with plan follow-up 1 week with orthopedic surgery. Patient discharged on subcu Lovenox regimen for approximately 10 days with intention that it would need to be held approximate 24 hours prior to return to OR at the discretion of orthopedic surgery. Crutch training performed prior to discharge. Patient discharged to home with PCP and Orthopedic surgery follow-up. Weight / BMI Weight Weight: 103 lb 13.404 oz Body Mass Index (BMI) 18.1 ABG / Lab / Microbiology Data Result Diagrams: 09/02/21 04:50 09/02/21 04:50 Radiography Diagnostic Testing: Radiology Impression Knee X-Ray 09/02/21 06:03 IMPRESSION: Fluoroscopic guidance for external fixation device placement. Electronically Signed: Sunday Hsu MD ([place]) at 14:36 EST , Service support , Meaningful Use Info Meaningful Use Diagnoses (Choose all that apply): None applicable Discharge Plan Admission Admit Date/Time: 09/01/21 18:14 Primary Reason for Your Visit: Closed Fracture Tibial Plateau Attending Provider: Romi Daily Primary Care Provider: Demarco Epstein Consulting Providers: Alex Mcgowan Instructions Patient Instructions: Crutches Non Weight Bearing Dc, Fx External Fixation Ch Additional Instructions / Restrictions: DISCHARGE PLANS PER ORTHOPEDIC SURGERY AND LEFT LEG CARE: - PT/OT W/ nonweightbearing left lower extremity - Continue Lovenox 40 mg subcutaneous administered daily until ~ 24 hours prior to next surgery (2 week regimen rx given). Next dose would be due on 09/04/21. - Home pin care should include cleaning pins sites with 50:50 sodium peroxide: normal saline with a Q-tip. Apply copious bacitracin ointment to the base of the pin. Cover with gauze roll dressing. - May elevate extremity above heart to assist with swelling reduction. - Plan to follow-up with Orthopedic surgery in the office in the next 3-7 days. - Please do not hesitate to call Orthopedic surgery office earlier if any questions or concerns arise. Discharge Orders/Prescriptions Prescriptions: New oxycodone 5 mg Tablet 5 mg PO Q6H 7 Days Qty: 28 RF: 0 polyethylene glycol 3350 17 gram Powder In Packet 17 g PO DAILY 14 Days Qty: 14 RF: 0 bacitracin zinc 500 unit/gram Ointment 1 applic topical DAILY 14 Days Qty: 28 RF: 0 enoxaparin 40 mg/0.4 mL Syringe 40 mg subcut DAILY@0600 10 Days Qty: 4 RF: 0 Continued multivitamin Tablet 1 tab PO DAILY RF: 0 acetaminophen [Tylenol Extra Strength] 500 mg Tablet 500 - 1,000 mg PO Q6H PRN (Reason: Pain) RF: 0 paroxetine HCl [Paxil] 20 mg tablet 20 mg PO DAILY Qty: 90 RF: 1 alprazolam [Xanax] 0.25 mg tablet 0.25 mg PO TID PRN (Reason: anxiety) Qty: 90 RF: 1 Referrals / Follow Up: Demarco Epstein DO [Primary Care Provider] - None (Please follow-up with PCP within 3-5 days to review admission.) Alex Mcgowan DO [STAFF PHYSICIAN] - None (Please follow-up in 5-7 days.) Disposition Disposition (needs filled in before D/C Order can be placed): Home Health Service Charges/Coding Visit Charges OBSV E&M: 87226 Observation care discharge
--- NOTE | 2021-09-03 10:38 | CASEMGMT ---
Addendum entered by Qian Maravilla 09/03/21 11:00: Per [employer] rep, pt's co-pay is $47.56. Tamir FERREIRA CM Original Note: This RN CM to room with ROSAS form, explanation done-pt voices understanding, and signs ROSAS form. Original to chart and copy to pt. Pt voices no need for any further HHC/OP therapy at discharge and pt assured that therapy will be down to assist her with crutches, voices understanding. Pt states her and have no further concerns with going home at time of discharge. CM to follow for therapy recommendations and lovenox coverage/co-pay. Tamir FERREIRA CM
[2021-09-03] MEDS: BACITRACIN 15 GM Tube 1 APPLIC TOPICAL (11:07)
--- NOTE | 2021-09-03 12:34 | NURSING ---
patient and both watched lovenox injection video on [employer]. print out from [employer] also given on injection instructions. Pin care completed by this RN twice, verbalized understanding.
== END 2021-09-03 10:18 | disposition home health service (06) ==
LOC: ED 17:37 → PCU 18:25
PROVIDERS: Anesthesiology; Physician Assistant; Student in an Organized Health Care Education/Training Program; Admitting Provider Family Medicine; Emergency Provider Emergency Medicine; PCP Family Medicine; Visit Provider Family Medicine
PROC: (CPT 20692; principal; 2021-09-02 06:00)
DX: S82.142A Displaced bicondylar fracture of left tibia, initial encounter for closed fracture (principal); S82.832A Other fracture of upper and lower end of left fibula, initial encounter for closed fracture; W54.1XXA Struck by dog, initial encounter; Y93.K9 Activity, other involving animal care; Y92.89 Other specified places as the place of occurrence of the external cause; Y99.9 Unspecified external cause status; D3A.019 Benign carcinoid tumor of the small intestine, unspecified portion; F17.210 Nicotine dependence, cigarettes, uncomplicated; M17.12 Unilateral primary osteoarthritis, left knee; F41.9 Anxiety disorder, unspecified; F32.A Depression, unspecified; J44.9 Chronic obstructive pulmonary disease, unspecified; K58.9 Irritable bowel syndrome, unspecified; Z79.899 Other long term (current) drug therapy; R03.0 Elevated blood-pressure reading, without diagnosis of hypertension; R91.1 Solitary pulmonary nodule
CPT/HCPCS: 01462; 20692; 27752; 36415; 71045; 73560; 73590; 73700; 76000; 80048; 80053; 83735; 84100; 85025; 86850; 86900; 86901; 87635; 93005; 96361; 96365; 96366; 96367; 96372; 96375; 96376; 97162; 97166; 99218; 99251; 99284; 99406; C1713; J7030; U0005; A4216; G0378; G0463; J2405; U0003

== ENCOUNTER 2021-09-07 11:07 | Day surgery (SDC) | payer MEDICARE, SELFPAY ==
[2021-09-07] VITALS (13 sets, daily range): BP systolic 138–161; BP diastolic 70–93; PULSE 84–100; RESP 14–18; TEMP 36.3–37.5; O2SAT 91–99; BMI 18.8
[2021-09-07] MEDS: Lactated Ringers 1,000 ML 15 ML IV (12:06)
--- NOTE | 2021-09-07 13:08 | PCM.HP.BLA ---
History and Physical Date of Admission: 09/07/21 Patient seen and examined at bedside this morning. H&P reviewed in the paper chart. No changes from office visit yesterday 09/06/2021. Plan to proceed with surgery as planned left tibial plateau open reduction internal fixation, removal of knee spanning external fixator.
[2021-09-07] MEDS: Cefazolin 1 GM/50 ML BAG IV (13:27)
--- NOTE | 2021-09-07 13:30 | RAD_ITS ---
STUDY: X-RAY - LEFT KNEE REASON FOR EXAM: Female, 66 years old. Intraoperative digital documentation views of ORIF of proximal tibia. TECHNIQUE: 5 intraoperative digital documentation view(s) of the knee. COMPARISON: 09/01/2021. FINDINGS: 5 intraoperative digital documentation views show ORIF of the proximal tibia. RAD/Knee 1 or 2 Views IMPRESSION: Intraoperative digital documentation views as described. Electronically Signed: Gio Mathew MD at 9:54 EST , Service support ,
--- NOTE | 2021-09-07 16:52 | PCM.DC ---
Discharge Instructions Follow Up Care Test Results: Test results from this visit will be discussed in further detail at your follow-up appointment, if applicable. Discharge Plan Admission Primary Reason for Your Visit: Left tibial plateau fixation Attending Provider: Alex Mcgowan Primary Care Provider: Demarco Epstein Instructions Additional Instructions / Restrictions: Okay to remove dressing on postoperative day #2 and shower Nonweightbearing left lower extremity, range of motion as tolerated left knee Ice and elevate Place antibacterial ointment on wounds after dressing removal, okay to leave open to air if no drainage Restart Lovenox postoperative day #1, 09/08/2021 Discharge Orders/Prescriptions Prescriptions: Continued multivitamin Tablet 1 tab PO DAILY RF: 0 acetaminophen [Tylenol Extra Strength] 500 mg Tablet 500 - 1,000 mg PO Q6H PRN (Reason: Pain) RF: 0 oxycodone 5 mg Tablet 5 mg PO Q6H 7 Days Qty: 28 RF: 0 polyethylene glycol 3350 17 gram Powder In Packet 17 g PO DAILY 14 Days Qty: 14 RF: 0 bacitracin zinc 500 unit/gram Ointment 1 applic topical DAILY 14 Days Qty: 28 RF: 0 enoxaparin 40 mg/0.4 mL Syringe 40 mg subcut DAILY@0600 10 Days Qty: 4 RF: 0 paroxetine HCl [Paxil] 20 mg tablet 20 mg PO DAILY Qty: 90 RF: 1 alprazolam [Xanax] 0.25 mg tablet 0.25 mg PO TID PRN (Reason: anxiety) Qty: 90 RF: 1 Referrals / Follow Up: Demarco Epstein DO [Primary Care Provider] - Alex Mcgowan DO [STAFF PHYSICIAN] - Within 2 Weeks Disposition Disposition (needs filled in before D/C Order can be placed): Home, Self Care
--- NOTE | 2021-09-07 16:54 | PCM.OPRPT ---
Problems Associated Problem List Diagnoses (1) Closed fracture of tibial plateau: Report of Operation Date of Procedure: 09/07/21 Description of Surgical Findings:: Preoperative diagnosis: Left displaced closed bicolumnar tibial plateau fracture Postoperative diagnosis: Left displaced closed bicolumnar tibial plateau fracture Procedure: 1. Removal of left knee spanning external fixator 2. Open reduction internal fixation medial and lateral tibial plateau fractures Surgeon: Alex Mcgowan DO Airport Utility Worker: Ilia Pratt. JUNIOR ELECTRICAL ENGINEER Anesthesia: General LMA Anesthesiologist: Dr. Cannon Complications: None Drains: None Estimated blood loss: 300 cc Urinary output: None IV fluids: 1800 crystalloid Specimens: None Surgical implants: Sheeba AxSOS 3 titanium 4.0 mm proximal lateral tibial plate 4-hole, Proximal medial tibial plate 4-hole Indications: This is a 66-year-old female who sustained a left tibial plateau fracture the evening before after her dog collided with her knee. I performed a left knee spanning external fixator on 09/02/2021. She was discharged to home on postoperative day #1. I saw the patient in office yesterday 09/06/2021. Swelling was appropriate for surgical fixation. I recommended fixation of both the medial and lateral tibial plateaus. The risk, benefits, alternatives to the procedure reviewed with patient at length she agreed to proceed. Risks include but are not limited to bleeding, infection, loss of life or limb, neurovascular injury, DVT or PE, persistent pain, posttraumatic arthritis, need for additional surgery, stiffness, failure of orthopedic hardware. Patient expressed understanding his risk was proceed with surgery. Description of procedure: Patient arrived to the [facility] on the morning of 09/07/2021. She was seen by the same day surgery staff. Prior to her procedure, he was brought to the preoperative holding area. Identified the patient by his name, medical record number, and date of . The operative extremity was marked. Informed consent was again confirmed with the patient and all questions answered were to the patient satisfaction. Patient was also seen by the anesthesia staff prior to the procedure. At time of her procedure he was brought to the operative suite and positioned supine a standard operating table. General anesthesia was induced and laryngeal mask airway placed. After adequate anesthesia, we prepared the left lower extremity for surgery. We performed a bite Betadine scrub. We then performed a timeout with all parties in attendance agreement with the side, site, and operation to be performed. 1 g Ancef was administered prior to incision. I then remove the external fixator, deconstructing the device and then removing the pins. Pin sites for debrided with a curette. I applied a well-padded pneumatic tourniquet to the left upper thigh. We then prepped and draped the left lower extremity in normal, sterile orthopedic fashion with Betadine. I first turned my attention to the medial plateau. I exsanguinated the lower extremity with Esmarch bandage. Tourniquet was inflated to 275 mmHg remained up for approximately 110 minutes. I performed a standard posterior medial approach to the tibial plateau. I made a curvilinear incision centered over the posterior medial border of the tibial plateau, approximately 1 fingerbreadth posterior in line with the long axis of the tibia curving proximally around the metaphysis. Full-thickness skin flaps were developed. Identified the saphenous vein immediately deep to the skin and retracted anteriorly. Muscular fascia was then identified. I was able to visualize the saphenous nerve deep to the fascia. I made a poke incision with a 15 blade through the fascia just posterior to the nerve. I used scissors to transect the muscular investing fascia and to allow for retraction of the saphenous nerve anteriorly. I then encountered the pes anserinus tendons which were retracted anteriorly. The posterior medial border of the tibia was then identified and subperiosteal dissection was carried around the posterior border of the tibia. Fracture site was encountered. Provisional reduction was performed with knee extension and pointed reduction clamp. I then selected a precontoured periarticular plate from [employer]. This was placed according to the patient's anvik anatomy after near-anatomic reduction was performed. I then placed a apex screw to establish a buttress technique utilizing a cortical screw. This achieved better reduction. I placed another cortical screw distal to the first. I then secured the proximal segment with 2 locking screws in standard fashion. Fluoroscopic orthogonal images confirmed anatomic reduction of the medial column. Tourniquet was deflated. Hemostasis was excellent. Wound was packed with a lap sponge is I turned my attention laterally. We left the tourniquet down for the lateral approach. A standard anterolateral approach to the proximal tibia was performed with a lazy S incision centered over Tri's tubercle. Full-thickness skin incision was made approximately 15 cm in length. IT band and anterior compartment fascia was identified. I used Bovie cautery to subperiosteally elevate the fascial layer from the tibial plateau in line with the incision. I elevated posteriorly until the fibular head was palpated. I elevated anteriorly near the tibial tubercle. A small cuff of tissue was maintained from the tibial crest insertion of the fascia for later repair. I carefully elevated the IT band over top of the knee capsule. The capsule was identified. I performed a submeniscal arthrotomy to inspect the joint surface and meniscus. There is no meniscal tear identified. Joint surface demonstrated some central depression which was elevated through the fracture site with a [place] elevator to an anatomic articular surface. I tagged the capsule with 2-0 Ethibond suture for later repair. The sagittal split in the tibial plateau was then identified. I selected a appropriately sized lateral plateau plate from [employer] I first secured the plate to the bone with a cortical screw in the shaft. I placed two partially-threaded cancellous screws to reduced the fracture. There was poor purchase in these cancellous screws. I subsequently placed a pelvic reduction clamp across both columns to compress across the fracture site. While the fracture site was being compressed with a clamp, I replaced the partially-threaded screws with locking screws proximally. I then turned my attention to the diagonal screws/kickstand screw. I was able to thread in a locking guide into one of the screw holes. I drilled and measured an appropriately sized screw. While placing a locking screw, it was noted the screw head passed deep to the plate through the hole. It was later noted that this was not a locking screw hole, despite the locking guide apparently cross threading. I attempted to retrieve the screw. I was unsuccessful as it was deep to the near cortex. At this point, I would have had to remove the entire lateral column fixation which was achieving excellent purchase and my worry was that we would be unable to regain this amount of purchase in her osteopenic bone. The screw appeared to be stable, and is unlikely to migrate in the future. I made the decision to leave the screw intramedullary. I placed two additional cortical screws distally in the shaft. Final orthogonal fluoroscopic images were obtained. Wounds were copiously irrigated with irrisept and normal saline solutions. Fascia was closed with 0 Vicryl suture in both incisions. Dermis was reapproximated with buried 2-0 Vicryl suture. Skin finally reapproximated was kathryn. Sterile compression dressing was applied to these wounds. Mupirocin ointment was placed within the pin sites. A modified Arevalo dressing with Filipe wrap was applied from toes to proximal thigh. Patient tolerated procedure well without apparent complication. She was transferred to a rney and subsequently to PACU in stable condition. And adductor canal block was administered PACU as preoperatively planned by the anesthesia staff. Post Operative Plan: Weightbearing: Nonweightbearing left lower extremity Antibiotics: 1 g Ancef administered prior to incision, no indication for postoperative antibiotics DVT Prophylaxis: 40 mg subcutaneous Lovenox restarting tomorrow, early mobilization Ariza: None Dressing: Maintain x2 days, then okay to remove and shower. X-Rays: To be obtained in office in 2 weeks at follow-up. Pain Medication: Patient has oxycodone at home from previous hospitalization. Follow-up: Follow-up with me in 2 weeks in the office for wound check, staple removal, and x-rays.
[2021-09-07] MEDS: Mupirocin Ointment 22gm Tube 1 APPLIC (16:56)
[2021-09-07] MEDS: oxyCODONE 5 MG Tablet PO (19:36)
== END 2021-09-07 20:04 | disposition home or self-care (01) ==
LOC: SDC 11:09 → AC 11:11
PROVIDERS: PCP Family Medicine; Visit Provider Student in an Organized Health Care Education/Training Program
PROC: (CPT 20694; principal; 2021-09-07 12:45)
DX: S82.142A Displaced bicondylar fracture of left tibia, initial encounter for closed fracture (principal); W54.1XXA Struck by dog, initial encounter; Y93.9 Activity, unspecified; Y92.9 Unspecified place or not applicable; Y99.9 Unspecified external cause status; M19.90 Unspecified osteoarthritis, unspecified site; F32.9 Major depressive disorder, single episode, unspecified; Z79.899 Other long term (current) drug therapy; F32.A Depression, unspecified
CPT/HCPCS: 20694; 27536; 73560; 76000; C1713; J7120; J2405

== ENCOUNTER → 2021-09-28 14:19 | Outpatient (CLI) | payer MEDICARE, SELFPAY ==
--- NOTE | 2021-09-28 14:34 | VDLE_ITS ---
Reason For Study: Localized swelling RIGHT LEFT CFV is compressible, spontaneous, phasic, GSV is normal. competent and demonstrates normal POP V is compressible, spontaneous, phasic, augmentation. competent and demonstrates normal Procedure augmentation. This is a venous duplex using B-mode, color T/P Trunk is compressible. flow and spectral Doppler. PTV is compressible. Exam performed in department. FV mid-distal is compressible A preliminary report was called and/or faxed Acute deep vein thrombosis is noted in the to Stephanie at [facility], Lyric at PCP: CFV, FV prox, ProfundaV prox, PeroV and Lucian. SoleusV. VL/Venous Duplex US, Unilateral Interpretation Summary Acute deep venous thrombosis left common femoral, proximal femoral, profundofem oral, peroneal, and soleus veins. Patent and compressible left great saphenous vein Normal flow patterns right common femoral vein Ordering Physician: Alex Mcgowan Referring Physician: Edwardo Epstein M.D. Performed By: Qian Ferreira RVT
== END ==
PROVIDERS: PCP Family Medicine; Referring Provider Student in an Organized Health Care Education/Training Program; Visit Provider Student in an Organized Health Care Education/Training Program
DX: R22.42 Localized swelling, mass and lump, left lower limb (principal)
CPT/HCPCS: 93971

== ENCOUNTER 2021-11-08 13:09 | Outpatient (CLI) | payer OTHER, SELFPAY ==
--- NOTE | 2021-11-08 13:11 | CT_ITS ---
STUDY: CT CHEST, ABDOMEN T PELVIS WITH CONTRAST REASON FOR EXAM: Female, 66 years old. Assess response to treatment. 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 RADIATION DOSAGE (If Supplied By Facility): CTDIvol = ( 8.98 ) mGy, DLP = ( 475.02 ) mGycm TECHNIQUE: Transaxial imaging was performed following intravenous administration of Oral and amp; IV Readi-CAT and amp; 100mL Isovue-300. Individualized dose optimization techniques were used for this CT. COMPARISON: Comparison is made with prior study dated 05/04/2021. FINDINGS: CHEST Hyperinflation. Mild degree of emphysematous changes more prominent in the upper lobes. Stable 10 mm x 9 mm well-defined nodule in the anterior aspect of the right upper lobe as seen on axial image #59. There is no demonstrated pleural abnormality. There are calcifications of the coronary arteries. Normal mediastinum. Normal hilar regions. Normal unenhanced pulmonary arteries. There is atherosclerotic calcification of the aortic arch with tortuosity and elongation of the aortic arch and descending thoracic aorta. There are multi-level degenerative changes of the thoracic spine. Levoscoliosis. There is no demonstrated abnormality of the visualized upper abdomen. ABDOMEN Normal liver. Normal gallbladder and extrahepatic biliary system. Normal spleen. Normal pancreas. Normal bilateral adrenal glands. Normal right kidney. Normal left kidney. Normal visualized stomach. Normal small intestine. The patient is status post right hemicolectomy. The appendix is visualized and appears normal. There is diffuse atherosclerotic calcification of the abdominal aorta, without a demonstrated aneurysm. Normal inferior vena cava. Normal retroperitoneum. PELVIS Normal urinary bladder. The patient is status post hysterectomy. There is no pelvic fluid. There is no pelvic lymphadenopathy or mass lesion. Normal visualized pelvic arteries. Normal abdominal wall. There are diffuse degenerative changes of the visualized lumbar spine. CT/CT Chest, Abd, Pel w/Contrast IMPRESSION: Stable 10 mm x 9 mm well-defined nodule in the anterior aspect of the right upper lobe. Status post right hemicolectomy. Electronically Signed: Fili Sotne MD at 15:09 EST ,
== END 2021-11-08 23:59 | disposition short-term general hospital (02) ==
LOC: CT 13:10
PROVIDERS: PCP Family Medicine; Referring Provider Nurse Practitioner Family; Visit Provider Nurse Practitioner Family
DX: Z09 Encounter for follow-up examination after completed treatment for conditions other than malignant neoplasm (principal); D36.7 Benign neoplasm of other specified sites; R91.1 Solitary pulmonary nodule; Z90.49 Acquired absence of other specified parts of digestive tract; Z90.710 Acquired absence of both cervix and uterus
CPT/HCPCS: 71260; 74177; Q9967

== ENCOUNTER 2021-12-14 09:06 | Outpatient (CLI) | payer MEDICARE, SELFPAY ==
--- NOTE | 2021-12-14 09:08 | BI_ITS ---
MAMMOGRAPHY - BILATERAL SCREENING REASON FOR EXAM: Female, 66 years old. Routine annual screening examination. PERTINENT HISTORY: Mother with breast cancer. TECHNIQUE: Digital bilateral breast lisa (3D mammographic acquisition) in the CC and MLO projections. 2-D mediolateral oblique (MLO) and craniocaudad (CC) views of both breasts were obtained. CAD: Full Field Digital Mammography with Computer Added Detection was performed. COMPARISON: Comparison is made with prior study of 12/09/2020 and 12/09/2019. FINDINGS: Breast Composition: There are scattered areas of fibroglandular density. There are no dominant masses or suspicious calcifications. No other significant abnormalities are identified. There has been no significant change since the prior study. BI/SCRN MAMM (CAD)W/LISA BILAT IMPRESSION: Stable bilateral screening mammogram. Yearly follow-up mammogram recommended. (A) ASSESSMENT CATEGORY: BIRADS Category 1: Negative. A letter regarding these results will be sent to the patient by the facility within 30 days. Approximately 10% of breast cancers are not detected by mammography. A normal mammogram should not delay biopsy of a clinically suspicious abnormality. [id number] Electronically Signed: Fili Stone MD at 9:58 EST ,
--- NOTE | 2021-12-14 09:14 | BD_ITS ---
STUDY: DUAL ENERGY X-RAY ABSORPTIOMETRY / DXA REASON FOR EXAM: Female, 66 years old. Osteoporosis TECHNIQUE: Bone Mineral Density (BMD) measurements of lumbar spine and bilateral hips were obtained. COMPARISON: Comparison is made with prior examination dated 12/06/2018. FINDINGS: Lumbar Spine (L1-L4): g/cm2 (0.799) / T-score (-2.0) / Z-score (-0.1) Findings are suggestive of osteopenia with a moderate fracture risk. Left Femur Total: g/cm2 (0.555) / T-score (-3.2) / Z-score (-1.9) Left Femoral Neck: g/cm2 (0.538) / T-score (-2.8) / Z-score (-1.2) Right Femur Total: g/cm2 (0.619) / T-score (-2.6) / Z-score (-1.3) Right Femoral Neck: g/cm2 (0.590) / T-score (-2.3) / Z-score (-0.7) The T-Scores on the most recent prior examination were: Lumbar Spine (L1-L4): There has been worsening of bone density since the previous examination. Left Femur Total: which represents a worsening of 22.3%. Right Femur Total: which represents a worsening of 7%. BD/Dexa Bone Density Study IMPRESSION: The patient is considered osteoporotic as outlined below according to World Alexander Organization (WHO) criteria with a high fracture risk. There has been worsening of bone density since the previous examination. Reference Information: The T-score is the number of standard deviations above or below the standard which is normal for young adults at their peak bone mineral density. The World Health Organization (WHO) interprets the T-scores as follows: Above -1 Normal bone density Between -1 and -2.5 Osteopenia Equal to / or below -2.5 Osteoporosis As a practical clinical guideline, osteopenia may be graded as follows: Mild -1 through -1.5 Moderate -1.6 through -2.0 Severe -2.1 through -2.4 The Z-score is the number of standard deviations above or below age-matched controls. A Z-score of less than -1.5 would be considered abnormal. References: 1. NIH Osteoporosis and Related Bone Diseases www osteo.org 2. International Society for Clinical Densitometry www iscd.org 3. National Osteoporosis Foundation www nof.org Electronically Signed: Fili Stone MD at 9:43 EST ,
== END 2021-12-14 23:59 | disposition home or self-care (01) ==
LOC: OPBD 09:07
PROVIDERS: PCP Family Medicine; Visit Provider Family Medicine
DX: M81.0 Age-related osteoporosis without current pathological fracture (principal); Z12.31 Encounter for screening mammogram for malignant neoplasm of breast
CPT/HCPCS: 77063; 77067; 77080

== ENCOUNTER 2022-01-12 14:05 | Outpatient (CLI) | payer MEDICARE, SELFPAY ==
[2022-01-12 15:16] LABS: Vitamin D,25 Hydroxy 35.3 ng/mL
== END 2022-01-12 23:59 | disposition home or self-care (01) ==
LOC: BIMLAB 14:05
PROVIDERS: PCP Family Medicine; Referring Provider Family Medicine; Visit Provider Family Medicine
DX: M85.80 Other specified disorders of bone density and structure, unspecified site (principal)
CPT/HCPCS: 36415; 82306

== ENCOUNTER → 2022-02-02 | Outpatient (CLI) | payer MEDICARE, SELFPAY ==
--- NOTE | 2022-02-02 11:58 | EKG12_ITS ---
Test Reason : DIZZINESS Blood Pressure : / mmHG Vent. Rate : 056 BPM Atrial Rate : 056 BPM P-R Int : 180 ms QRS Dur : 064 ms QT Int : 430 ms P-R-T Axes : 029 -66 042 degrees QTc Int : 414 ms Sinus bradycardia Left axis deviation Low voltage QRS (Limb Leads) Inferior FL, age undetermined, cannot be excluded Abnormal ECG Confirmed by CASPER CORNELL, JUANITO ([id number]), television news video editor ZACHERY RODRIGUEZ ([id number]) on 02/03/2022 9:06:29 AM Referred By: CHANTALE SINGLETARY Confirmed By:JUANITO SHIRLEY MD
== END | disposition home or self-care (01) ==
LOC: PSN 11:57
PROVIDERS: PCP Family Medicine; Visit Provider Nurse Practitioner Family
DX: R42 Dizziness and giddiness (principal)
CPT/HCPCS: 93005

== ENCOUNTER → 2022-03-02 | Outpatient (CLI) | payer MEDICARE, SELFPAY ==
--- NOTE | 2022-03-02 07:42 | CT_ITS ---
EXAM: CT CHEST, ABDOMEN AND PELVIS WITH INTRAVENOUS CONTRAST CLINICAL INDICATION: restaging TECHNIQUE: Helically acquired images were obtained of the chest, abdomen and pelvis with intravenous contrast. This CT exam was performed using one or more of the following dose reduction techniques: automated exposure control, adjustment of the mA and/or kV according to patient size, and/or use of iterative reconstruction technique. This report was created using mParticle report generation technology. CONTRAST: IV 100mL Isovue-300 COMPARISON: 11/08/2021 FINDINGS: CHEST: LUNGS AND PLEURAL SPACES: Stable 11 mm right middle lobe pulmonary nodule. Stable bilateral pulmonary emphysema. No pleural effusion or thickening. No pneumothorax. HEART: Mild/moderate coronary artery calcification. Heart size is normal. No pericardial effusion. MEDIASTINUM: Unremarkable. No mediastinal or hilar adenopathy. Esophagus is unremarkable. No hiatal hernia. THYROID: Unremarkable. No thyroid lesions. ABDOMEN: LIVER: Unremarkable. Homogeneous. No focal mass. GALLBLADDER AND BILE DUCTS: Unremarkable. No calcified gallstones. No gallbladder distention or wall edema. No intra- or extrahepatic biliary ductal dilation. PANCREAS: Unremarkable. No focal cystic or solid mass. SPLEEN: Unremarkable. Normal size without focal cystic or solid mass. ADRENALS: Unremarkable. No nodules. KIDNEYS AND URETERS: A 3 mm nonobstructive stone noted within the upper pole of the right kidney. Normal renal size and position. STOMACH AND BOWEL: Surgical changes of right colectomy with ileotransverse colostomy. Small bowel anastomosis also noted within the right lower quadrant. No stomach or bowel distention. PELVIS: APPENDIX: See above. BLADDER: Unremarkable. REPRODUCTIVE: Uterus is absent. CHEST, ABDOMEN and PELVIS: INTRAPERITONEAL SPACE: Unremarkable. No ascites or other fluid collection. No free air. BONES/JOINTS: Unremarkable. No suspicious lytic or blastic abnormality. SOFT TISSUES: Unremarkable. No discrete abdominal or pelvic wall hernia. VASCULATURE: Unremarkable. Aorta is non-dilated. No aortic dissection. No obvious central pulmonary embolism although this study was not performed with the pulmonary embolism protocol. LYMPH NODES: Mildly prominent retroperitoneal lymph nodes are identified adjacent to the aorta and inferior vena cava with short axis diameter of 11. Mesenteric lymph nodes are enlarged largest one measuring 2.9 x 2.1 cm within the lower abdomen highly suspicious for metastasis.. CT/CT Chest, Abd, Pel w/Contrast IMPRESSION: 1. Stable 11 mm right middle lobe coronary nodule. 2. Pulmonary emphysema. 3. Enlarged mesenteric lymph nodes largest one measuring 2.9 x 2.1 cm highly suspicious for metastatic disease. 4. Nonspecific mildly prominent retroperitoneal lymph nodes with short axis diameter of 11 mm. Electronically Signed: Rudy Garrido MD at 16:53 EDT ,
== END | disposition home or self-care (01) ==
LOC: CT 07:41
PROVIDERS: PCP Family Medicine; Visit Provider Nurse Practitioner Family
DX: C18.9 Malignant neoplasm of colon, unspecified (principal)
CPT/HCPCS: 71260; 74177; Q9967

== ENCOUNTER → 2022-08-16 | Outpatient (CLI) | payer MEDICARE, SELFPAY ==
--- NOTE | 2022-08-16 08:13 | CT_ITS ---
STUDY: CT CHEST, ABDOMEN T PELVIS WITH CONTRAST REASON FOR EXAM: Female, 67 years old. SMALL INTESTINE CA- IV ONLY RADIATION DOSAGE (If Supplied By Facility): CTDIvol = ( 8.78 ) mGy, DLP = ( 599.98 ) mGycm TECHNIQUE: Transaxial imaging was performed following intravenous administration of IV 100mL Isovue-300. Multiplanar coronal and sagittal images were reformatted. Individualized dose optimization techniques were used for this CT. COMPARISON: Comparison is made with prior examination dated 03/02/2022. FINDINGS: CHEST Stable 9 mm nodular density in the posterior aspect right middle lobe. There is no demonstrated pleural abnormality. There are calcifications of the coronary arteries. Normal mediastinum. Normal hilar regions. Normal unenhanced pulmonary arteries. Normal aorta arch and descending thoracic aorta. Normal osseous structures. There is no demonstrated abnormality of the visualized upper abdomen. ABDOMEN There is decreased attenuation of the liver consistent with steatosis. Normal gallbladder and extrahepatic biliary system. Normal spleen. Normal pancreas. Normal bilateral adrenal glands. Stable tiny calculus in the upper pole calyx of the right kidney. Fullness of the right renal pelvis. 6 mm cyst is seen in the anterior midportion of the left kidney. Normal visualized stomach. Normal small intestine. The patient is status post right hemicolectomy. A suture line is also seen in the mid small bowel. The appendix is visualized and appears normal. There is diffuse atherosclerotic calcification of the abdominal aorta. Stable dilatation of the proximal abdominal aorta with a transverse dimension of 2.9 cm. Normal inferior vena cava. There is borderline retroperitoneal lymphadenopathy with enlarged nodes no greater than 10mm in the short axis diameter. Stable enlargement of the mesenteric lymph nodes in the root of the mesentery. Normal abdominal wall. There are diffuse degenerative changes of the visualized lumbar spine. PELVIS Normal urinary bladder. Patient is status post hysterectomy. There is no pelvic fluid. There is no pelvic lymphadenopathy or mass lesion. There is diffuse atherosclerotic calcification of the pelvic arteries. CT/CT Chest, Abd, Pel w/Contrast IMPRESSION: Stable examination. Electronically Signed: Fili Stone MD at 11:27 EST ,
== END | disposition home or self-care (01) ==
LOC: CT 08:08
PROVIDERS: PCP Family Medicine; Referring Provider Internal Medicine Medical Oncology; Visit Provider Internal Medicine Medical Oncology
DX: C17.9 Malignant neoplasm of small intestine, unspecified (principal)
CPT/HCPCS: 71260; 74177; Q9967

== ENCOUNTER → 2022-12-15 | Outpatient (CLI) | payer MEDICARE, SELFPAY ==
--- NOTE | 2022-12-15 09:40 | BI_ITS ---
MAMMOGRAPHY - BILATERAL SCREENING REASON FOR EXAM: Female, 67 years old. Routine annual screening examination. PERTINENT HISTORY: Mother with breast cancer. TECHNIQUE: Digital bilateral breast lisa (3D mammographic acquisition) in the CC and MLO projections. 2-D mediolateral oblique (MLO) and craniocaudad (CC) views of both breasts were obtained. CAD: Full Field Digital Mammography with Computer Added Detection was performed. COMPARISON: Comparison is made with prior study dated December 14, 2021 and December 09, 2020. FINDINGS: Breast Composition: There are scattered areas of fibroglandular density. Stable 4.7 mm calcifying fibroadenoma in the upper slightly lateral aspect of the left breast. Stable calcified fibroadenoma in the medial retroareolar region of the right breast. There are no dominant masses or suspicious calcifications. No other significant abnormalities are identified. There has been no significant change since the prior study. BI/SCRN MAMM (CAD)W/LISA BILAT IMPRESSION: Stable bilateral screening mammogram. Yearly follow-up mammogram recommended. (A) ASSESSMENT CATEGORY: BIRADS Category 2: Benign. A letter regarding these results will be sent to the patient by the facility within 30 days. Approximately 10% of breast cancers are not detected by mammography. A normal mammogram should not delay biopsy of a clinically suspicious abnormality. [id number] Electronically Signed: Fili Stone MD at 11:02 [facility] ,
== END | disposition home or self-care (01) ==
LOC: OPBI 09:38
PROVIDERS: PCP Family Medicine; Referring Provider Family Medicine; Visit Provider Family Medicine
DX: Z12.31 Encounter for screening mammogram for malignant neoplasm of breast (principal)
CPT/HCPCS: 77063; 77067

== ENCOUNTER → 2023-02-27 | Outpatient (CLI) | payer MEDICARE, SELFPAY ==
--- NOTE | 2023-02-27 07:37 | CT_ITS ---
STUDY: CT CHEST, ABDOMEN T PELVIS WITH CONTRAST REASON FOR EXAM: Female, 67 years old. carcinoid tumor of small intestine; on octreotide RADIATION DOSAGE (If Supplied By Facility): CTDIvol = ( 11.94 ) mGy, DLP = ( 695.87 ) mGycm TECHNIQUE: Transaxial imaging was performed following intravenous administration of Oral and amp;amp; IV Readi-CAT and amp;amp; 100mL Isovue-300. Individualized dose optimization techniques were used for this CT. COMPARISON: August 16, 2022. FINDINGS: CHEST Lungs are clear of infiltration. There is a noncalcified nodule in the right upper lobe measuring approximately 1.15 x 1 cm.. There is no demonstrated pleural abnormality. Normal heart and pericardium. There is multivessel coronary artery calcification. Normal mediastinum. Normal hilar regions. Normal unenhanced pulmonary arteries. Mild atherosclerotic change of the aorta without evidence for aneurysm. Dorsal spine demonstrates degenerative change and mild multilevel chronic compression deformities. . ABDOMEN . Mild nonspecific fatty infiltrated liver without mass or bile duct dilatation. Normal gallbladder and extrahepatic biliary system. Normal spleen. Normal pancreas. Normal bilateral adrenal glands. Tiny nonobstructing right renal calculus. No evidence for renal obstruction.. Normal left kidney. Normal visualized stomach. No evidence for small bowel obstruction. . There are multiple mildly enlarged mesenteric nodes. Atherosclerotic changes of the aorta with mild aneurysmal dilatation measuring approximately 2.9 cm. Normal inferior vena cava. Normal retroperitoneum. Normal abdominal wall.. PELVIS Normal urinary bladder. Uterus not visualized status post hysterectomy Normal visualized small intestine. Postsurgical changes status post right hemicolectomy and small bowel resection There is no pelvic fluid. There is no pelvic lymphadenopathy or mass lesion. Normal visualized pelvic arteries. Normal abdominal wall. Lumbar spine demonstrates degenerative changes CT/CT Chest, Abd, Pel w/Contrast IMPRESSION: Persistent noncalcified nodule in the right upper lobe relatively stable since previous exam with perhaps minimal increase in size.. No new nodules or adenopathy Persistent lesion in the mesentery likely representing adenopathy also stable in appearance since previous exam. No hepatic or bone metastasis No significant changes since previous study.. Electronically Signed: Cesar Miller MD at 19:08 EDT ,
== END | disposition home or self-care (01) ==
LOC: CT 07:35
PROVIDERS: PCP Family Medicine; Referring Provider Nurse Practitioner Family; Visit Provider Nurse Practitioner Family
DX: C17.9 Malignant neoplasm of small intestine, unspecified (principal); D3A.012 Benign carcinoid tumor of the ileum
CPT/HCPCS: 71260; 74177; Q9967

== ENCOUNTER 2023-09-14 07:02 | Outpatient (CLI) | payer MEDICARE, SELFPAY ==
--- NOTE | 2023-09-14 07:28 | CT_ITS ---
STUDY: CT CHEST, ABDOMEN T PELVIS WITH CONTRAST REASON FOR EXAM: Female, 68 years old. ASSESS TREATMENT-CARCINOID TUMOR-IV ONLY RADIATION DOSAGE (If Supplied By Facility): CTDIvol = ( 9.49 ) mGy, DLP = ( 552.51 ) mGycm TECHNIQUE: Transaxial imaging was performed following intravenous administration of IV 100mL Isovue-300. Multiplanar coronal and sagittal images were reformatted. Individualized dose optimization techniques were used for this CT. COMPARISON: Comparison is made with prior study dated February 27, 2023. FINDINGS: CHEST Stable right apical scarring. Stable 9 mm noncalcified nodule in the posterior right upper lobe. There is no demonstrated pleural abnormality. There are calcifications of the coronary arteries. Normal mediastinum. Normal hilar regions. Normal unenhanced pulmonary arteries. Tortuous descending thoracic aorta. There are multi-level degenerative changes of the thoracic spine. Increased kyphosis. There is no demonstrated abnormality of the visualized upper abdomen. ABDOMEN Normal liver. The gallbladder is distended. Normal spleen. Normal pancreas. Normal bilateral adrenal glands. Tiny nonobstructive right intrarenal calculus. Normal left kidney. Normal visualized stomach. Anastomotic sutures are seen in the mid small bowel loops. Status post right hemicolectomy. The appendix is visualized and appears normal. Atherosclerotic calcification of the abdominal aorta with mild dilatation of the abdominal aorta with a transverse dimension of 2.9 cm. Normal inferior vena cava. Normal retroperitoneum. Normal abdominal wall. Normal osseous structures. PELVIS Normal urinary bladder. The patient is status post hysterectomy. There is no pelvic fluid. There is no pelvic lymphadenopathy or mass lesion. There is diffuse atherosclerotic calcification of the pelvic arteries. CT/CT Chest, Abd, Pel w/Contrast IMPRESSION: Stable examination. Electronically Signed: Fili Stone MD at 14:23 EST ,
[2023-09-14 07:52] LABS: Absolute Neutrophil Count 4.7 X10^3/uL (2.0-7.7); Basophil# 0.07 X10^3/uL; Eosinophil# 0.04 X10^3/uL; Eosinophils% 0.6 % (0-5); Hematocrit 43.7 % (37-47); Hemoglobin 13.8 g/dL (12.0-15.0); Lymphocyte % 27.6 % (19-41); Mean Corp Hgb Conc 31.6 g/dL (32-36); Mean Corpuscular Hgb 30.5 pg (27.0-32.0); Mean Corpuscular Volume 96.7 fL (81-99); Monocyte# 0.42 X10^3/uL; Monocyte% 5.8 % (0-10); NRBC Flagged by Analyzer 0 % (0-5); Neutrophil % 64.7 % (47-70); Platelet Count 221 K/mm3 (150-450); RBC Distribution Width CV 13.4 % (11.6-14.6); RBC Distribution Width SD 48.4 fl (35.1-43.9); Red Blood Count 4.52 M/mm3 (4.2-5.4); White Blood Count 7.3 K/mm3 (4.4-11.0)
[2023-09-14 08:24] LABS: ALB/GLOB Ratio 0.9 RATIO (0.9-2.4); AST(SGOT) 15 U/L (15-37); Alanine Aminotransfer ALT/SGPT 23 U/L (13-56); Albumin, Serum 3.6 g/dL (3.2-5.0); Alkaline Phosphatase 70 U/L (45-117); Anion Gap 3 (5-15); BUN 9 mg/dL (7-18); BUN/Creat Ratio 14.5 RATIO (10-20); Calcium,Total 8.5 mg/dL (8.5-10.1); Chloride 104 mmol/L (98-107); Creatinine, Serum 0.62 mg/dL (0.55-1.02); EST Glomerular Filtration Rate 101 mL/min (>60); Est Glom Filt Rate - Afr Amer 123 mL/min (>60); Globulin 3.8 g/dL (2.2-4.2); Glucose 188 mg/dL (74-106); LDH 198 U/L (84-246); Protein, Total 7.4 g/dL (6.4-8.2); Sodium Level 135 mmol/L (136-145)
[2023-09-19 07:08] LABS: Chromogranin A 105.5 ng/mL (0.0-101.8)
== END 2023-09-14 23:59 | disposition home or self-care (01) ==
LOC: CT 07:03
PROVIDERS: PCP Family Medicine; Referring Provider Internal Medicine Medical Oncology; Visit Provider Internal Medicine Medical Oncology
DX: D3A.019 Benign carcinoid tumor of the small intestine, unspecified portion (principal); R91.1 Solitary pulmonary nodule; Z79.899 Other long term (current) drug therapy
CPT/HCPCS: 36415; 71260; 74177; 80053; 83615; 85025; 86316; Q9967

== ENCOUNTER → 2023-12-18 | Outpatient (CLI) | payer MEDICARE, SELFPAY ==
--- NOTE | 2023-12-18 07:09 | BI_ITS ---
MAMMOGRAPHY - BILATERAL SCREENING REASON FOR EXAM: Female, 68 years old. Routine annual screening examination. PERTINENT HISTORY: Mother with breast cancer. TECHNIQUE: Digital bilateral breast lisa (3D mammographic acquisition) in the CC and MLO projections. 2-D mediolateral oblique (MLO) and craniocaudad (CC) views of both breasts were obtained. CAD: Full Field Digital Mammography with Computer Added Detection was performed. COMPARISON: Comparison is made with prior study December 15, 2022 December 14, 2021. FINDINGS: Breast Composition: There are scattered areas of fibroglandular density. Stable 4.7 mm calcifying fibroadenoma in the upper slightly lateral aspect of the left breast. Stable calcified fibroadenoma in the medial retroareolar region of the right breast. No other significant abnormalities are identified. There has been no significant change since the prior study. BI/SCRN MAMM (CAD)W/LISA BILAT IMPRESSION: Stable bilateral screening mammogram. Yearly follow-up mammogram recommended. (A) ASSESSMENT CATEGORY: BIRADS Category 2: Benign. A letter regarding these results will be sent to the patient by the facility within 30 days. Approximately 10% of breast cancers are not detected by mammography. A normal mammogram should not delay biopsy of a clinically suspicious abnormality. [id number] Electronically Signed: Fili Stone MD at 8:38 EDT ,
== END | disposition home or self-care (01) ==
LOC: OPBI 07:09
PROVIDERS: PCP Family Medicine; Referring Provider Family Medicine; Visit Provider Family Medicine
DX: Z12.31 Encounter for screening mammogram for malignant neoplasm of breast (principal)
CPT/HCPCS: 77063; 77067

== ENCOUNTER 2024-03-11 13:45 | Emergency (ER) | payer MEDICARE, SELFPAY ==
[2024-03-11 13:46] VITALS: BP 157/100; PULSE 80; RESP 18; TEMP 36.7; O2SAT 97; BMI 21.9
--- NOTE | 2024-03-11 14:16 | CT_ITS ---
STUDY: CT ABDOMEN AND PELVIS WITH CONTRAST REASON FOR EXAM: Female, 69 years old. Upper abdominal pain. History of prior partial colectomy. RADIATION DOSAGE (If Supplied By Facility): CTDIvol = ( 12.22 ) mGy, DLP = ( 347.65 ) mGycm TECHNIQUE: Transaxial images were obtained from the dome of the diaphragm to the symphysis pubis without oral contrast. IV 100mL Isovue-370 was administered. Sagittal and coronal images were reconstructed. Individualized dose optimization techniques were used for this CT. COMPARISON: Comparison is made with prior study dated April 21, 2021. FINDINGS: The visualized lung bases are unremarkable. Coronary artery calcification. Normal liver. The gallbladder is distended. Normal spleen. Normal pancreas. Normal bilateral adrenal glands. Normal right kidney. Normal left kidney. Normal visualized stomach. Normal small intestine. The patient is status post right hemicolectomy. There is diffuse atherosclerotic calcification of the abdominal aorta, without a demonstrated aneurysm. Normal inferior vena cava. Normal retroperitoneum. Normal urinary bladder. The patient is status post hysterectomy. Surgical sutures are seen in the right lower quadrant. Normal abdominal wall. There are diffuse degenerative changes of the visualized lumbar spine. CT/Abdomen/Pelvis W IV Cont ONLY IMPRESSION: Patient is status post right hemicolectomy. Distended gallbladder. Electronically Signed: Fili Stone MD at 15:15 EDT ,
--- NOTE | 2024-03-11 14:18 | EDS_ITS ---
HPI HPI - GI History of Present Illness Chief Complaint: Abd Pain Narrative Narrative: 69-year-old female past medical history of remote colon resection from reported colon twisting presents with epigastric pain that she has had since 7:00 in the morning, almost 7 hours ago. She states she had her breakfast of Cheerios this morning around 7:00 started getting epigastric pain. She told her she did not feel well. After her second dose of Pepto-Bismol, she vomited. She denies any problems with bowel movements, no diarrhea or constipation. She had a normal bowel movement today. No exacerbating or alleviating factors. Of note, she and her states that at the time of her colon resection she was found to have a carcinoid tumor of her small intestines for which she receives an injection monthly. She gets CAT scans every 6 months, and has not had any complications. She is concerned because usually when her doctor presses on her epigastric area, she does not have pain, but today she does. 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 Osteopenia Depression Anxiety IBS (irritable bowel syndrome) Arthritis Home Medications ?Medication ?Instructions ?Recorded ?Last Taken ?Type acetaminophen 500 mg tablet 500 - 1,000 mg PO Q6H PRN Pain 04/21/21 09/07/21 History (Tylenol Extra Strength) multivitamin 1 tab PO DAILY 05/26/21 08/31/21 History cholecalciferol (vitamin D3) 10 10 mcg PO DAILY 10/14/21 Unknown History mcg (400 unit) capsule denosumab 60 mg/mL subcutaneous 60 mg subcut [id number] #1 mL 01/26/23 Unknown Rx syringe (Prolia) magnesium glycinate 100 mg tablet 100 mg PO DAILY #90 tabs 04/19/23 Unknown Rx alprazolam 0.25 mg tablet (Xanax) 0.25 mg PO TID PRN anxiety #90 tabs 01/24/24 Unknown Rx escitalopram oxalate 10 mg tablet 10 mg PO DAILY #90 tabs 01/24/24 Unknown Rx (Lexapro) omeprazole 40 mg capsule,delayed 40 mg PO DAILY #30 caps 03/11/24 Unknown Rx release Allergy/AdvReac Type Severity Reaction Status Date / Time ibuprofen (From Advil) AdvReac Intermediate stomach Verified 03/11/24 13:45 problems Family History Mother Breast cancer Father Cancer Surgical History History of right hemicolectomy (04/21/21) History of partial hysterectomy History of colonoscopy Social History Smoking Status: Current every day smoker tobacco type: cigarettes alcohol intake: current alcohol intake frequency: holidays/special occasions only Alcohol type: wine substance use type: does not use what type of physical activity do you participate in: walking and bicycling ROS ROS ED ROS Narrative Constitutional: No fever, no chills. HEENT: No sore throat. No neck pain. No loss of vision. No rhinorrhea. Cardiovascular: No chest pain. No palpitations. No pedal edema. Respiratory: No cough, no shortness of breath. Abdominal: Epigastric abdominal pain. Positive nausea and vomiting after Pepto- Bismol. No diarrhea or constipation, last bowel movement today. Genitourinary: No dysuria. No hematuria. Musculoskeletal: No myalgias. No arthralgias. Neurologic: No headaches. No dizziness. No lightheadedness. Skin: No rash. No change in color. Psychiatric: No depression. No anxiety. EXAM Physical Exam Narrative Exam Narrative: Afebrile. Vital signs noted. HEENT: Normocephalic. Atraumatic. PERRL, EOMI. Neck soft and supple. No point tenderness or step off. Cardiovascular: Regular rate and rhythm. No murmurs, rubs, or gallops appreciated. Respiratory: No tachypnea. Lungs clear to auscultation bilaterally. Gastrointestinal: Abdomen soft, positive tenderness in epigastrium, negative Choudhury sign, with normoactive bowel sounds. No rebound or guarding. Neurological: Awake. Alert. Nonfocal, nonlateralizing. Skin: No rash. Normal color. No pallor. Musculoskeletal: No pedal edema. Full range of motion extremities. Const Vital Signs: 03/11/24 13:46 03/11/24 15:00 03/11/24 16:00 Temperature 98.1 F 98.0 F 98.2 F Temperature Source Temporal Oral Oral Pulse Rate 80 69 69 Respiratory Rate 18 19 H 19 H Blood Pressure 157/100 H 177/84 H 172/95 H Blood Pressure Mean 119 115 120 Pulse Ox 97 97 97 Oxygen Delivery Method Room Air Room Air Room Air 03/11/24 17:00 Temperature 98.1 F Temperature Source Temporal Pulse Rate 61 Respiratory Rate 19 H Blood Pressure 148/93 H Blood Pressure Mean 111 Pulse Ox 97 Oxygen Delivery Method Room Air MDM MDM MDM Narrative Medical decision making narrative: In the differential diagnosis is pancreatitis versus transverse colitis/diverticulitis versus obstruction versus cholecystitis. She may also have peptic ulcer disease or gastritis. Given her history of carcinoid tumor, I do feel CT imaging is indicated along with basic laboratory work including CBC, CMP, and lipase. She was administered a bolus of normal saline 1 L intravenously and morphine and ondansetron for pain and nausea. I reviewed her laboratory work and she has normal white count of 9.0, hemoglobin normal at 13.5, hematocrit 42.1, platelet count normal at 214. Sodium slightly low at 135 which I think is nonspecific and she was bolused normal saline. Potassium normal at 4.0, BUN of 11 and creatinine 0.64. Glucose is appropriately elevated at 126 with a normal anion gap of 6. Lipase is normal at 28 so I doubt pancreatitis. CT of the abdomen and pelvis was obtained and I reviewed the radiology report which shows no evidence of obstruction. She does have a distended gallbladder. In order to rule out cholecystitis or choledocholithiasis, even though her laboratory work is grossly unremarkable and she does not have elevated LFTs or lipase, gallbladder was obtained and I reviewed the radiology report which comments on cholelithiasis, but no evidence of pericholecystic fluid, no dilation of bile ducts. Upon repeat examination at approximately 1720, she states her pain is improving. She did give history that remotely she had a history of peptic ulcers. She has seen Dr. Sal in the past with gastroenterology for colonoscopy. At this point in time, she may have gastritis versus peptic ulcer disease. I will start her on omeprazole 40 mg daily, and she was told to follow-up with gastroenterology for possible upper endoscopy. Given her negative workup today for an emergent process, I feel she can be discharged safely home with follow-up. Return instructions to the emergency department were reviewed. Disposition is discharged home in stable condition. History & Record Review Discussion w/independent historian: Patient and Family () Lab Data Attestation: I reviewed the patient's lab results. Labs: Laboratory Results - last 24 hr 03/11/24 14:21 WBC 9.0 RBC 4.47 Hgb 13.5 Hct 42.1 MCV 94.2 MCH 30.2 MCHC 32.1 RDW Std Deviation 46.3 H RDW Coeff of Reece 13.3 Plt Count 214 MPV 8.7 Immature Gran % (Auto) 0.300 Neut % (Auto) 72.4 H Lymph % (Auto) 18.8 L [place] % (Auto) 7.3 Eos % (Auto) 0.4 Baso % (Auto) 0.8 Absolute Neuts (auto) 6.5 Absolute Lymphs (auto) 1.68 Nucleated RBC % 0 Sodium 135 L Potassium 4.0 Chloride 102 Carbon Dioxide 27.0 Anion Gap 6 BUN 11 Creatinine 0.64 Estim Creat Clear Calc 54.90 Est GFR (MDRD) Af Amer 119 Est GFR (MDRD) Non-Af 99 BUN/Creatinine Ratio 17.3 Glucose 126 H Calcium 9.4 Total Bilirubin 0.30 AST 15 ALT 18 Alkaline Phosphatase 63 Total Protein 7.4 Albumin 3.8 Globulin 3.6 Albumin/Globulin Ratio 1.1 Lipase 28 Radiography Diagnostic Testing: Clinical Impression(s) from Imaging Studies Abdomen/Pelvis CT 03/11/24 14:16 IMPRESSION: Patient is status post right hemicolectomy. Distended gallbladder. Electronically Signed: Fili Stone MD at 15:15 EDT , Gallbladder Ultrasound 03/11/24 16:01 IMPRESSION: Cholelithiasis. No significant biliary dilatation. Electronically Signed: Timbo Ponce DO at 17:06 EDT , Discharge Plan Triage Chief Complaint: Abd Pain ED Provider: Bogdan Manuel Dx/Rx/DC Orders Clinical Impression: Epigastric pain, History of peptic ulcer disease Instructions: ED Gastritis Ulcer No Abx, ED Epigastric Pain Uncertain Cause Prescriptions: New omeprazole 40 mg capsule,delayed release(DR/EC) 40 mg PO DAILY Qty: 30 0RF No Action multivitamin Tablet 1 tab PO DAILY cholecalciferol (vitamin D3) 10 mcg (400 unit) capsule 10 mcg PO DAILY magnesium glycinate 100 mg tablet 100 mg PO DAILY Qty: 90 2RF alprazolam [Xanax] 0.25 mg tablet 0.25 mg PO TID PRN (Reason: anxiety) Qty: 90 1RF escitalopram oxalate [Lexapro] 10 mg tablet 10 mg PO DAILY Qty: 90 1RF acetaminophen [Tylenol Extra Strength] 500 mg Tablet 500 - 1,000 mg PO Q6H PRN (Reason: Pain) Prolia 60 mg/mL syringe 60 mg subcut [id number] Qty: 1 3RF Primary Care Provider: Demarco Epstein Referrals: Demarco Epstein DO [Primary Care Provider] - Gera Sal MD [Non-Staff] - As soon as possible Activity Restrictions/Additional Instructions: Follow-up with gastroenterology. You may require upper endoscopy. 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 Return with increased pain, new or worsening symptoms. Print Language: Japanese Disposition Disposition: Home, Self Care
[2024-03-11 14:27] LABS: Absolute Lymphocyte Count 1.68 X10^3/uL (0.83-4.51); Absolute Neutrophil Count 6.5 X10^3/uL (2.0-7.7); Basophil# 0.07 X10^3/uL; Basophil% 0.8 % (0-1); Eosinophil# 0.04 X10^3/uL; Eosinophils% 0.4 % (0-5); Hematocrit 42.1 % (37-47); Hemoglobin 13.5 g/dL (12.0-15.0); Lymphocyte # 1.68 X10^3/ul (0.83-4.51); Lymphocyte % 18.8 % (19-41); Mean Corp Hgb Conc 32.1 g/dL (32-36); Mean Corpuscular Hgb 30.2 pg (27.0-32.0); Mean Corpuscular Volume 94.2 fL (81-99); Mean Platelet Vol. 8.7 fl (6.2-12.0); Monocyte# 0.65 X10^3/uL; Monocyte% 7.3 % (0-10); NRBC Flagged by Analyzer 0 % (0-5); Neutrophil # 6.48 X10^3/uL (2.7-7.7); Neutrophil % 72.4 % (47-70); Platelet Count 214 K/mm3 (150-450); RBC Distribution Width CV 13.3 % (11.6-14.6); RBC Distribution Width SD 46.3 fl (35.1-43.9); Red Blood Count 4.47 M/mm3 (4.2-5.4)
[2024-03-11] MEDS: Ondansetron 4 MG/2 ML Vial IV (14:31)
[2024-03-11] MEDS: 0.9% Normal Saline (1000mL) 1,000 ML 999 ML IV (14:31)
[2024-03-11] MEDS: Morphine 4 MG/ML Syringe IV (14:32)
[2024-03-11 14:44] LABS: ALB/GLOB Ratio 1.1 RATIO (0.9-2.4); AST(SGOT) 15 U/L (15-37); Alanine Aminotransfer ALT/SGPT 18 U/L (13-56); Albumin, Serum 3.8 g/dL (3.2-5.0); Alkaline Phosphatase 63 U/L (45-117); Anion Gap 6 (5-15); BUN 11 mg/dL (7-18); BUN/Creat Ratio 17.3 RATIO (10-20); Calcium,Total 9.4 mg/dL (8.5-10.1); Chloride 102 mmol/L (98-107); Creatinine, Serum 0.64 mg/dL (0.55-1.02); EST Glomerular Filtration Rate 99 mL/min (>60); Est Glom Filt Rate - Afr Amer 119 mL/min (>60); Globulin 3.6 g/dL (2.2-4.2); Glucose 126 mg/dL (74-106); Lipase 28 U/L (13-75); Protein, Total 7.4 g/dL (6.4-8.2); Sodium Level 135 mmol/L (136-145)
[2024-03-11 15:00] VITALS: BP 177/84; PULSE 69; RESP 19; TEMP 36.7; O2SAT 97
[2024-03-11 16:00] VITALS: BP 172/95; PULSE 69; RESP 19; TEMP 36.8; O2SAT 97
--- NOTE | 2024-03-11 16:01 | US_ITS ---
INDICATION: Pain EXAMINATION: Ultrasound US Abdomen Limited (quadrant) TECHNIQUE: Underwood scale and color doppler imaging was performed of the right upper quadrant. COMPARISON: FINDINGS: LIVER: There is normal echotexture measuring 13 cm. No focal hepatic lesion. There is no free fluid. GALLBLADDER AND BILIARY TREE: Cholelithiasis. No pericholecystic fluid or gallbladder wall thickening is demonstrated. The proximal common bile duct measures 4.8 mm, which is within normal limits for the patient''s age. Songraphic Choudhury''s sign: PANCREAS: Limited visualization of the pancreas. Right kidney: 11.4 x 4.5 x 4.1 cm. The cortex is 8mm. No hydronephrosis. No shadowing calculi. US/Gallbladder IMPRESSION: Cholelithiasis. No significant biliary dilatation. Electronically Signed: Timbo Ponce DO at 17:06 EDT ,
[2024-03-11 17:00] VITALS: BP 148/93; PULSE 61; RESP 19; TEMP 36.7; O2SAT 97
== END 2024-03-11 17:47 | disposition home or self-care (01) ==
PROVIDERS: Emergency Provider Emergency Medicine; PCP Family Medicine; Visit Provider Emergency Medicine
DX: R10.13 Epigastric pain (principal); F17.210 Nicotine dependence, cigarettes, uncomplicated
CPT/HCPCS: 74177; 76705; 80053; 83690; 85025; 96361; 96374; 96375; 96376; 99283; J7030; Q9967; A4216; J2405

== ENCOUNTER 2024-08-01 09:30 | Emergency (ER) | payer MEDICARE, SELFPAY ==
[2024-08-01 09:30] VITALS: BP 171/103; BP 181/102; PULSE 72; PULSE 81; RESP 16; TEMP 37.2; O2SAT 98
[2024-08-01 09:59] LABS: Absolute Lymphocyte Count 1.61 X10^3/uL (0.83-4.51); Absolute Neutrophil Count 4.2 X10^3/uL (2.0-7.7); Basophil# 0.04 X10^3/uL; Basophil% 0.6 % (0-1); Eosinophil# 0.05 X10^3/uL; Eosinophils% 0.8 % (0-5); Hematocrit 46.4 % (37-47); Hemoglobin 14.6 g/dL (12.0-15.0); Lymphocyte # 1.61 X10^3/ul (0.83-4.51); Mean Corp Hgb Conc 31.5 g/dL (32-36); Mean Corpuscular Hgb 29.7 pg (27.0-32.0); Mean Corpuscular Volume 94.5 fL (81-99); Mean Platelet Vol. 8.9 fl (6.2-12.0); Monocyte# 0.53 X10^3/uL; Monocyte% 8.2 % (0-10); NRBC Flagged by Analyzer 0 % (0-5); Neutrophil # 4.18 X10^3/uL (2.7-7.7); Neutrophil % 65.1 % (47-70); Platelet Count 214 K/mm3 (150-450); RBC Distribution Width CV 13.6 % (11.6-14.6); RBC Distribution Width SD 47.5 fl (35.1-43.9); Red Blood Count 4.91 M/mm3 (4.2-5.4); White Blood Count 6.4 K/mm3 (4.4-11.0)
[2024-08-01 10:12] LABS: Anion Gap 3 (5-15); BUN 10 mg/dL (7-18); BUN/Creat Ratio 14.9 RATIO (10-20); Calcium,Total 9.5 mg/dL (8.5-10.1); Chloride 106 mmol/L (98-107); Creatinine, Serum 0.67 mg/dL (0.55-1.02); EST Glomerular Filtration Rate 93 mL/min (>60); Est Glom Filt Rate - Afr Amer 112 mL/min (>60); Glucose 141 mg/dL (74-106); Sodium Level 138 mmol/L (136-145)
[2024-08-01 10:42] LABS: Bacteria 0 SEEN /hpf (None Seen); Mucous, Urine 0 SEEN /hpf (<or=2+); White Blood Cells 0 SEEN /hpf (0-5)
[2024-08-01 10:52] LABS: Color, Urine Yellow (Yellow); Glucose, Dipstick Normal (Normal); Ketone-Dipstick Negative (Negative); Leukocyte Esterase-Dipstick Negative /ul (Negative); Nitrite-Dipstick Negative (Negative); Occult Blood-Urine 25 /ul (Negative); Protein-Dipstick 15 mg/dl (Negative); Specific Gravity, Urine 1.005 (1.002-1.030); Urine Bilirubin Dipstick Negative (Negative); Urine Clarity Sl. Cloudy (Clear); Urine Urobilinogen Normal (Normal)
[2024-08-01 11:02] LABS: Squamous Epithelial Cells - UA 0-5 SEEN /hpf (5-10)
[2024-08-01 11:03] LABS: Red Blood Cells-Urine 0-5 SEEN /hpf (0-5)
--- NOTE | 2024-08-01 11:22 | US_ITS ---
STUDY: ABDOMINAL ULTRASOUND - RIGHT UPPER QUADRANT REASON FOR VISIT: Female, 69 years old pain, nausea TECHNIQUE: Ultrasound evaluation of the right upper quadrant was performed with real-time and static crespo-scale imaging. TECHNICAL QUALITY: Limited. Patient had breakfast this morning COMPARISON: None. FINDINGS: Liver: The liver measures 14.2 cm. There is normal echogenicity of the liver. The bile ducts are within normal limits. There is hepatic color flow. The direction of portal flow is hepatopetal. There is no demonstrated mass lesion. Gallbladder: Distended gallbladder. The gallbladder wall measures 1 mm. There is a negative sonographic Choudhury''s sign. There is no pericholecystic fluid. There are multiple echogenic structures within the gallbladder, consistent with multiple gallstones. Common Bile Duct (C.B.D.): The common bile duct measures 4 mm. Pancreas: Normal size of the head, body and tail of the pancreas. There is normal echogenicity of the pancreas. There is no demonstrated pancreatic mass or cyst. Right Kidney: Normal size of the right kidney. The right kidney measures 10.1 x 5.2 x 3.7 cm. Normal renal cortex. The right cortex measures 1.0 cm. There is no demonstrated renal mass or cyst. There is no right hydronephrosis. Incidental note is made of peripheral calcifications in the abdominal aorta US/Gallbladder IMPRESSION: Cholelithiasis, no sonographic evidence of acute cholecystitis. The gallbladder however is distended and findings could be seen with biliary dyskinesia. Consider HIDA scan which could measure the gallbladder ejection fraction. Other solid organs of the right upper quadrant are sonographically normal Electronically Signed: Denver Benito MD at 12:28 EDT ,
[2024-08-01 11:30] VITALS: BP 180/96
[2024-08-01] MEDS: Ondansetron 4 MG/2 ML Vial IV (11:30)
[2024-08-01] MEDS: Morphine 4 MG/ML Syringe IV (11:30)
--- NOTE | 2024-08-01 11:33 | EX.ED.DYSGE1 ---
HPI History of Present Illness Chief Complaint: Abd Pain Informant: patient and spouse/S.O. Narrative Narrative: Patient has occasional episodes of upper abdominal discomfort, this episode started this morning within the last 3 to 4 hours and has not gone away and is more severe than the others. She states that she saw Dr. Sal and had an EGD that was unremarkable because of the symptoms. She states she had a CT scan that showed gallstones. The only prior abdominal surgery she has had is a partial colon resection. This was remote. She has nausea this morning but no vomiting. The pain does not radiate into her shoulders, back, chest, or anywhere else. No migration. Mostly epigastric. She denies any problems with bowel movements or urination recently. No fevers or chills this morning. She states the only thing she ate prior to the pain was some Cheerios and a bowl. When she woke up she did not have the pain and it started after. 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 Osteopenia Depression Anxiety IBS (irritable bowel syndrome) Arthritis Home Medications ?Medication ?Instructions ?Recorded ?Last Taken ?Type acetaminophen 500 mg tablet 500 - 1,000 mg PO Q6H PRN Pain 04/21/21 09/07/21 History (Tylenol Extra Strength) multivitamin 1 tab PO DAILY 05/26/21 08/31/21 History cholecalciferol (vitamin D3) 10 10 mcg PO DAILY 10/14/21 Unknown History mcg (400 unit) capsule denosumab 60 mg/mL subcutaneous 60 mg subcut [id number] #1 mL 01/26/23 Unknown Rx syringe (Prolia) magnesium glycinate 100 mg (as 100 mg PO DAILY #90 tabs 04/19/23 Unknown Rx glycinate) tablet escitalopram oxalate 10 mg tablet 10 mg PO DAILY #90 tabs 01/24/24 Unknown Rx (Lexapro) omeprazole 40 mg capsule,delayed 40 mg PO DAILY #90 caps 05/29/24 Unknown Rx release alprazolam 0.25 mg tablet 0.25 mg PO TID 08/01/24 Unknown History oxycodone-acetaminophen 5 mg-325 1 tab PO Q6H PRN pain 3 days #12 08/01/24 Unknown Rx mg tablet (Percocet) tabs Allergy/AdvReac Type Severity Reaction Status Date / Time ibuprofen (From Advil) AdvReac Intermediate stomach Verified 08/01/24 09:31 problems Family History Mother Breast cancer Father Cancer Surgical History History of right hemicolectomy (04/21/21) History of partial hysterectomy History of colonoscopy Social History Smoking Status: Current every day smoker tobacco type: cigarettes alcohol intake: current alcohol intake frequency: holidays/special occasions only Alcohol type: wine substance use type: does not use what type of physical activity do you participate in: walking and bicycling ROS ROS ED Constitutional Constitutional ED: Denies chills or fever(s) Eyes Eyes: Denies change in vision or diplopia ENT ENT ED: Denies rhinorrhea or sore throat Cardiovascular Cardiovascular: Denies chest pain or palpitations Respiratory/Chest Respiratory/Chest: Denies cough or dyspnea Gastrointestinal Gastrointestinal: Reports abdominal pain and nausea; Denies diarrhea or vomiting Genitourinary Genitourinary ED: Denies dysuria or hematuria Musculoskeletal Musculoskeletal: Denies back pain or neck pain Integumentary Denies abscess or rash Neurologic Neurologic: Denies headache(s), paresthesias or weakness Psychiatric Psychiatric: Denies anxiety or suicidal thoughts EXAM Physical Exam Const Vital Signs: 08/01/24 09:30 08/01/24 09:30 08/01/24 11:30 Temperature 99 F Temperature Source Oral Pulse Rate 72 81 Respiratory Rate 16 16 Blood Pressure 171/103 H 181/102 H 180/96 H Blood Pressure Mean 125 128 124 Pulse Ox 98 98 Oxygen Delivery Method Room Air Room Air 08/01/24 13:00 Temperature Temperature Source Pulse Rate Respiratory Rate Blood Pressure 154/72 H Blood Pressure Mean 99 Pulse Ox 97 Oxygen Delivery Method Positive well nourished and well developed General Appearance ED: well developed and NAD HEENT Reports moist mucous membranes normocephalic and atraumatic Eyes PERRL and EOMs intact bilaterally Neck full ROM and supple Resp normal respiratory effort and clear to auscultation bilaterally Cardio regular rate, regular rhythm and no murmurs GI non-distended GI Narrative: Tender in the upper abdomen but mostly in the epigastrium and left upper quadrant, less so in the right upper quadrant with a negative Choudhury. The rest of the abdomen is benign no pulsatile mass or palpable firm nodules or masses. Auscultation: normoactive bowel sounds Palpation: soft Back/Spine no CVA tenderness General Back: other FROM Extremity normal to inspection General Extremety ED: Negative for edema, pulses abnormal or tenderness General Extremity: Negative for edema or pulses abnormal Neuro oriented x3, CN's II-XII intact bilaterally and no sensory deficits noted Sensorium / Orientation: awake and alert Motor Exam: strength 5/5 throughout Skin no rashes or lesions noted and no wounds MDM MDM MDM Narrative Medical decision making narrative: It is possible she is having biliary pain. I obtained lab work including liver enzymes and lipase which is all normal including her white blood count which is only 6.4, as well as an ultrasound of the gallbladder. I reviewed the images and report which I agree with, it is consistent with cholelithiasis without signs of acute cholecystitis. It is noted that the gallbladder is distended. The patient really has not eaten anything with fat and at this morning, she states she had fried mushrooms last night. Dyskinesia is in the differential as is a normal gallbladder with stones otherwise. After medication she is feeling much better, on reexamination she barely has any epigastric tenderness negative Choudhury's. She is comfortable. I do not think she needs to be admitted for acute cholecystitis or cholecystectomy emergently right now, I recommend following up with surgery and/or her PCP and potentially getting a HIDA scan to sort out if she is truly having biliary problems that are causing the symptoms or not. I am going to prescribe her some medication that she can use if she has more pain at home at her request which I think is reasonable. She has seen Dr. Matt in the past so following up with him would be reasonable, but if he does not have an appointment that is soon, I have advised her to follow-up with her PCP as she may be able to get a HIDA scan done before she sees surgery. We discussed reasons to return to the ER as well she is comfortable with that plan. Lab Data Attestation: I reviewed the patient's lab results. Labs: Laboratory Results - last 24 hr 08/01/24 08/01/24 09:45 10:40 WBC 6.4 RBC 4.91 Hgb 14.6 Hct 46.4 MCV 94.5 MCH 29.7 MCHC 31.5 L RDW Std Deviation 47.5 H RDW Coeff of Reece 13.6 Plt Count 214 MPV 8.9 Immature Gran % (Auto) 0.300 Neut % (Auto) 65.1 Lymph % (Auto) 25.0 [place] % (Auto) 8.2 Eos % (Auto) 0.8 Baso % (Auto) 0.6 Absolute Neuts (auto) 4.2 Absolute Lymphs (auto) 1.61 Nucleated RBC % 0 Sodium 138 Potassium 4.0 Chloride 106 Carbon Dioxide 29.0 Anion Gap 3 L BUN 10 Creatinine 0.67 Est GFR (MDRD) Af Amer 112 Est GFR (MDRD) Non-Af 93 BUN/Creatinine Ratio 14.9 Glucose 141 H Calcium 9.5 Total Bilirubin 0.50 Direct Bilirubin 0.14 AST 22 ALT 34 Alkaline Phosphatase 72 Total Protein 8.2 Albumin 4.2 Globulin 4.0 Lipase 30 Urine Color Yellow Urine Clarity Sl. Cloudy Urine pH 7.0 Ur Specific [place] 1.005 Urine Protein 15 H Urine Glucose (UA) Normal Urine Ketones Negative Urine Occult Blood 25 H Urine Nitrite Negative Urine Bilirubin Negative Urine Urobilinogen Normal Ur Leukocyte Esterase Negative Urine RBC 0-5 SEEN Urine WBC 0 SEEN Ur Squamous Epith Cells 0-5 SEEN Urine Bacteria 0 SEEN Urine Mucus 0 SEEN Radiography Diagnostic Testing: Clinical Impression(s) from Imaging Studies Gallbladder Ultrasound 08/01/24 11:22 IMPRESSION: Cholelithiasis, no sonographic evidence of acute cholecystitis. The gallbladder however is distended and findings could be seen with biliary dyskinesia. Consider HIDA scan which could measure the gallbladder ejection fraction. Other solid organs of the right upper quadrant are sonographically normal Electronically Signed: Denver Benito MD at 12:28 EDT , Discharge Plan Triage Chief Complaint: Abd Pain ED Provider: Nato Arroyo Dx/Rx/DC Orders Clinical Impression: Acute upper abdominal pain, Cholelithiasis Instructions: Gallstones Dc, ED Diet, Low Fat Prescriptions: New oxycodone-acetaminophen [Percocet] 5-325 mg tablet 1 tab PO Q6H PRN (Reason: pain) 3 Days Qty: 12 0RF No Action multivitamin Tablet 1 tab PO DAILY cholecalciferol (vitamin D3) 10 mcg (400 unit) capsule 10 mcg PO DAILY magnesium glycinate 100 mg tablet 100 mg PO DAILY Qty: 90 2RF escitalopram oxalate [Lexapro] 10 mg tablet 10 mg PO DAILY Qty: 90 1RF omeprazole 40 mg capsule,delayed release(DR/EC) 40 mg PO DAILY Qty: 90 1RF acetaminophen [Tylenol Extra Strength] 500 mg Tablet 500 - 1,000 mg PO Q6H PRN (Reason: Pain) alprazolam 0.25 mg tablet 0.25 mg PO TID Prolia 60 mg/mL syringe 60 mg subcut [id number] Qty: 1 3RF Primary Care Provider: Demarco Epstein Referrals: Gilberto Matt MD [Med Staff - Active Staff] - As soon as possible Demarco Epstein, DO [Primary Care Provider] - Activity Restrictions/Additional Instructions: Unclear if your episodic symptoms are related to your gallstones or not. Discussed with surgery or your doctor about potentially having a HIDA scan to look into this further. Print Language: Malay Disposition Disposition: Home, Self Care
[2024-08-01 11:49] LABS: AST(SGOT) 22 U/L (15-37); Alanine Aminotransfer ALT/SGPT 34 U/L (13-56); Albumin, Serum 4.2 g/dL (3.2-5.0); Alkaline Phosphatase 72 U/L (45-117); Bilirubin, Direct 0.14 mg/dL (0.00-0.30); Lipase 30 U/L (13-75); Protein, Total 8.2 g/dL (6.4-8.2)
[2024-08-01 13:00] VITALS: BP 154/72; O2SAT 97
[2024-08-01 13:59] VITALS: BP 154/72; PULSE 87; RESP 19; TEMP 36.4; O2SAT 97
== END 2024-08-01 14:12 | disposition home or self-care (01) ==
PROVIDERS: Emergency Provider Emergency Medicine; PCP Family Medicine; Visit Provider Emergency Medicine
DX: K80.20 Calculus of gallbladder without cholecystitis without obstruction (principal); F32.A Depression, unspecified; F41.9 Anxiety disorder, unspecified; F17.210 Nicotine dependence, cigarettes, uncomplicated; K58.9 Irritable bowel syndrome, unspecified; M19.90 Unspecified osteoarthritis, unspecified site; M85.80 Other specified disorders of bone density and structure, unspecified site; Z90.49 Acquired absence of other specified parts of digestive tract; Z79.899 Other long term (current) drug therapy
CPT/HCPCS: 76705; 80048; 80076; 81001; 83690; 85025; 96374; 96375; 99282; A4216; J2405

== ENCOUNTER 2024-08-16 08:45 | Observation (INO) | payer MEDICARE, SELFPAY ==
[2024-08-16] VITALS (24 sets, daily range): BP systolic 120–193; BP diastolic 61–93; PULSE 52–82; RESP 12–18; TEMP 36.2–37.2; O2SAT 92–100; BMI 20.5
[2024-08-16] MEDS: Lactated Ringers 1,000 ML 15 ML IV (06:45)
[2024-08-16] MEDS: Cefotetan 2 GM in 0.9% Normal Saline (100mL MB+) 100 ML IV (07:25)
[2024-08-16] MEDS: Bupiv/Epi 0.25% 30 ML Vial (08:13)
[2024-08-16] MEDS: Lactated Ringers 1,000 ML 100 ML IV (08:59)
[2024-08-16] MEDS: Morphine 2 MG/ML Syringe IV ×2 (13:12→23:20)
[2024-08-16] MEDS: 0.9% Saline Lock 10 ML Syringe IV ×4 (13:14→23:54)
[2024-08-16] MEDS: Ondansetron 4 MG/2 ML Vial IV (20:47)
[2024-08-16] MEDS: proMETHazine 25 MG Tablet PO (23:53)
[2024-08-16] MEDS: Acetaminophen 325 MG Tablet 650 MG PO (23:53)
[2024-08-16] MEDS: hydrALAZINE 20 MG/ML Vial 10 MG IV (23:54)
[2024-08-17 02:00] VITALS: BP 146/70; PULSE 84; RESP 16; TEMP 36.5; O2SAT 98
[2024-08-17 06:00] VITALS: BP 158/88; PULSE 72; RESP 16; TEMP 36.8; O2SAT 98
[2024-08-17] MEDS: Acetaminophen 325 MG Tablet 650 MG PO (06:05)
[2024-08-17 06:22] LABS: Absolute Lymphocyte Count 1.78 X10^3/uL (0.83-4.51); Absolute Neutrophil Count 8.3 X10^3/uL (2.0-7.7); Basophil# 0.03 X10^3/uL; Basophil% 0.3 % (0-1); Hematocrit 42.8 % (37-47); Hemoglobin 13.7 g/dL (12.0-15.0); Lymphocyte # 1.78 X10^3/ul (0.83-4.51); Lymphocyte % 15.8 % (19-41); Mean Corpuscular Hgb 29.9 pg (27.0-32.0); Mean Corpuscular Volume 93.4 fL (81-99); Mean Platelet Vol. 9.8 fl (6.2-12.0); Monocyte# 1.09 X10^3/uL; Monocyte% 9.7 % (0-10); NRBC Flagged by Analyzer 0 % (0-5); Neutrophil # 8.34 X10^3/uL (2.7-7.7); Neutrophil % 73.8 % (47-70); Platelet Count 174 K/mm3 (150-450); RBC Distribution Width CV 13.6 % (11.6-14.6); RBC Distribution Width SD 46.7 fl (35.1-43.9); Red Blood Count 4.58 M/mm3 (4.2-5.4); White Blood Count 11.3 K/mm3 (4.4-11.0)
[2024-08-17 07:03] LABS: ALB/GLOB Ratio 1.1 RATIO (0.9-2.4); AST(SGOT) 57 U/L (15-37); Alanine Aminotransfer ALT/SGPT 65 U/L (13-56); Albumin, Serum 3.6 g/dL (3.2-5.0); Alkaline Phosphatase 63 U/L (45-117); Anion Gap 6 (5-15); BUN 9 mg/dL (7-18); BUN/Creat Ratio 16.4 RATIO (10-20); Calcium,Total 8.5 mg/dL (8.5-10.1); Chloride 100 mmol/L (98-107); Creatinine, Serum 0.55 mg/dL (0.55-1.02); EST Glomerular Filtration Rate 117 mL/min (>60); Est Glom Filt Rate - Afr Amer 141 mL/min (>60); Globulin 3.2 g/dL (2.2-4.2); Glucose 134 mg/dL (74-106); Potassium 3.8 mmol/L (3.5-5.1); Protein, Total 6.8 g/dL (6.4-8.2); Sodium Level 132 mmol/L (136-145)
[2024-08-17 08:43] VITALS: BP 158/81; PULSE 62; RESP 16; TEMP 36.7; O2SAT 99
== END 2024-08-17 11:26 | disposition home or self-care (01) ==
LOC: MS3 11:10 → SDC 13:31 → MS3 13:31
PROVIDERS: Internal Medicine Gastroenterology; Admitting Provider Surgery; PCP Family Medicine; Referring Provider Surgery; Visit Provider Surgery
PROC: (CPT 47610; principal; 2024-08-16 07:15)
DX: K80.65 Calculus of gallbladder and bile duct with chronic cholecystitis with obstruction (principal); F17.210 Nicotine dependence, cigarettes, uncomplicated; Z79.899 Other long term (current) drug therapy; F41.9 Anxiety disorder, unspecified; F32.A Depression, unspecified; R94.31 Abnormal electrocardiogram [ECG] [EKG]
CPT/HCPCS: 47563; 43264; 00790; 43274; 36415; 74300; 74330; 76000; 80053; 85025; 88304; 93005; 96374; 96375; 96376; 99221; J7120; A4216; G0378; J1610; J2405

== ENCOUNTER 2024-09-01 06:35 | Emergency (ER) | payer MEDICARE, SELFPAY ==
[2024-09-01 06:36] VITALS: BP 127/89; PULSE 87; RESP 16; TEMP 36.6; O2SAT 100; BMI 20.5
--- NOTE | 2024-09-01 07:07 | ED.VIS.LOWEX ---
HPI History of Present Illness Chief Complaint: Lower Extremity Injury Informant: patient Narrative Narrative: Patient is a 69-year-old female with history of prior DVT, colon cancer and recent cholecystectomy on August 16 presenting with left thigh discomfort and left lower extremity swelling. Patient states that she has had some pain in her leg for 3 to 4 days. It started the day after they went to the store to thought maybe she overdid it or pulled something. This morning when she woke up she notes her leg looks swollen. She states she has pain in her thigh and worse with movement. States it is fine at rest. Denies associate numbness or tingling. [place] any shortness of breath difficulty breathing. She is otherwise she has been doing well and healing well from her surgery. Is not currently on any blood thinners. No other complaints or concerns reported at this time. Denies any trauma or injury to her leg. Denies any associated back pain. No urinary symptoms reported. 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 Osteopenia Depression Anxiety IBS (irritable bowel syndrome) Arthritis Home Medications ?Medication ?Instructions ?Recorded ?Last Taken ?Type acetaminophen 500 mg tablet 500 - 1,000 mg PO Q6H PRN Pain 04/21/21 09/07/21 History (Tylenol Extra Strength) multivitamin 1 tab PO DAILY 05/26/21 08/31/21 History cholecalciferol (vitamin D3) 10 10 mcg PO DAILY 10/14/21 Unknown History mcg (400 unit) capsule denosumab 60 mg/mL subcutaneous 60 mg subcut [id number] #1 mL 01/26/23 Unknown Rx syringe (Prolia) escitalopram oxalate 10 mg tablet 10 mg PO DAILY #90 tabs 01/24/24 08/16/24 Rx (Lexapro) alprazolam 0.25 mg tablet 0.25 mg PO TID 08/01/24 08/16/24 History octreotide,microspheres 20 mg 20 mg IM Q4W #1 ea 08/14/24 Unknown Rx intramuscular susp, extended release (Sandostatin LAR Depot) apixaban 5 mg (74 tabs) tablets in See Rx Instructions .Route 09/01/24 Unknown Rx a dose pack (Eliquis DVT-PE Treat .COMPLEX #74 tabs 30D Start) Allergy/AdvReac Type Severity Reaction Status Date / Time ibuprofen (From Advil) AdvReac Intermediate stomach Verified 09/01/24 06:36 problems Family History Mother Breast cancer Father Cancer Surgical History S/P laparoscopic cholecystectomy Hx laparoscopic cholecystectomy History of right hemicolectomy (04/21/21) History of partial hysterectomy History of colonoscopy Social History Smoking Status: Current every day smoker tobacco type: cigarettes alcohol intake: current alcohol intake frequency: holidays/special occasions only Alcohol type: wine substance use type: does not use what type of physical activity do you participate in: walking and bicycling ROS ROS ED Constitutional Constitutional ED: Denies chills or fever(s) Respiratory/Chest Respiratory/Chest: Denies cough or dyspnea Gastrointestinal Gastrointestinal: Denies abdominal pain Musculoskeletal Musculoskeletal: Reports other Details: Left thigh pain, left lower extremity swelling ; Denies back pain Integumentary Denies rash Neurologic Neurologic: Denies paresthesias or weakness Hematologic/Lymphatic Hematologic/Lymphatic: Denies easy bleeding or easy bruising EXAM Physical Exam Const Vital Signs: 09/01/24 06:36 Temperature 97.9 F Temperature Source Oral Pulse Rate 87 Respiratory Rate 16 Blood Pressure 127/89 H Blood Pressure Mean 101 Pulse Ox 100 Oxygen Delivery Method Room Air Positive well nourished and well developed General Appearance ED: well developed HEENT normocephalic and atraumatic Neck full ROM and supple Chest Wall inspection of chest normal and palpation of chest normal Resp normal respiratory effort and clear to auscultation bilaterally Cardio regular rate, regular rhythm and no murmurs Cardio Narrative: 2+ DP pulses GI non-tender and non-distended GI Narrative: Soft, nontender. Healing surgical incisions of the abdomen Back/Spine Back/Spine Narrative: No midline lumbar tenderness. Negative straight leg test bilaterally. Extremity Extremity Narrative: Mild nonpitting edema noted of the left lower extremity which is asymmetric from the right. There is mild plethora of the left lower extremity. No palpable cords. Compartments are soft. No reproducible tenderness to palpation. Normal range of motion of the hip and knee. No effusions appreciated. Neuro oriented x3 Sensorium / Orientation: alert Motor Exam: Negative for general weakness Psych mental status grossly normal Skin Lesions: no lesions Rashes: no rashes MDM MDM MDM Narrative Medical decision making narrative: Patient evaluated for left thigh pain and leg swelling. Had recent surgery. Has a history of DVT. We do not have formal vascular ultrasound abilities today however bedside ultrasound performed by myself does show clot in femoral vein at the groin as well as distally and into the calf. She has good distal pulses. She has normal vital signs and is not complain of any shortness of breath. 100% on room air. Will start treatment for DVT and order outpatient formal venous duplex for tomorrow. Patient will be given referral for vascular surgery and follow-up with her PCP. Counseled on the risk of anticoagulation with increased risk of bleeding and given return precautions emergency room. Patient verbalized agreement understand this plan. Discharged home in stable condition. First dose of Eliquis given in the emergency room. Patient's previously been on that tolerated it well. Discharge Plan Triage Chief Complaint: Lower Extremity Injury ED Provider: Jenny Nava Dx/Rx/DC Orders Clinical Impression: Acute deep vein thrombosis (DVT) of femoral vein of left lower extremity Instructions: ED Deep Vein Thrombosis (DVT) Prescriptions: New Eliquis DVT-PE Treat 30D Start 5 mg (74 tabs) tablets,dose pack See Rx Instructions .Route .COMPLEX Qty: 74 0RF Rx Instructions: orally per package directions No Action multivitamin Tablet 1 tab PO DAILY cholecalciferol (vitamin D3) 10 mcg (400 unit) capsule 10 mcg PO DAILY escitalopram oxalate [Lexapro] 10 mg tablet 10 mg PO DAILY Qty: 90 1RF acetaminophen [Tylenol Extra Strength] 500 mg Tablet 500 - 1,000 mg PO Q6H PRN (Reason: Pain) alprazolam 0.25 mg tablet 0.25 mg PO TID Prolia 60 mg/mL syringe 60 mg subcut [id number] Qty: 1 3RF octreotide,microspheres [Sandostatin LAR Depot] 20 mg suspension,extended rel recon 20 mg IM Q4W Qty: 1 11RF Other Ambulatory Orders: Venous Duplex US, Unilateral (Stat) Facility: [facility] - Location: [facility] Ordered By: Dr. Jenny Nava Primary Care Provider: Demarco Epstein Referrals: Demarco Epstein DO [Primary Care Provider] - Preet Guerrero MD [Med Staff - Active Staff] - 3-5 Days Activity Restrictions/Additional Instructions: Your ultrasound in the ER performed by the ER physician was consistent with a blood clot in your left femoral vein. We will start you on Eliquis and you are given first dose in the emergency room. Please follow-up tomorrow for formal venous duplex ultrasound for definitive diagnosis. Please follow-up with vascular surgeon as well as your primary care doctor. While on blood thinner you are at increased risk of bleeding. Please not take aspirin or anti-inflammatory such as ibuprofen. You may continue take Tylenol as needed for pain. Print Language: Albanian Disposition Disposition: Home, Self Care
[2024-09-01] MEDS: APIXABAN 5 MG TABLET 10 MG PO (07:41)
[2024-09-01 07:46] VITALS: BP 121/84; PULSE 87; RESP 16; TEMP 37.1; O2SAT 99
== END 2024-09-01 07:49 | disposition home or self-care (01) ==
PROVIDERS: Emergency Provider Emergency Medicine; PCP Family Medicine; Visit Provider Emergency Medicine
DX: I82.412 Acute embolism and thrombosis of left femoral vein (principal); I82.4Z2 Acute embolism and thrombosis of unspecified deep veins of left distal lower extremity; M85.80 Other specified disorders of bone density and structure, unspecified site; F41.9 Anxiety disorder, unspecified; F32.A Depression, unspecified; M19.90 Unspecified osteoarthritis, unspecified site; F17.210 Nicotine dependence, cigarettes, uncomplicated; Z90.49 Acquired absence of other specified parts of digestive tract; Z85.038 Personal history of other malignant neoplasm of large intestine; Z86.718 Personal history of other venous thrombosis and embolism
CPT/HCPCS: 99282

== ENCOUNTER → 2024-09-01 | Outpatient (CLI) | payer MEDICARE, SELFPAY ==
--- NOTE | 2024-09-01 12:13 | VDLE_ITS ---
Reason For Study: Swelling LLE RIGHT LEFT CFV is compressible, spontaneous, phasic, GSV is normal. competent and demonstrates normal Acute deep vein thrombosis is noted in the augmentation. CFV. It is dilated and NONCOMPRESSIBLE. Procedure Acute deep vein thrombosis is noted in the This is a venous duplex using B-mode, color FV. It is dilated and NONCOMPRESSIBLE. flow and spectral Doppler. Acute deep vein thrombosis is noted in the Exam performed in department. POP V. It is dilated and NONCOMPRESSIBLE. Patient seen in [facility] ED this moring, bedside Acute deep vein thrombosis is noted in the ultrasound performed by Dr. Nava showed T/P Trunk. It is dilated and NONCOMPRESSIBLE. groin to calf DVT, patient was discharged on Acute deep vein thrombosis is noted in the Eliquis. Gastrocnemius V. It is dilated and A preliminary report was called and/or faxed NONCOMPRESSIBLE. to Dr. Epstein. Acute deep vein thrombosis is noted in the PTV. It is dilated and NONCOMPRESSIBLE. Acute deep vein thrombosis is noted in the Per V. It is dilated and NONCOMPRESSIBLE. Acute deep vein thrombosis is noted in the SoleusV. It is dilated and NONCOMPRESSIBLE. VL/Venous Duplex US, Unilateral Interpretation Summary Acute deep vein thrombosis noted in the left common femoral vein, femoral vein, popliteal vein, tibioperoneal trunk vein, gastrocnemius vein, posterior tibial vein, peroneal v ein, soleus vein. Ordering Physician: Jenny Nava Referring Physician: Demarco Epstein Performed By: Patricia Otto, SNOW, RVT
== END | disposition home or self-care (01) ==
PROVIDERS: PCP Family Medicine; Visit Provider Emergency Medicine
DX: M79.89 Other specified soft tissue disorders (principal)
CPT/HCPCS: 93971

== ENCOUNTER → 2024-09-17 | Outpatient (CLI) | payer MEDICARE, SELFPAY ==
--- NOTE | 2024-09-17 10:55 | RAD_ITS ---
HISTORY: abdominal pain s/p ERCP stent, r/o constipation. TECHNIQUE: XR Abdomen W/ Decub and/or Erect Views. COMPARISON: CT 03/11/2024. FINDINGS: BOWEL GAS PATTERN: No dilated bowel loops identified. Moderate stool in the rectum. Sutures in the pelvis. FREE AIR: No gross free air seen on upright view with gaseous distention of bowel noted in the left upper quadrant. CALCIFICATIONS: No abnormal calcifications observed. BONES: Mild thoracolumbar scoliosis. SOFT TISSUES: Right upper quadrant biliary stent. RAD/[employer] Decub and/or Erect IMPRESSION: Moderate stool in the rectum. Electronically Signed: Madina Goss MD at 10:33 EST ,
== END | disposition home or self-care (01) ==
LOC: RAD 10:52
PROVIDERS: PCP Family Medicine; Referring Provider Nurse Practitioner Acute Care; Visit Provider Nurse Practitioner Acute Care
DX: R10.13 Epigastric pain (principal); R11.0 Nausea; R10.31 Right lower quadrant pain
CPT/HCPCS: 74019

== ENCOUNTER 2024-09-23 10:40 | Day surgery (SDC) | payer MEDICARE, SELFPAY ==
--- NOTE | 2024-09-20 13:42 | PAT.ANE_ITS ---
Pre-Assessment Diagnosis/Proposed Procedure Planned Operative Procedure(s): ERCP Anesthesia History Anesthesia History - food and beverage assistant: Anesthesia History - food and beverage assistant Hx Hospitalization Yes: 08/16/2024 09/20/24 10:18 Any Problems With Anesthesia No 09/20/24 10:18 Cholinesterase deficiency No 09/20/24 10:18 You/Your Family Experience No 09/20/24 10:18 fever (hyperthermia) with Relationship Recent Exposure to Contagious No 08/16/24 06:09 Disease Does patient have nerve No 09/20/24 10:18 stimulator Patient instructed to have device shut off --Does patient have Pacemaker or ICD? When Was Last Pacemaker Check QUESTION #4 FULL TEXT: You/Your Family Experience fever (hyperthermia) with Anesthesia Last Oral Intake Last Oral intake: Last Oral Intake NPO since Meds taken in AM with sips of water? Meds patient instructed to take am of surgery PONV PONV - food and beverage assistant: PONV - food and beverage assistant Female Yes 09/20/24 10:18 HX of Motion Sickness No 09/20/24 10:18 HX of N/V After Surgery No 09/20/24 10:18 Non-Smoker No 09/20/24 10:18 Duration of Surgery greater No 09/20/24 10:18 than 60 minutes Number of Risk Factors 1 09/20/24 10:18 PONV Score Low Risk 09/20/24 10:18 Height & Weight Height & Weight: Anesthesia: Height & Weight Height 5 ft 4 in 09/18/24 11:28 Respiratory Assessment Respiratory Assessment - food and beverage assistant: Respiratory Tract Infection Hx - food and beverage assistant Hx Respiratory Tract Infection No 09/20/24 10:18 STOP Sleep Apnea STOP Sleep Apnea - food and beverage assistant: STOP Sleep Apnea - food and beverage assistant Hx Hypertension No 09/20/24 10:18 Hx Sleep Apnea No 09/20/24 10:18 CPAP No 09/20/24 10:18 BIPAP Do you snore loudly (louder No 09/20/24 10:18 than talking or can be heard Do you often feel tired/ No 09/20/24 10:18 fatigued/ sleepy during daytime? Has anyone observed you stop No 09/20/24 10:18 breathing during sleep? STOP Results Negative 09/20/24 10:18 QUESTION #5 FULL TEXT : Do you snore loudly (louder than talking or can be heard through closed doors)? Tobacco Use History Tobacco Use History - food and beverage assistant: Tobacco Use History - food and beverage assistant Tobacco Use Smoking Status Current every day smoker 09/20/24 10:18 Hx Tobacco Use Yes 09/20/24 10:18 Years Smoking Packs Smoked per Day Smoking Cessation Date was within the last 15 years Hx Smoking Cessation Date Hx Smoking Cessation Counseling Hematologic Medial History Hematologic Hx - food and beverage assistant: Hematologic Medical Hx - coagulation operator Hx of Blood Transfusion No 09/20/24 10:18 Hx of Transfusion in last 3 No 09/20/24 10:18 Months Date of Last Transfusion (if within last 3 months) Ever experience any problems No 09/20/24 10:18 with transfusion(s)? Specify any problems Hx of Preganancy in last 3 No 09/20/24 10:18 Months Nurse Filling Out Transfusion VCHRISTIN 09/20/24 10:18 & Questions: Date: 09/20/24 09/20/24 10:18 Time: 10:19 09/20/24 10:18 Patient unable to answer at this time (ie. 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 Osteopenia Depression Anxiety IBS (irritable bowel syndrome) Arthritis Home Medications ?Medication ?Instructions ?Recorded ?Last Taken ?Type acetaminophen 500 mg tablet 500 - 1,000 mg PO Q6H PRN Pain 04/21/21 09/07/21 History (Tylenol Extra Strength) denosumab 60 mg/mL subcutaneous 60 mg subcut [id number] #1 mL 01/26/23 Unknown Rx syringe (Prolia) alprazolam 0.25 mg tablet 0.25 mg PO TID 08/01/24 08/16/24 History octreotide,microspheres 20 mg 20 mg IM Q4W #1 ea 08/14/24 Unknown Rx intramuscular susp, extended release (Sandostatin LAR Depot) apixaban 5 mg tablet (Eliquis) 5 mg PO BID #180 tabs 09/18/24 Unknown Rx calcium carb-ergocalciferol (vit 1 tab PO DAILY 09/20/24 Unknown History D2) 600 mg calcium-200 unit tablet cholecalciferol (vitamin D3) 25 25 mcg PO DAILY 09/20/24 Unknown History mcg (1,000 unit) capsule (Vitamin D3) escitalopram oxalate 10 mg tablet 10 mg PO DAILY 09/20/24 Unknown History multivitamin (Daily Multi-Vitamin 1 tab PO DAILY 09/20/24 Unknown History tablet) Allergy/AdvReac Type Severity Reaction Status Date / Time ibuprofen (From Advil) AdvReac Intermediate stomach Verified 09/20/24 10:11 problems Family History Mother Breast cancer Father Cancer Surgical History (Updated 09/20/24 @ 10:18 by Willow Caro) History of ERCP S/P laparoscopic cholecystectomy Hx laparoscopic cholecystectomy History of right hemicolectomy (04/21/21) History of partial hysterectomy History of colonoscopy Social History Smoking Status: Current every day smoker tobacco type: cigarettes alcohol intake: current alcohol intake frequency: holidays/special occasions only Alcohol type: wine substance use type: does not use what type of physical activity do you participate in: walking and bicycling Audit: Pertinent Findings Pertinent Findings EKG Perinent findings: 08/2024 nsr, sinus arrythmia Echo (EF%) pertinent findings: 2014 ef 70 Recommendation Anesthesia Recommendation Anesthesia recommendation: OPTIMIZED for anesthesia
[2024-09-23] VITALS (21 sets, daily range): BP systolic 133–241; BP diastolic 82–116; PULSE 61–83; RESP 12–18; TEMP 36.1–36.7; O2SAT 90–100; BMI 19.3
--- NOTE | 2024-09-23 11:00 | RAD_ITS ---
STUDY: ERCP REASON FOR EXAM: Female, 69 years old. Common bile duct dilatation. FLUOROSCOPY TIME (if supplied): ( 4 minutes and 18 seconds ) minutes/seconds. 31.88 mGy. 10 fluoroscopic images were submitted. TECHNIQUE: Intraoperative fluoroscopic imaging provided. A stent is seen within the common bile duct. A balloon catheter is seen. COMPARISON: None. RAD/ERCP Biliary/Pancreas IMPRESSION: Fluoroscopic services provided for ERCP. Electronically Signed: Fili Stone MD at 9:47 EST ,
--- NOTE | 2024-09-23 12:00 | FLU_PTH ---
PATIENT: JONO GARCIA LOC: EN U#:[id number] AGE/SX: 69/F ROOM: RE09/23/[address]: Dr. Robson Smith DO : 1955 BED: DIS: 09/23/2024 SPEC #: [id number] RECD: 09/23/24 14:02 STATUS: ALE REMaximilian #: [id number] LEVON: 09/23/24 12:[address]: Robson Smith DEPT: CYTOLOGY RECD BY: Lenora Marie ENTERED: 09/23/24 14:14 SP TYPE: Fluid OTHR DR: Dr. Demarco Epstein, DO Tissues: Bile duct, NOS Procedures: Special Stain Group II Surgery Specimen Level III Surgery Specimen Level IV Cytospin Fluid HEADER OPERATION: Ampulla dilation, stent removal, balloon cholangiogram PRE-OP DIAGNOSIS: Right lower quadrant abdominal pain, nausea, epigastric pain TISSUE SUBMITTED: Biliary stent for cytology DIAGNOSIS CYTOLOGY Biliary stent fluid for cytology (cytospins and cellblock): Negative for malignant cells. See comment. 09/24/2024 COMMENT Clinical correlation and appropriate follow up are necessary. CYTOLOGY STUDY Slides are reviewed. CYTOLOGY GROSS Received is one 10cm blue stent with 0.2 ml of light yellow fluid labeled with the patient's name and and designated per the requisition as Biliary stent. Submitted for cytology preparation including cell block. Mr 09/23/2024 TC:5 CPT: 64360,46643
--- NOTE | 2024-09-23 12:04 | PCM.PRE.AN2 ---
ASA Classification* ASA Classification ASA Classification: 2 Assessment & Plan Anesthesia* Anesthesia Assessment Anesthesia Assessment: Discussed sedation and/or anesthesia options, risks, benefits, and alternatives with patient/parents/legal guardian/POA. Questions invited. The patient/parents/legal guardian/POA seems to understand and agrees to proceed with anesthesia plan. Reviewed the physical assessment, medical history, allergy history and patient home medications list prior to surgery/procedure/anesthetic and documented any changes. Performed airway and anesthesia risk assessments. Anesthesia Type Anesthesia Type: MAC Anesthesia Focused Assessment* Temperature: 98.0 F Pulse Rate: 83 Blood Pressure: 163/101 Respiratory Rate: 12 Pulse Ox: 100 Airway Assessment Mouth opens: >3 cm Mallampati Score: II Focused Labs Anesthesia Preop lab: CBC WBC 8.4 K/mm3 (4.4-11.0) 09/17/24 08:40 RBC 4.29 M/mm3 (4.2-5.4) 09/17/24 08:40 Hgb 12.6 g/dL (12.0-15.0) 09/17/24 08:40 Hct 40.3 % (37-47) 09/17/24 08:40 Plt Count 336 K/mm3 (150-450) 09/17/24 08:40 CHEMISTRY Potassium 3.7 mmol/L (3.5-5.1) 09/17/24 08:40 Sodium 139 mmol/L (136-145) 09/17/24 08:40 Magnesium 2.1 mg/dL (1.6-2.6) 09/02/21 04:50 Phosphorus 3.5 mg/dL (2.5-4.9) 09/02/21 04:50 BUN 10 mg/dL (7-18) 09/17/24 08:40 Creatinine 0.76 mg/dL (0.55-1.02) 09/17/24 08:40 Glucose 158 mg/dL (74-106) H 09/17/24 08:40 TSH 1.05 uIU/mL (0.358-3.74) 04/04/23 13:39 COAG Pre-Assessment Diagnosis/Proposed Procedure Planned Operative Procedure(s): ERCP Anesthesia History Anesthesia History - certified detention deputy: Anesthesia History - certified detention deputy Hx Hospitalization Yes: 08/16/2024 09/20/24 10:18 Any Problems With Anesthesia No 09/20/24 10:18 Cholinesterase deficiency No 09/20/24 10:18 You/Your Family Experience No 09/20/24 10:18 fever (hyperthermia) with Relationship Recent Exposure to Contagious No 09/23/24 11:31 Disease Does patient have nerve No 09/20/24 10:18 stimulator Patient instructed to have device shut off --Does patient have Pacemaker No 09/23/24 11:31 or ICD? When Was Last Pacemaker Check QUESTION #4 FULL TEXT: You/Your Family Experience fever (hyperthermia) with Anesthesia Last Oral Intake Last Oral intake: Last Oral Intake NPO since 06:00 09/23/24 11:31 Meds taken in AM with sips of Yes 09/23/24 11:31 water? Meds patient instructed to take am of surgery PONV PONV - certified detention deputy: PONV - certified detention deputy Female Yes 09/20/24 10:18 HX of Motion Sickness No 09/20/24 10:18 HX of N/V After Surgery No 09/20/24 10:18 Non-Smoker No 09/20/24 10:18 Duration of Surgery greater No 09/20/24 10:18 than 60 minutes Number of Risk Factors 1 09/20/24 10:18 PONV Score Low Risk 09/20/24 10:18 Height & Weight Height & Weight: Anesthesia: Height & Weight Height 5 ft 4 in 09/23/24 11:31 Weight: 51 kg 09/23/24 11:31 Body Mass Index (BMI) 19.3 09/23/24 11:31 Respiratory Assessment Respiratory Assessment - certified detention deputy: Respiratory Tract Infection Hx - certified detention deputy Hx Respiratory Tract Infection No 09/20/24 10:18 STOP Sleep Apnea STOP Sleep Apnea - certified detention deputy: STOP Sleep Apnea - certified detention deputy Hx Hypertension No 09/20/24 10:18 Hx Sleep Apnea No 09/20/24 10:18 CPAP No 09/20/24 10:18 BIPAP Do you snore loudly (louder No 09/20/24 10:18 than talking or can be heard Do you often feel tired/ No 09/20/24 10:18 fatigued/ sleepy during daytime? Has anyone observed you stop No 09/20/24 10:18 breathing during sleep? STOP Results Negative 09/20/24 10:18 QUESTION #5 FULL TEXT : Do you snore loudly (louder than talking or can be heard through closed doors)? 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 Specify any problems Hx of Preganancy in last 3 No 09/20/24 10:18 Months Nurse Filling Out Transfusion VCHRISTIN 09/20/24 10:18 & Questions: Date: 09/20/24 09/20/24 10:18 Time: 10:19 09/20/24 10:18 Patient unable to answer at this time (ie. 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 Osteopenia Depression Anxiety IBS (irritable bowel syndrome) Arthritis Home Medications ?Medication ?Instructions ?Recorded ?Last Taken ?Type acetaminophen 500 mg tablet 500 - 1,000 mg PO Q6H PRN Pain 04/21/21 09/22/24 History (Tylenol Extra Strength) denosumab 60 mg/mL subcutaneous 60 mg subcut [id number] #1 mL 01/26/23 09/18/24 Rx syringe (Prolia) alprazolam 0.25 mg tablet 0.25 mg PO TID 08/01/24 09/22/24 History octreotide,microspheres 20 mg 20 mg IM Q4W #1 ea 08/14/24 Unknown Rx intramuscular susp, extended release (Sandostatin LAR Depot) apixaban 5 mg tablet (Eliquis) 5 mg PO BID #180 tabs 09/18/24 09/23/24 Rx calcium carb-ergocalciferol (vit 1 tab PO DAILY 09/20/24 09/22/24 History D2) 600 mg calcium-200 unit tablet cholecalciferol (vitamin D3) 25 25 mcg PO DAILY 09/20/24 09/21/24 History mcg (1,000 unit) capsule (Vitamin D3) escitalopram oxalate 10 mg tablet 10 mg PO DAILY 09/20/24 09/22/24 History multivitamin (Daily Multi-Vitamin 1 tab PO DAILY 09/20/24 09/21/24 History tablet) Allergy/AdvReac Type Severity Reaction Status Date / Time ibuprofen (From Advil) AdvReac Intermediate stomach Verified 09/23/24 11:29 problems Family History Mother Breast cancer Father Cancer Surgical History History of ERCP S/P laparoscopic cholecystectomy Hx laparoscopic cholecystectomy History of right hemicolectomy (04/21/21) History of partial hysterectomy History of colonoscopy Social History Smoking Status: Current every day smoker tobacco type: cigarettes alcohol intake: current alcohol intake frequency: holidays/special occasions only Alcohol type: wine substance use type: does not use what type of physical activity do you participate in: walking and bicycling Review of Systems (Anesthesia) ROS Narrative System reviewed and no additional complaints, except as documented.
--- NOTE | 2024-09-23 12:15 | HP.PCM_ITS ---
HPI - General General Date of Admission: 09/23/24 Date of Service: 09/23/24 Chief Complaint: stent removal HPI Narrative Chief Complaint: abdominal pain Details: JONO GARCIA, is a 69 F who presents to the office today for - presents today with - states patient will be scheduled next week for stent removal - she did not have an appt with our office today - contacted office several times per staff, patient and demanding stent be removed next week - RLQ sharp pain and epigastric sharp pain - reports epigastric pain is the worst - pain presents after eating - but reports it is also constant - nausea after eating, denies any emesis - denies any fevers - she reports she experiencing night sweats - very concerned with her weight loss - reports she is down 6 lbs in 1 week - having a BM daily - has not yet had a BM today - denies any bleeding - denies any diarrhea CBC and CMP were unremarkable today [facility] Medical History History of echocardiogram DVT (deep venous thrombosis) Hx of fracture of leg Vulvar lesion Tobacco use disorder, continuous Abnormal EKG Dizziness Wears dentures Wears glasses History of IBS Smoker 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 Osteopenia Depression Anxiety IBS (irritable bowel syndrome) Arthritis Home Medications ?Medication ?Instructions ?Recorded ?Last Taken ?Type acetaminophen 500 mg tablet 500 - 1,000 mg PO Q6H PRN Pain 04/21/21 09/22/24 History (Tylenol Extra Strength) denosumab 60 mg/mL subcutaneous 60 mg subcut [id number] #1 mL 01/26/23 09/18/24 Rx syringe (Prolia) alprazolam 0.25 mg tablet 0.25 mg PO TID 08/01/24 09/22/24 History octreotide,microspheres 20 mg 20 mg IM Q4W #1 ea 08/14/24 Unknown Rx intramuscular susp, extended release (Sandostatin LAR Depot) apixaban 5 mg tablet (Eliquis) 5 mg PO BID #180 tabs 09/18/24 09/23/24 Rx calcium carb-ergocalciferol (vit 1 tab PO DAILY 09/20/24 09/22/24 History D2) 600 mg calcium-200 unit tablet cholecalciferol (vitamin D3) 25 25 mcg PO DAILY 09/20/24 09/21/24 History mcg (1,000 unit) capsule (Vitamin D3) escitalopram oxalate 10 mg tablet 10 mg PO DAILY 09/20/24 09/22/24 History multivitamin (Daily Multi-Vitamin 1 tab PO DAILY 09/20/24 09/21/24 History tablet) Allergy/AdvReac Type Severity Reaction Status Date / Time ibuprofen (From Advil) AdvReac Intermediate stomach Verified 09/23/24 11:29 problems Family History Mother Breast cancer Father Cancer Surgical History History of ERCP S/P laparoscopic cholecystectomy Hx laparoscopic cholecystectomy History of right hemicolectomy (04/21/21) History of partial hysterectomy History of colonoscopy Social History Smoking Status: Current every day smoker tobacco type: cigarettes alcohol intake: current alcohol intake frequency: holidays/special occasions only Alcohol type: wine substance use type: does not use what type of physical activity do you participate in: walking and bicycling Vital Signs Vital Signs Vital Signs: 09/23/24 11:31 09/23/24 11:31 09/23/24 12:04 Temperature 98.0 F 98.0 F Temperature Source Temporal Pulse Rate 83 83 Respiratory Rate 12 12 Respiratory Pattern Normal Blood Pressure 163/101 H 163/101 H Blood Pressure Mean 121 Blood Pressure Source Monitor Blood Pressure Position Semi-Fowlers Blood Pressure Location Right Arm Pulse Ox 100 100 Oxygen Delivery Method Room Air Weight Weight: 112 lb 6.972 oz Body Mass Index (BMI) 19.3 Physical Exam Const alert, oriented x3, no apparent distress and healthy appearing General Appearance: cooperative GI normal to inspection, nondistended, normoactive bowel sounds, soft to palpation, non-tender and non-distended Percussion: normal to percussion Rectal Exam: deferred Assessment & Plan Assessment/Plan (1) RLQ abdominal pain: (2) Nausea: (3) Epigastric pain: (4) S/P ERCP: PLAN: Plan Patient and presented in office today requesting stent be removed. She was seen in the office on 09/11/2024 at which time she had reported resolution in constant abdominal pain, but was experiencing intermittent mild epigastric discomfort. She was prescribed dicyclomine; however, she reports one dose caused her to feel odd and she discontinued use. We have again reviewed potential s/e of anticholinergic medications and she will avoid any continued use of dicyclomine. Today she reports for the past week she has been experiencing constant epigastric abdominal pain. Abdominal exam reveals mild epigastric discomfort and moderate RLQ discomfort with palpation. She reports having a BM daily and is eating a normal diet. Weight today on our scale is 115.6lbs this is down from 119lbs on 09/11/2024. CBC and CMP were unremarkable today. I have ordered a plain film abdominal x-ray as I do not believe the abdominal pain she is experiencing is related to CBD stent. She understands the office is working to arrange ERCP with stent removal and will contact her once this has been scheduled. I have examined the patient and the H&P has been reviewed. There are no clinical changes since date of exam.
--- NOTE | 2024-09-23 13:51 | PCM.POST.ANE ---
Anesthesia: Postop Eval I Current Vital Signs Temperature: 97 F Pulse Rate: 74 Blood Pressure: 179/97 Respiratory Rate: 18 Pulse Ox: 98 Oxygen Delivery Method: Room Air Assessment Airway patent: Yes Spontaneous unlabored respirations: Yes Mental status: Asleep nausea: No Vomiting: No Anesthesia Complication: No Fluid Hydration Crystalloid volume administer (ml): 60 Total IV fluid infused: 60 Progress Note Anesthesia document: Postop Eval 1 completed: Yes
--- NOTE | 2024-09-23 14:11 | OP.ERCP_ITS ---
Patient Name: Tonya Mclain Procedure Date: 09/23/2024 12:00 PM Date of : 1955 Age: 69 Procedure: ERCP Indications: Bile duct stone(s), Biliary stent removal Providers: Robosn Smith DO Referring MD: Demarco Epstein Medicines: See the Anesthesia note for documentation of the administered medications Patient Profile: This is a 69 year old female. Refer to note in patient chart for documentation of history and physical. Patient has symptoms of acute abdominal cramping, acute right upper quadrant abdominal pain and chronic jaundice. She is status post laparoscopic cholecystectomy within the past year. Complications: No immediate complications. Procedure: Pre-Anesthesia Assessment: - Prior to the procedure, a History and Physical was performed, and patient medications and allergies were reviewed. The patient is competent. The risks and benefits of the procedure and the sedation options and risks were discussed with the patient. All questions were answered and informed consent was obtained. Patient identification and proposed procedure were verified by the physician in the pre-procedure area. Mental Status Examination: alert and oriented. Airway Examination: normal oropharyngeal airway and neck mobility. Respiratory Examination: clear to auscultation. CV Examination: normal. Prophylactic Antibiotics: The patient does not require prophylactic antibiotics. Prior Anticoagulants: The patient has taken no anticoagulant or antiplatelet agents except for NSAID medication. ASA Grade Assessment: II - A patient with mild systemic disease. After reviewing the risks and benefits, the patient was deemed in satisfactory condition to undergo the procedure. The anesthesia plan was to use monitored anesthesia care (MAC). Immediately prior to administration of medications, the patient was re-assessed for adequacy to receive sedatives. The heart rate, respiratory rate, oxygen saturations, blood pressure, adequacy of pulmonary ventilation, and response to care were monitored throughout the procedure. The physical status of the patient was re-assessed after the procedure. After obtaining informed consent, the scope was passed under direct vision. Throughout the procedure, the patient's blood pressure, pulse, and oxygen saturations were monitored continuously. The Duodenoscope was introduced through the mouth, and advanced to the duodenum and used to inject contrast into the bile duct. The ERCP was accomplished without difficulty. The patient tolerated the procedure well. Scope In: 12:39:43 PM Scope Out: 1:32:16 PM Total Procedure Duration Time 0 hours 52 minutes 33 seconds Findings: The busperson film was normal. The esophagus was successfully intubated under direct vision. The scope was advanced to a normal major papilla in the descending duodenum without detailed examination of the pharynx, larynx and associated structures, and upper GI tract. The upper GI tract was grossly normal. The bile duct was deeply cannulated with the short-nosed traction sphincterotome. Contrast was injected. I personally interpreted the bile duct images. There was brisk flow of contrast through the ducts. Image quality was adequate. Contrast extended to the biliary pancreatic junction. Contrast extended to the main bile duct. Contrast extended to the bifurcation. Contrast extended to the hepatic ducts. Contrast extended to the entire biliary tree. Opacification of the entire biliary tree except for the cystic duct and gallbladder, biliary pancreatic junction, main bile duct, common bile duct, common hepatic duct, hepatic duct bifurcation, left and right hepatic ducts and all intrahepatic branches and entire biliary tree was successful. The maximum diameter of the ducts was 15 mm. The lower third of the main bile duct and common bile duct contained one stone, which was 6 mm in diameter. The entire opacified area, biliary pancreatic junction, common bile duct, left and right hepatic ducts and all intrahepatic branches and entire biliary tree were moderately dilated, with a stone causing an obstruction. The largest diameter was 15 mm. A cholecystectomy had been performed. A straight Roadrunner wire was passed into the biliary tree. A 5 mm biliary sphincterotomy was made with a traction (standard) sphincterotome using ERBE electrocautery. There was no post-sphincterotomy bleeding. The biliary tree was swept with a 15 mm balloon starting at the biliary pancreatic junction, upper third of the main bile duct, middle third of the main bile duct, lower third of the main duct, bifurcation, left intrahepatic duct(s), left main hepatic duct, right intrahepatic duct(s) and right main hepatic duct. Sludge was swept from the duct. All stones were removed. One stent was removed from the biliary tree using a snare and sent for cytology. The stent was found to be partially occluded via the water column test. Dilation of the lower third of the main bile duct, the hepatic duct bifurcation, the left main hepatic duct, the right main hepatic duct and the left and right hepatic ducts and all intrahepatic branches with a 12-13.5-15 mm x 5.5 cm CRE balloon dilator was successful. Impression: - The entire biliary tree, left and right hepatic ducts and all intrahepatic branches and common bile duct were moderately dilated, with a stone causing an obstruction. - The patient has had a cholecystectomy. - Choledocholithiasis was found. Complete removal was accomplished by biliary sphincterotomy and balloon extraction. - A biliary sphincterotomy was performed. - The biliary tree was swept. - One stent was removed from the biliary tree. - The lower third of the main bile duct, the hepatic duct bifurcation, the left main hepatic duct, the right main hepatic duct and the left and right hepatic ducts and all intrahepatic branches were successfully dilated. Procedure Code(s): --- Professional --- 79982, 59, Endoscopic retrograde cholangiopancreatography (ERCP); with trans-endoscopic balloon dilation of biliary/pancreatic duct(s) or of ampulla (sphincteroplasty), including sphincterotomy, when performed, each duct 26260, 59,51, Endoscopic retrograde cholangiopancreatography (ERCP); with trans-endoscopic balloon dilation of biliary/pancreatic duct(s) or of ampulla (sphincteroplasty), including sphincterotomy, when performed, each duct 28871, 59, Endoscopic retrograde cholangiopancreatography (ERCP); with trans-endoscopic balloon dilation of biliary/pancreatic duct(s) or of ampulla (sphincteroplasty), including sphincterotomy, when performed, each duct 10805, Endoscopic retrograde cholangiopancreatography (ERCP); with removal of foreign body(s) or stent(s) from biliary/pancreatic duct(s) 13964, Endoscopic retrograde cholangiopancreatography (ERCP); with removal of calculi/debris from biliary/pancreatic duct(s) 00730, 26, Endoscopic catheterization of the biliary ductal system, radiological supervision and interpretation CPT copyright 2021 [employer]. All rights reserved. The codes documented in this report are preliminary and upon pattern changer and repairer review may be revised to meet current compliance requirements. Robson Smith DO 09/23/2024 2:11:20 PM This report has been signed electronically. Number of Addenda: 0 Note Initiated On: 09/23/2024 12:00 PM
--- NOTE | 2024-09-23 14:12 | OP.CCLET_ITS ---
09/23/2024 Demarco Epstein Re : ERCP procedure for Tonya Mclain Dear Dr. Epstein This procedure was performed on Monday, September 23, 2024. My impressions and recommendations are as follows: Impressions : - The entire biliary tree, left and right hepatic ducts and all intrahepatic branches and common bile duct were moderately dilated, with a stone causing an obstruction. - The patient has had a cholecystectomy. - Choledocholithiasis was found. Complete removal was accomplished by biliary sphincterotomy and balloon extraction. - A biliary sphincterotomy was performed. - The biliary tree was swept. - One stent was removed from the biliary tree. - The lower third of the main bile duct, the hepatic duct bifurcation, the left main hepatic duct, the right main hepatic duct and the left and right hepatic ducts and all intrahepatic branches were successfully dilated. Recommendations : My findings are described in the full procedure note, which is enclosed. If I can be of further assistance, please feel free to contact me at . Sincerely, Robson Smith DO 09/23/2024 2:11:20 PM This report has been signed electronically.
[2024-09-23] MEDS: Lactated Ringers 500 ML 999 ML IV (14:45)
[2024-09-23] MEDS: Labetalol (Prefilled) 20 MG/4 ML Vial 10 MG IV (16:40)
--- NOTE | 2024-09-23 17:14 | PCM.POSTANE2 ---
Anesthesia Postop Eval I Sum Postop Eval Completion status Anesthesia document: Postop Eval 1 completed: Yes Anesthesia Postop Eval I Summary Anesthesia Postop Eval I Summary: Anesthesia Postop Eval I: Assessment Summary Airway patent Yes 09/23/24 13:51 [email or web address] Spontaneous unlabored Yes 09/23/24 13:51 [email or web address] respirations Mental status Asleep 09/23/24 13:51 [email or web address] nausea No 09/23/24 13:51 [email or web address] Vomiting No 09/23/24 13:51 [email or web address] Anesthesia Postop Eval I: Fluid Summary Crystalloid volume administer 60 09/23/24 13:51 [email or web address] (ml) Colloids volume administered ( ml) Blood Product volume administered (ml) Total IV fluid infused 60 09/23/24 13:51 [email or web address] Anesthesia Postop Eval I: Summary Notes Anesthesia Complication No 09/23/24 13:51 [email or web address] Anesthesia Complication Comment: Post-operative progress note Anesthesia: Postop Eval II Evaluation Mental status: Awake Pain Level: 0 nausea: No Vomiting: No
== END 2024-09-23 18:15 | disposition home or self-care (01) ==
LOC: EN 10:40 → AC 11:25
PROVIDERS: PCP Family Medicine; Referring Provider Family Medicine; Visit Provider Internal Medicine Gastroenterology
PROC: (CPT 43260; principal; 2024-09-23 11:40)
DX: Z46.59 Encounter for fitting and adjustment of other gastrointestinal appliance and device (principal); K80.51 Calculus of bile duct without cholangitis or cholecystitis with obstruction; Z79.01 Long term (current) use of anticoagulants; Z86.718 Personal history of other venous thrombosis and embolism; Z79.899 Other long term (current) drug therapy; F17.210 Nicotine dependence, cigarettes, uncomplicated; Z90.49 Acquired absence of other specified parts of digestive tract
CPT/HCPCS: 43277; 43275; 74330; 76000; 88108; 88304; 88305; 88313; A4216; C1726; J2405

== ENCOUNTER → 2024-12-19 | Outpatient (CLI) | payer MEDICARE, SELFPAY ==
--- NOTE | 2024-12-19 10:15 | BI_ITS ---
PROCEDURE: SCRN MAMM (CAD)W/LISA BILAT REASON FOR EXAM: F, Age 69 y/o , SCREENING. Mother with breast cancer. TECHNIQUE: Bilateral screening digital breast tomosynthesis with 2D and 3D images. Computer aided detection. COMPARISON: Prior exam(s) dating back to December 18, 2023.. FINDINGS: The breasts are heterogeneously dense which may obscure small masses. Stable small bilateral partially calcified retroareolar nodules. No suspicious masses, areas of developing architectural distortion, or suspicious calcifications. Stable examination. BI/SCRN MAMM (CAD)W/LISA BILAT IMPRESSION: BI-RADS 2: BENIGN. RECOMMEND ANNUAL MAMMOGRAPHIC SCREENING. Follow-up code: Routine Follow-up The patient will be notified of the results by letter. Reading Location: [id number]
== END | disposition home or self-care (01) ==
LOC: OPBI 10:01
PROVIDERS: PCP Family Medicine; Referring Provider Family Medicine; Visit Provider Family Medicine
DX: Z12.31 Encounter for screening mammogram for malignant neoplasm of breast (principal)
CPT/HCPCS: 77063; 77067

== ENCOUNTER → 2025-01-08 | Outpatient (CLI) | payer MEDICARE, SELFPAY ==
--- NOTE | 2025-01-08 12:33 | RAD_ITS ---
EXAM: Scapula x-ray CLINICAL HISTORY: Pain of scapula, along the medial border x1 month no injury COMPARISON: None available TECHNIQUE: Three views FINDINGS: The scapula appears within limits without lesion identified. No acute fracture or dislocation. Nonacute appearing left anterolateral 7th rib fracture deformity suggested. Moderate humeral head spurring, osteophyte formation, shoulder osteoarthrosis. Visualized left lung appears clear. A couple of skin folds incidentally noted. Lower cervical spondylosis/discogenic change. RAD/Scapula IMPRESSION: Scapula appears within limits with other findings as above. Reading Location: [id number]
== END | disposition home or self-care (01) ==
LOC: MTRAD 12:33
PROVIDERS: PCP Family Medicine; Referring Provider Family Medicine; Visit Provider Family Medicine
DX: N95.8 Other specified menopausal and perimenopausal disorders (principal)
CPT/HCPCS: 73010

== ENCOUNTER → 2025-01-28 | Outpatient (CLI) | payer MEDICARE, SELFPAY ==
--- NOTE | 2025-01-28 07:41 | CT_ITS ---
PROCEDURE: CT CHEST, ABD, PEL W/CONTRAST 01/28/2025 REASON FOR EXAM: SMALL INSTESTINE CA-IV ONLY Prior small-bowel resection. TECHNIQUE: Chest, abdomen and pelvis CT with intravenous contrast. Coronal and Sagittal reconstruction series were provided. One or more dose reduction techniques were used (e.g., Automated exposure control, adjustment of the mA and/or kV according to patient size, use of iterative reconstruction technique. PATIENT PREPARATION: Per protocol ORAL CONTRAST TYPE: None. CONTRAST: Isovue-300 VOLUME: 100mL RADIATION DOSE SUMMARY: CTDlvol: 9.25 mGy DLP: 511.85 mGycm COMPARISON: Comparison is made with prior study dated March 11, 2024. FINDINGS: CT CHEST: Hardware: None Lymph nodes: No significant lymph node seen. Heart and Vasculature: The heart is not enlarged. Atherosclerotic calcifications of the thoracic aorta. Pulmonary arteries are unremarkable. Coronary artery calcification. Lungs and Airways: There is an 8.2 mm noncalcified nodule in the right upper lobe laterally as seen on axial image number 64 and coronal image number 122. Pleura: Unremarkable Bones: Degenerative changes of the thoracic spine. Increased kyphosis. CT ABDOMEN/PELVIS: Liver: Normal size. No mass. Gallbladder: Surgically absent. Spleen: Normal size. Pancreas: Normal size without evidence of mass surrounding inflammation or ductal dilation. Adrenals: Unremarkable Kidneys: Normal renal sizes. No hydronephrosis. Bladder: Reproductive Organs: Bowel: Surgical anastomosis seen within the small bowel in the right lower quadrant. There is evidence of fluid-filled dilated distal small bowel loops. Early small-bowel obstruction or incomplete small bowel obstruction should be ruled out. Small amount of fecal material and gas seen in the colon. Appendix: Not visualized. Lymph nodes: Unremarkable. Vasculature: Mild diffuse atherosclerotic calcifications are noted. Peritoneum / Retroperitoneum: Bones: Degenerative changes of the spine. Levoscoliosis. CT/CT Chest, Abd, Pel w/Contrast IMPRESSION: 8.2 mm noncalcified nodule in the right upper lobe as seen on axial image numbe r 64 and coronal image number 122 Dilated distal small bowel loops with fluid and mildly thickened wall. Follow- up recommended. Reading Location: [place] [id number]
== END | disposition home or self-care (01) ==
LOC: CT 07:41
PROVIDERS: PCP Family Medicine; Referring Provider Internal Medicine Medical Oncology; Visit Provider Internal Medicine Medical Oncology
DX: C17.9 Malignant neoplasm of small intestine, unspecified (principal)
CPT/HCPCS: 71260; 74177; Q9967

== ENCOUNTER 2025-05-08 06:32 | Emergency (ER) | payer MEDICARE, SELFPAY ==
[2025-05-08 06:33] VITALS: BP 183/98; PULSE 81; RESP 16; TEMP 36.6; O2SAT 100; BMI 18.5
[2025-05-08 06:35] VITALS: BP 185/105; PULSE 81; RESP 16; TEMP 36.6; O2SAT 100
--- NOTE | 2025-05-08 07:07 | EKG12_ITS ---
Test Reason : GENERAL Blood Pressure : */* mmHG Vent. Rate : 67 BPM Atrial Rate : 67 BPM P-R Int : 176 ms QRS Dur : 70 ms QT Int : 422 ms P-R-T Axes : 72 -80 70 degrees QTcB Int : 445 ms Normal sinus rhythm Left anterior fascicular block Possible Inferior infarct (cited on or before 16-Aug-2024) Abnormal ECG Confirmed by SALVADOR CORNELL, NIMESH ([id number]), editorial cartoonist OMA MAN ([id number]) on 05/12/2025 8:19:19 AM Referred By: Confirmed By: NIMESH FRANCO MD
--- NOTE | 2025-05-08 07:08 | CT_ITS ---
PROCEDURE: ABDOMEN/PELVIS W IV CONT ONLY 05/08/2025 REASON FOR EXAM: EPIGASTRIC ABDOMINAL PAIN TECHNIQUE: ABDOMEN/PELVIS W IV CONT ONLY Coronal and Sagittal reconstruction series were provided. CONTRAST: Isovue 370 VOLUME: 100 mL One or more dose reduction techniques were used (e.g., Automated exposure control, adjustment of the mA and/or kV according to patient size, use of iterative reconstruction technique. RADIATION DOSE SUMMARY: CTDlvol: 12.33 mGy DLP: 255.97 mGycm COMPARISON: 01/28/2025 FINDINGS: Lung bases: Clear Liver: Normal size. No mass. Gallbladder: Surgically absent. Spleen: Normal size. Pancreas: Normal size without evidence of mass surrounding inflammation or ductal dilation. Adrenals: Unremarkable Kidneys: No obstructive uropathy or suspicious solid renal lesion. Bladder: Unremarkable Reproductive Organs: Uterus is absent, no suspicious cystic mass or free fluid Bowel: Bowel loops are unremarkable, retained stool noted in the colon. Stable appearance of the previously noted surgical anastomoses. No evidence of leak Appendix: Not visualized Lymph nodes: No suspicious enlarged mesenteric or retroperitoneal lymph nodes. There are subcentimeter in short axis dimension periaortic lymph nodes likely reactive. Vasculature: Peripheral calcifications in the ectatic abdominal aorta without aneurysm or dissection. Peritoneum / Retroperitoneum: No free air or fluid Bones: Bony structures show degenerative change no acute or chronic fracture CT/Abdomen/Pelvis W IV Cont ONLY IMPRESSION: No suspicious solid organ abnormality, sequela from remote cholecystectomy No free intraperitoneal fluid, air, or suspicious adenopathy Stable surgical anastomoses, no evidence of leak Diffuse atherosclerosis Degenerative bony changes Reading Location: [id number]
--- NOTE | 2025-05-08 07:14 | EX.ED.DYSGE1 ---
HPI History of Present Illness Chief Complaint: Abd Pain Narrative Narrative: Chief complaint and HPI: Epigastric abdominal pain. 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 Onset of symptoms 2 AM. Awoke her from sleep. Described as sharp. Associated symptom nausea. States it feels similar to her previous gallstones. Denies any fever, chills, shortness of breath, chest pain, vomiting, constipation, diarrhea, dysuria. Review of systems: See HPI Medications: As listed on the chart Allergies: As listed on the chart PFSH: Per chart Vital signs: As listed on the chart. Reviewed. Physical exam: Gen: A&O x3, NAD Head: Normocephalic, atraumatic Eyes: No sclera icterus, conjunctiva clear ENT: Moist mucous membranes Neck: Trachea midline, No JVD CV: RRR, no murmurs, no peripheral edema Resp: Lungs CTA BL, no w/r/c GI: Abd soft, non-distended, tender to palpation in the epigastrium, no r/r Musc: Full ROM, no deformity Skin: Warm, dry Neuro: Alert, oriented, grossly intact, sensation intact Psych: Cooperative, appropriate mood and affect [facility] Medical History Skin lesion of right leg History of echocardiogram DVT (deep venous thrombosis) Hx of fracture of leg Vulvar lesion Tobacco use disorder, continuous Abnormal EKG Dizziness Wears dentures Wears glasses History of IBS Smoker 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 Osteopenia Depression Anxiety IBS (irritable bowel syndrome) Arthritis Home Medications ?Medication ?Instructions ?Recorded ?Last Taken ?Type acetaminophen 500 mg tablet 500 - 1,000 mg PO Q6H PRN Pain 04/21/21 09/22/24 History (Tylenol Extra Strength) denosumab 60 mg/mL subcutaneous 60 mg subcut [id number] #1 mL 01/26/23 09/18/24 Rx syringe (Prolia) octreotide,microspheres 20 mg 20 mg IM Q4W #1 ea 08/14/24 Unknown Rx intramuscular susp, extended release (Sandostatin LAR Depot) calcium carb-ergocalciferol (vit 1 tab PO DAILY 09/20/24 09/22/24 History D2) 600 mg calcium-200 unit tablet cholecalciferol (vitamin D3) 25 25 mcg PO DAILY 09/20/24 09/21/24 History mcg (1,000 unit) capsule (Vitamin D3) multivitamin (Daily Multi-Vitamin 1 tab PO DAILY 09/20/24 09/21/24 History tablet) psyllium husk 3.4 gram/5.4 gram 2 tbsp PO QDAY 10/15/24 Unknown History oral powder (Metamucil) alprazolam 0.25 mg tablet 0.25 mg PO TID #90 tabs 01/29/25 Unknown Rx magnesium 250 mg tablet 250 mg PO QDAY 01/29/25 Unknown History tramadol 50 mg tablet 50 mg PO Q8H PRN pain #30 tabs 01/29/25 Unknown Rx apixaban 2.5 mg tablet 2.5 mg PO BID #180 tabs 03/12/25 Unknown Rx escitalopram oxalate 10 mg tablet 10 mg PO DAILY #90 TABLETS 03/25/25 Unknown Rx doxycycline monohydrate 100 mg 100 mg PO BID #20 caps 04/16/25 Unknown Rx capsule Allergy/AdvReac Type Severity Reaction Status Date / Time ibuprofen (From Advil) AdvReac Intermediate stomach Verified 05/08/25 06:37 problems Family History Mother Breast cancer Father Cancer Surgical History History of ERCP S/P laparoscopic cholecystectomy Hx laparoscopic cholecystectomy History of right hemicolectomy (04/21/21) History of partial hysterectomy History of colonoscopy Social History Smoking Status: Current every day smoker tobacco type: cigarettes alcohol intake: current alcohol intake frequency: holidays/special occasions only Alcohol type: wine substance use type: does not use what type of physical activity do you participate in: walking and bicycling EXAM Physical Exam Const Vital Signs: 05/08/25 06:33 05/08/25 06:35 05/08/25 08:32 Temperature 97.8 F 97.8 F Temperature Source Oral Oral Pulse Rate 81 81 73 Respiratory Rate 16 16 18 Blood Pressure 183/98 H 185/105 H 187/87 H Blood Pressure Mean 126 131 120 Pulse Ox 100 100 97 Oxygen Delivery Method Room Air Room Air 05/08/25 10:00 Temperature Temperature Source Pulse Rate 77 Respiratory Rate 18 Blood Pressure 177/88 H Blood Pressure Mean 117 Pulse Ox 99 Oxygen Delivery Method MDM MDM MDM Narrative Medical decision making narrative: 70-year-old female with past medical history of DVT on Eliquis, depression, anxiety, 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 Differential diagnosis includes but is not limited to pancreatitis, gastritis, PUD, biliary/liver disease, colitis, suspect less likely ACS. NS bolus, morphine, Zofran ordered for symptoms. Abdominal pain workup ordered including CT abdomen pelvis. On chart review, patient had a laparoscopic cholecystectomy by Dr. Matt. That time she had choledocholithiasis in which an ERCP with stone extraction and stent placement was performed on 08/16/2024. Patient had another ERCP performed in September 2020 for which she had choledocholithiasis again. Stone was removed by biliary sphincterotomy and balloon extraction. EKG reviewed see below. CBC unremarkable without leukocytosis or anemia. CMP unremarkable without significant electrolyte abnormality, AVTAR. Patient has mild AST transaminitis of 39. She has had this in the past. ALT unremarkable including alkaline phosphatase and bilirubin. Troponin unremarkable x 2. Lipase unremarkable. Lactic acid unremarkable. CT abdomen pelvis shows no acute intra-abdominal pathology. On reevaluation, patient states her abdominal pain has resolved. At this point in time unclear etiology. May have been GERD/gastritis. Recommend following up with PCP and Dr. Smith. Return precautions explained. She confirmed understanding of plan. Patient stable to discharge home EKG: Interpreted by me/EM physician: EKG shows normal sinus rhythm with left anterior fascicular block. Heart rate 67. Similar to previous EKG in August 2024 Impression: 1. Epigastric abdominal pain Lab Data Labs: Laboratory Results - last 24 hr 05/08/25 05/08/25 07:34 09:24 WBC 9.5 RBC 4.40 Hgb 13.7 Hct 41.7 MCV 94.8 MCH 31.1 MCHC 32.9 RDW Std Deviation 46.9 H RDW Coeff of Reece 13.3 Plt Count 189 MPV 9.0 Immature Gran % (Auto) 0.200 Neut % (Auto) 70.1 H Lymph % (Auto) 22.3 [place] % (Auto) 6.6 Eos % (Auto) 0.2 Baso % (Auto) 0.6 Absolute Neuts (auto) 6.7 Absolute Lymphs (auto) 2.12 Nucleated RBC % 0 Sodium 139 Potassium 4.6 Chloride 101 Carbon Dioxide 25.9 Anion Gap 12 BUN 16 Creatinine 0.72 Estim Creat Clear Calc 50.51 Est GFR (MDRD) Non-Af 90 BUN/Creatinine Ratio 22.4 H Glucose 129 H Lactic Acid 1.1 Calcium 9.4 Total Bilirubin 0.38 Direct Bilirubin 0.16 AST 39 H ALT 31 Alkaline Phosphatase 70 Troponin T High Sens 9 Troponin T Hi Sens 2 Hr 7 Total Protein 7.2 Albumin 4.3 Globulin 3.0 Lipase 29 Radiography Diagnostic Testing: Clinical Impression(s) from Imaging Studies Abdomen/Pelvis CT 05/08/25 07:08 IMPRESSION: No suspicious solid organ abnormality, sequela from remote cholecystectomy No free intraperitoneal fluid, air, or suspicious adenopathy Stable surgical anastomoses, no evidence of leak Diffuse atherosclerosis Degenerative bony changes Reading Location: [id number] Discharge Plan Triage Chief Complaint: Abd Pain ED Provider: James Roche Dx/Rx/DC Orders Clinical Impression: Abdominal pain, acute, epigastric Instructions: ED Abdominal Pain Unkn Cause Fem Prescriptions: No Action Metamucil 3.4 gram/5.4 gram powder 2 tbsp PO QDAY Rx Instructions: mix into at least 8 oz of water or juice before administering magnesium 250 mg tablet 250 mg PO QDAY alprazolam 0.25 mg tablet 0.25 mg PO TID Qty: 90 2RF tramadol 50 mg tablet 50 mg PO Q8H PRN (Reason: pain) Qty: 30 0RF doxycycline monohydrate 100 mg capsule 100 mg PO BID Qty: 20 0RF acetaminophen [Tylenol Extra Strength] 500 mg Tablet 500 - 1,000 mg PO Q6H PRN (Reason: Pain) multivitamin [Daily Multi-Vitamin] Tablet 1 tab PO DAILY calcium carbonate-vitamin D2 600 mg calcium- 200 unit tablet 1 tab PO DAILY cholecalciferol (vitamin D3) [Vitamin D3] 25 mcg (1,000 unit) capsule 25 mcg PO DAILY Prolia 60 mg/mL syringe 60 mg subcut [id number] Qty: 1 3RF octreotide,microspheres [Sandostatin LAR Depot] 20 mg suspension,extended rel recon 20 mg IM Q4W Qty: 1 11RF apixaban 2.5 mg tablet 2.5 mg PO BID Qty: 180 1RF escitalopram oxalate 10 mg tablet 10 mg PO DAILY Qty: 90 1RF Primary Care Provider: Demarco Epstein Referrals: Demarco Epstein DO [Primary Care Provider] - 3-5 Days Robson Smith DO [Med Staff - Active Staff] - 3-5 Days Activity Restrictions/Additional Instructions: Follow-up with primary care physician and Dr. Smith. Return back to ED if symptoms change or worsen. Print Language: Pakistani Disposition Disposition: Home, Self Care
[2025-05-08] MEDS: 0.9% Normal Saline (1000mL) 1,000 ML 999 ML IV (07:30)
[2025-05-08 07:44] LABS: Hematocrit 41.7 % (37-47); Hemoglobin 13.7 g/dL (12.0-15.0); Immature Granulocytes Count 0.020 X10^3/uL (0.0-0.0); Mean Corp Hgb Conc 32.9 g/dL (32-36); Mean Corpuscular Volume 94.8 fL (81-99); Mean Platelet Vol. 9.0 fl (6.2-12.0); NRBC Flagged by Analyzer 0 % (0-5); Platelet Count 189 K/mm3 (150-450); RBC Distribution Width CV 13.3 % (11.6-14.6); RBC Distribution Width SD 46.9 fl (35.1-43.9); Red Blood Count 4.40 M/mm3 (4.2-5.4); White Blood Count 9.5 K/mm3 (4.4-11.0)
[2025-05-08] MEDS: Famotidine 200 MG/20 ML MDV 20 MG in 0.9% Normal Saline (Pres. free 8 ML 300 MG IV (08:08)
[2025-05-08 08:15] LABS: AST(SGOT) 39 U/L (<=31); Alanine Aminotransfer ALT/SGPT 31 U/L (<=34); Albumin, Serum 4.3 g/dL (3.4-4.8); Alkaline Phosphatase 70 U/L (35-104); Anion Gap 12 (5-15); BUN 16 mg/dL (4-19); BUN/Creat Ratio 22.4 RATIO (10-20); Bilirubin, Direct 0.16 mg/dL (0.00-0.30); Calcium,Total 9.4 mg/dL (7.6-11.0); Carbon Dioxide 25.9 mmol/L (21.0-32.0); Chloride 101 mmol/L (98-108); Estimated Creatinine Clearance 50.51 ml/min (50-250); Globulin 3.0 g/dL (2.2-4.2); Glucose 129 mg/dL (70-99); Lipase 29 U/L (13-75); Potassium 4.6 mmol/L (3.3-5.1); Troponin T High Sensitivity 9 ng/L (<=14)
[2025-05-08 08:32] VITALS: BP 187/87; PULSE 73; RESP 18; O2SAT 97
[2025-05-08 10:00] VITALS: BP 177/88; PULSE 77; RESP 18; O2SAT 99
[2025-05-08 10:16] LABS: Troponin T High Sens 2 HR 7 ng/L (<=14)
[2025-05-08 10:54] VITALS: BP 177/88; PULSE 77; RESP 18; TEMP 36.4; O2SAT 99
== END 2025-05-08 10:55 | disposition home or self-care (01) ==
PROVIDERS: Emergency Provider Surgery; PCP Family Medicine; Visit Provider Surgery
DX: R10.13 Epigastric pain (principal); F41.9 Anxiety disorder, unspecified; Z85.068 Personal history of other malignant neoplasm of small intestine; Z90.49 Acquired absence of other specified parts of digestive tract; F32.A Depression, unspecified; Z79.899 Other long term (current) drug therapy; Z90.710 Acquired absence of both cervix and uterus; F17.210 Nicotine dependence, cigarettes, uncomplicated
CPT/HCPCS: 74177; 80048; 80076; 83605; 83690; 84484; 85025; 93005; 96361; 96374; 96375; 99283; Q9967; A4216; J2405